=== PATIENT | female | born 1950 | race Caucasian/White ===

== ENCOUNTER 2016-12-30 13:34 | Outpatient (CLI) | payer MEDICARE, MEDICAID | END 2016-12-30 13:35 | disposition home or self-care (01) | DX: E78.5 Hyperlipidemia, unspecified (principal) ==

== ENCOUNTER 2017-03-21 18:36 | Emergency (ER) | payer MEDICARE, MEDICAID ==
[2017-03-21 19:17] LABS: BASOPHILS % (AUTO) 0.4 %; EOSINOPHILS # (AUTO) 0.2 10^3/uL (0.0-0.7); EOSINOPHILS % (AUTO) 1.6 %; LYMPHOCYTES # (AUTO) 1.2 10^3/uL (1.5-3.5); LYMPHOCYTES % (AUTO) 9.7 %; MEAN CORPUSCULAR HEMOGLOBIN 27.3 pg (27.0-31.0); MEAN CORPUSCULAR HGB CONC 32.6 g/dL (32.0-36.0); MEAN CORPUSCULAR VOLUME 83.5 fL (81.0-99.0); MEAN PLATELET VOLUME 9.2 fL (7.9-10.8); MONOCYTES # (AUTO) 0.8 10^3/uL (0.0-1.0); MONOCYTES % (AUTO) 6.5 %; NEUTROPHILS # (AUTO) 10.3 10^3/uL (1.5-6.6); NEUTROPHILS % (AUTO) 81.8 %; NUCLEATED RED BLOOD CELLS AUTO 0.1 /100WBC; RED BLOOD COUNT 5.51 10^6/uL (4.20-5.40); RED CELL DISTRIBUTION WIDTH 13.7 % (12.0-15.0); UNCORRECTED WHITE BLOOD COUNT 12.6 x10^3/uL; WHITE BLOOD COUNT 12.6 x10^3/uL (4.8-10.8)
[2017-03-21] MEDS ORDERED: HYDROmorphone 1 MG/ML SYRINGE IVP STA ×2 (19:26→20:31)
[2017-03-21] MEDS ORDERED: ONDANSETRON 4 MG/2 ML VIAL IVP STA (19:27)
[2017-03-21 19:33] LABS: ALBUMIN/GLOBULIN RATIO 1.1 (1.0-2.2); BILIRUBIN,TOTAL 0.9 mg/dL (0.2-1.0); CALCIUM 9.5 mg/dL (8.5-10.3); CREATININE 1.1 mg/dL (0.4-1.0); POTASSIUM 3.9 mmol/L (3.5-5.0); TOTAL PROTEIN 7.8 g/dL (6.7-8.2)
[2017-03-21] MEDS ORDERED: HYDROmorphone 1 MG/ML SYRINGE ONE ×2 (19:38→20:39)
[2017-03-21] MEDS ORDERED: ONDANSETRON 4 MG/2 ML VIAL ONE (19:38)
--- NOTE | 2017-03-21 19:54 | ED Physician Documentation ---
PD HPI ABD PAIN - Stated complaint Stated Complaint: ABD/BACK PX - Chief complaint Chief Complaint: Abd Pain - History obtained from History obtained from: Patient - History of Present Illness Timing - onset: Other (Gradual onset lower abdominal pain moving to the right over the day with now severe pain and nausea and one episode of vomiting.She had colon cancer with a partial colectomy in July of last year without adjuvant therapy.) Review of Systems Constitutional: denies: Fever, Chills Nose: reports: Reviewed and negative Cardiac: reports: Reviewed and negative Respiratory: reports: Reviewed and negative GI: reports: Abdominal Pain, Nausea, Vomiting. denies: Constipation, Diarrhea PD PAST MEDICAL HISTORY - Past Medical History Cardiovascular: High cholesterol Respiratory: COPD, Emphysema, Shortness of breath Neuro: Other Endocrine/Autoimmune: None GI: GERD, Chronic constipation, Diverticulitis : None HEENT: Other Psych: Depression, Anxiety, Panic attacks Musculoskeletal: None Derm: None Other Past Medical History: colon cancer, renal insufficiency - Past Surgical History Past Surgical History: Yes General: Bowel surgery, Colonoscopy, Other Neuro: Other - Present Medications Home Medications: Ambulatory Orders Medication Instructions Recorded Confirmed Albuterol Sulfate [Ventolin Hfa] 1 - 2 puffs INH Q6H PRN 01/07/16 03/21/17 Simvastatin [Zocor] 20 mg PO QPM 01/07/16 03/21/17 Docusate Sodium 250Mg Capsule 250 mg PO DAILY PRN #20 capsule 02/09/16 03/21/17 [Colace] Fluticasone/Vilanterol [Breo 1 puffs INH DAILY 06/24/16 03/21/17 Ellipta 200-25 Mcg INH] Tramadol HCl 50 mg PO DAILY PRN 06/24/16 03/21/17 Alprazolam 0.5 mg PO TID PRN 08/05/16 03/21/17 Tiotropium [place] [Spiriva 1 puffs INH DAILY 08/05/16 03/21/17 Respimat] HYDROcod/ACETAM 5/325 [[place] 5/325] 1 - 2 ea PO Q6H PRN #15 tablet 03/21/17 - Allergies Allergies/Adverse Reactions: Allergies Allergy/AdvReac Type Severity Reaction Status Date / Time codeine Allergy Itching Verified 02/09/16 12:11 - Social History Does the pt smoke?: Yes Smoking Status: Current every day smoker Does the pt drink ETOH?: No - Family History Family history: reports: Non contributory - Immunizations Immunizations are current?: Yes PD ED PE NORMAL - Vitals Vital signs reviewed: Yes - General General: Alert and oriented X 3, No acute distress - HEENT HEENT: PERRL, EOMI - Neck Neck: Supple, no meningeal sign, No bony TTP - Cardiac Cardiac: RRR, No murmur - Respiratory Respiratory: No respiratory distress, Clear bilaterally - Abdomen Abdomen: Other (Focal RLQ TTP, Rovsings) - Back Back: No CVA TTP, No spinal TTP - Derm Derm: Normal color, Warm and dry - Neuro Neuro: Alert and oriented X 3, Normal speech - Psych Psych: Normal mood, Normal affect Results - Vitals Vitals: Vital Signs - 24 hr 03/21/17 03/21/17 03/21/17 18:41 19:18 19:49 Temperature 36.6 C 37.3 C Heart Rate 69 87 85 Respiratory 26 H 16 95 H Rate Blood Pressure 133/88 H 141/93 H 137/82 H O2 Saturation 94 100 96 03/21/17 20:48 Temperature Heart Rate 72 Respiratory 16 Rate Blood Pressure 133/75 H O2 Saturation 92 Oxygen O2 Source Room air - Labs Labs: Laboratory Tests 03/21/17 03/21/17 03/21/17 19:00 19:00 20:48 WBC 12.6 H RBC 5.51 H Hgb 15.0 Hct 46.0 MCV 83.5 MCH 27.3 MCHC 32.6 RDW 13.7 Plt Count 310 MPV 9.2 Neut # 10.3 H Lymph # 1.2 L [place] # 0.8 Eos # 0.2 Baso # 0.0 Absolute Nucleated RBC 0.01 Nucleated RBCs 0.1 Sodium 135 Potassium 3.9 Chloride 101 Carbon Dioxide 24 Anion Gap 10.0 BUN 10 Creatinine 1.1 H Estimated GFR (MDRD) 50 L Glucose 104 H Calcium 9.5 Total Bilirubin 0.9 AST 20 ALT 10 Alkaline Phosphatase 89 Total Protein 7.8 Albumin 4.1 Globulin 3.7 Albumin/Globulin Ratio 1.1 Lipase 26 Urine Color YELLOW Urine Clarity CLEAR Urine pH 6.0 Ur Specific [place] 1.010 Urine Protein NEGATIVE Urine Glucose (UA) NEGATIVE Urine Ketones 15 H Urine Occult Blood TRACE-INTA Urine Nitrite NEGATIVE Urine Bilirubin NEGATIVE Urine Urobilinogen 0.2 (NORMAL) Ur Leukocyte Esterase NEGATIVE Ur Microscopic Review NOT INDICATED Urine Culture Comments NOT INDICATED - Rads (name of study) Ct A/P Radiology: EMP read contemporaneously (Hydronephrosis due to soft tissue mass at the right UVJ, diverticulosis, cholelithiasis.) PD MEDICAL DECISION MAKING - ED course ED course: 66-year-old woman presents with right lower quadrant pain, initial concern was for appendicitis, but review of the records showed that her appendix was removed with her hemicolectomy last year. CT findings show hydronephrosis due to a soft tissue mass at the right UVJ, further workup was recommended. I spoke with the urologist on-call for hers, Nicole Mcgee for [facility], who felt that she could be safely discharged given that her urinalysis was without evidence of infection and outpatient workup will be pursued. 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 I spoke with Dr. Nicole lou, who is partner of Dr. Alarcon's. Call her office tomorrow , the phone number is [phone], take the CD of the CAT scan with you to that appointment. Your blood pressure was elevated today on check into the emergency department. This does not mean that you have hypertension, it is a common phenomenon to come to the emergency department and have elevated blood pressure. I recommend that she see her primary care physician within the week to have it rechecked when you are feeling better.
[2017-03-21] MEDS ORDERED: IOPAMIDOL-300 100 ML VIAL IVP ONE (20:13)
[2017-03-21] MEDS ORDERED: SODIUM CHLORIDE 0.9% 1,000 ML IV ONE (20:31)
--- NOTE | 2017-03-21 21:03 | CT Preliminary Report ---
Exam: CT Abdomen/Pelvis W/ IMPRESSION: 1. Moderate right renal atrophy appears similar to the prior. There is severe right hydronephrosis an d dilated right extrarenal pelvis that appear increased. New [id number] right hydroureter with adjacent stranding and this ureter is dilated down to a new soft tissue mass at the right ureterovesi cular junction. This mass could represent a malignant mass and further workup is recommended. 2. Severe sigmoid diverticulosis without definite evidence for acute diverticulitis. 3. Cholelithiasis. 4. Otherwise, as above. [facility] SITE ID: [id number]
--- NOTE | 2017-03-21 21:06 | CT Report ---
EXAM: CT ABDOMEN AND PELVIS EXAM DATE: 03/21/2017 08:20 PM. CLINICAL HISTORY: Right lower quadrant pain. Blood in stool. COMPARISONS: CT abdomen and pelvis 06/07/2016. TECHNIQUE: Routine helical CT imaging was performed through the abdomen and pelvis. IV contrast: 80 m L Isovue 300. Enteric contrast: No. Reconstructions: Coronal and sagittal. In accordance with CT protocol optimization, one or more of the following dose reduction techniques w ere utilized for this exam: automated exposure control, adjustment of mA and/or KV based on patient s ize, or use of iterative reconstructive technique. FINDINGS: Lung Bases: Scattered calcified pulmonary nodules. Mild bibasilar scarring or atelectasis. Right lowe r lobe posterior subpleural cyst measuring 3.8 x 1.6 cm. Coronary artery calcification. Liver: Anterior liver dome liver cyst measures 1.8 cm, mildly increased from the prior. Gallbladder/Bile Ducts: Multiple calcified gallstones. No bile duct dilatation. Spleen: Normal. Pancreas: Normal. Adrenal Glands: Normal. Kidneys: Moderate atrophy of the right kidney. Severe right hydronephrosis and dilated extrarenal pel vis, increased compared to the prior. New right mild to moderate hydroureter with adjacent stranding. There is hydroureter down to the right ureterovesicular but no definite ureteral calculus is seen. T here is new soft tissue mass at the region of the right ureterovesicular junction located between the bladder and anterior vaginal wall, causes mass effect on the bladder, measures 2.5 x 3 cm and could be causing increased obstruction of the right kidney. Unremarkable left kidney. Peritoneal Cavity/Bowel: Colonic enteric anastomosis seen at the upper mid pelvis. No evidence for smooth wel obstruction. Severe sigmoid diverticulosis without definite evidence for acute diverticulitis. No perforation seen. No free fluid or free air. No evidence for abscess. No evidence for bowel obstruct ion . Pelvic Organs: See above. The uterus is anteverted. Vasculature: No abdominal aortic aneurysm. Marked atherosclerotic calcification. Bones: No acute bone findings IMPRESSION: 1. Moderate right renal atrophy appears similar to the prior. There is severe right hydronephrosis an d dilated right extrarenal pelvis that appear increased. New [id number] right hydroureter with adjacent stranding and this ureter is dilated down to a new soft tissue mass at the right ureterovesi cular junction. This mass could represent a malignant mass and further workup is recommended. 2. Severe sigmoid diverticulosis without definite evidence for acute diverticulitis. 3. Cholelithiasis. 4. Otherwise, as above. [facility] Referring Provider Line: [phone] SITE ID: [id number]
[2017-03-21 21:10] LABS: BILIRUBIN,URINE NEGATIVE (NEGATIVE)
[2017-03-21 21:21] LABS: UA CHARGE (STRIP ONLY) YES; UR CULTURE IF IND NOT INDICATED
[2017-03-21] MEDS ORDERED: HYDROcod/ACET 5/325 Prepack 6 PO STA (21:32)
[2017-03-21] MEDS ORDERED: HYDROcod/ACET 5/325 Prepack 6 PO ONE (21:35)
[2017-03-21 21:46] VITALS: BP 125/78
== END 2017-03-21 22:44 | disposition home or self-care (01) ==
LOC: ED 18:36
DX: R19.00 Intra-abdominal and pelvic swelling, mass and lump, unspecified site (principal); Q62.0 Congenital hydronephrosis; R03.0 Elevated blood-pressure reading, without diagnosis of hypertension; F17.200 Nicotine dependence, unspecified, uncomplicated; Z85.038 Personal history of other malignant neoplasm of large intestine; Z90.49 Acquired absence of other specified parts of digestive tract
CPT/HCPCS: 36415; 74177; 80053; 81003; 83690; 85025; 96374; 96375; 96376; 99284; J1170; Q9967; 81001; 87086

== ENCOUNTER 2017-08-14 08:00 | Outpatient (CLI) | payer MEDICARE, MEDICAID ==
[2017-08-14 19:05] LABS: BILIRUBIN,URINE NEGATIVE (NEGATIVE); PH,URINE 6.5 PH (5.0-7.5)
[2017-08-14 19:10] LABS: UA w/ MICROSCOPIC CHARGE YES
[2017-08-14 19:33] LABS: UR CULTURE IF IND INDICATED; WBC,URINE >25 /HPF (0-5)
== END 2017-08-14 08:01 | disposition home or self-care (01) ==
LOC: LAB.N 08:00
PROVIDERS: ATTEND Nurse Practitioner Gerontology
DX: R82.90 Unspecified abnormal findings in urine (principal); C79.11 Secondary malignant neoplasm of bladder
CPT/HCPCS: 81001; 81003; 87086

== ENCOUNTER 2017-08-14 17:20 | Outpatient (CLI) | payer MEDICARE, MEDICAID ==
--- NOTE | 2017-08-14 18:16 | CONSULTATION NOTE ---
Palliative Care Consultation - Referral Referring Provider: Laurel HYDE Time of Visit: 9809-9290 Referral setting: Home (Patient seen in her home setting secondary is considerable and taxing effort for the patient to leave the home, she is quite dizzy and has significant right lower quadrant pain. She also has poor activity tolerance) Referral Reason: Metastatic Cervical Cancer/Bladder Invasion - Information Sources Records reviewed: Previous records reviewed History/Review of Systems obtained from: Patient, Family (Dana, daughter present for most of visit) Exam limitations: Clinical condition (Patient tearful, and very very anxious) - History of Present Illness Brief History of Present Illness: Thank you Laurel Solis for asking palliative care consult seem to be involved in the care of your patient I will follow her ongoing for her symptom management needs. This is a 66-year-old woman who is very anxious, and presents with uncontrolled pain, constipation, anxiety disorder, and worsening fatigue. Her symptoms have been escalating over the last several weeks, but most severely in last few days. 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 This was in April 2017. The hope was this would relieve her right-sided abdominal and flank pain. However her pain persisted, she was admitted on 06/23/2017 with sepsis, and increasing abdominal pain, was found to have a large mass involving the lower uterine segment and cervix and posterior wall of the bladder. The dimensions are [id number]. As well as a malignant node. 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 Patient reports, I do not have confirmation of this, there are understanding of the PET scan is it is a local regional disease, she had no evidence of disease in her liver or further spread. The patient's plan is that she understands is to have a PICC placed on this week, she is to get chemoradiation starting 08/21 up at [facility]. Dr. Ted Valadez is a radiation oncologist as well as Dr. Jae Ruiz is the oncologist. Patient reports increasing abdominal pain and right groin area radiating up into the back. She has been on MS Contin 30 mg twice daily. She reports this usually has controlled her pain but over the last 24 hours she has needed to take some extra hydrocodone 5 mg/325 mg APAP with relief. Patient is also severely anxious, has not been taking her escitalopram Which she uses for her anxiety disorder as she has run out of her prescription. Unfortunately her daughter was not aware of this. Patient has also been utilizing Schofield' milk of magnesia every other day, she still has not been having good bowel movements , and with pressure has exacerbated this pain. She presents today with dehydration, nausea, and has had very little intake secondary to the above symptoms. She also reports some frequency and urgency with urinating with increased discomfort. She did provide me a urine specimen which was fairly milky in consistency. She is very reticent as far as returning back to the hospital, we did discuss can try and treat her current constellation of symptoms but if she is worse and she is to proceed to the emergency room. Medical/Surgical History - Past Medical History Cardiovascular: reports: High cholesterol Respiratory: reports: COPD, Emphysema, Shortness of breath Neuro: reports: Fainting, Other (clipped brain aneurysm) Endocrine/Autoimmune: reports: None GI: reports: GERD, Chronic constipation, Diverticulitis, Other (colon cancer;) VOLUMETRIC WEIGHER: reports: Other (cervical cancer with extension into the bladder) : reports: Incontinence, Other (nonfunctiong right kidney s/p nephrectomy) HEENT: reports: Other Psych: reports: Depression, Anxiety, Panic attacks Musculoskeletal: reports: None Derm: reports: None MRSA Hx?: No - Past Surgical History General: reports: Bowel surgery, Colonoscopy Neuro: reports: Other (clipped brain aneursym) - Substance History Tobacco Details: Cigarettes (50 pack history) Social History - Living Situation Living arrangement: At home Living Situation: With family (Relocated from [place] 2 years ago, now lives with daughter's family and daughter Dana. Dana has 3 children as well as caregiving duties to her father. Father does not live at home but is from [facility].) Family History - Family History Family History: Mother: , Father: , Sister: Cancer (bone) Medications/Allergies - Medications Home Medications: Ambulatory Orders Medication Instructions Recorded Confirmed Fluticasone/Vilanterol [Breo 1 puffs INH DAILY 06/24/16 08/14/17 Ellipta 200-25 Mcg INH] Tiotropium [place] [Spiriva 2 puffs INH BID 08/05/16 08/14/17 Respimat] Ciprofloxacin HCl [Cipro] 500 mg PO BID 08/14/17 08/14/17 Cranberry Fruit Extract [Cranberry] 1 tab PO DAILY 08/14/17 08/14/17 Escitalopram Oxalate 10 mg PO BID 08/14/17 08/14/17 HYDROcod/ACETAM 5/325 [[place] 5/325] 1 - 2 ea PO Q4HR PRN MDD 10 tabs 08/14/17 Morphine Sulfate [Morphine Sulfate 30 mg PO BID 08/14/17 08/14/17 ER] Ondansetron [Ondansetron Odt] 8 mg PO Q6HR PRN 08/14/17 08/14/17 Polyethylene Glycol 3350 [Miralax] 17 gm PO DAILY 08/14/17 08/14/17 Saccharomyces Boulardii [Florastor] 250 mg PO BID 08/14/17 08/14/17 Sennosides [Senna] 2 - 3 tab PO BID 08/14/17 08/14/17 - Allergies Allergies/Adverse Reactions: Allergies Allergy/AdvReac Type Severity Reaction Status Date / Time codeine Allergy Itching Verified 02/09/16 12:11 Review of Systems - Constitutional Constitutional: reports: Fatigue, Poor appetite, Weight loss (20-30 wt loss last few months; 6 pounds in last week). denies: Fever, Chills, Night sweats - Ears, Nose & Throat Ears, Nose & Throat: reports: Dry mouth - Cardiovascular Cardiovascular: reports: Lightheadedness, Exertional dyspnea, Decr. exercise tolerance - Respiratory Respiratory: reports: Cough, Sputum production, Wheezing, SOB at rest, SOB with exertion - Gastrointestinal Gastrointestinal: reports: Constipation, Nausea (has run out of ondansetron; did not use metoclopramide as did not perceive helped), Vomiting (at times 2--3 x day), Reflux/heartburn, Poor appetite, Early satiety - Genitourinary Genitourinary: reports: Dysuria, Frequency, Incontinence (new symptom; reports retention at times and needs to push on bladder to go), Other (reports cloudy urine for 2 days) - Musculoskeletal Musculoskeletal: reports: Stiffness, Muscle weakness, Other (spending most of time in bed) - Integumentary Integumentary: reports: Dryness - Neurological Neurological: reports: General weakness, Dizziness, Memory problems - Psychiatric Psychiatric: reports: Depression, Anxiety - Hematologic/Lymphatic Hematologic/Lymphatic: reports: Recurrent infections (hospitalized in june with sepsis) - All Other Systems All Other Systems: reports: Reviewed and negative Physical Exam - Vital Signs Temperature: 97.0 C Pulse Rate: 80 (96 with standing) Respiratory Rate: 18 O2 Saturation: 93 (ra @ rest; uses oxygen 2 liters at night and prn) Blood Pressure: 122/68 (laying; 92/64 standing) - Physical Exam General Appearance: positive: Moderate distress, Anxious Eyes Bilateral: positive: Normal inspection ENT: positive: Dry mucous membranes Neck: positive: No JVD, Trachea midline Cardiovascular: positive: Regular rate & rhythm Respiratory: positive: Diminished throughout. negative: Wheezes, Rales, Rhonchi Abdomen: positive: Abnml bowel sounds (sluggish), Tenderness (right side with minimal pressure; no mass appreciated), Guarding Skin: positive: Pallor, Dryness Extremities: positive: No pedal edema, Other (very weak) Neurologic/Psychiatric: positive: Oriented x3, Depressed mood/affect Palliative Care - POLST Patient has POLST: No Pain: Pain worsening, Location (right lower quadrant/groin worsens with pressure of bowel movements; voiding pain 05/14 time of visit), Comment (ms er 30 mg since 08/01; needing 1-2 doses 24 hours of btp using hydrocodone 5 mg/325 mg; reports oxycodone/apap makes her feel worse) Tiredness/Fatigue: Severe (7-10) Drowsiness/Sedation: Moderate (4-6) (reports sleeps most of day) Nausea: Moderate (4-6), With vomiting Depression: Moderate (4-6) Anxiety: Severe (7-10) (had run out of escitalopram last few doses using it intermittently; very tremulous) Dyspnea: Moderate (4-6) Anorexia: Severe (7-10) Sleep: Sleeps poorly (very distressed and overwhelmed with current situation; feels it worse at night) Constipation: Yes, Unmanaged (using renée mom every other day; stool hard and difficult) Feelings of wellbeing/Perceived Quality of Life: Poor, Worsening Performance Status: Patient with hospital bed set up in living room, does spend most the time in bed are recliner sleeping. She had had home health for short period of time after hospitalization, reports she had been doing fairly well with progressive ambulation and increased tolerance of activity. This shower is upstairs which does make it difficult, she does need some standby assistance with this. She is very little activity tolerance today her fatigue has been worsening and is quite dizzy with her dehydration. - Palliative Care Discussion: Patient with significant constellation of symptoms today, goal is to address these in an urgent matter. Patient very fearful of returning to hospital or going to the ED, current plan written out with hopes to be able to avoid but signs and symptoms reviewed with daughter and if any question or patient worsens particularly with any alteration in consciousness they are to proceed to the ED. I did not address advanced care directives, this visit was spent on prioritizing symptom management, establishing rapport and trust, and trying to put the pieces of the puzzle together. Patient feeling overwhelmed, daughter is quite supportive but has multiple responsibilities and has given patient quite a bit of leeway as far as managing her own care. All in agreement that Dana during this time. We will oversee her medications and assist patient. Patient currently choosing to proceed with treatment, did not explore this as patient is very anxious at today's visit. 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 She presents today with high symptom burden, including uncontrolled pain, nausea, and anorexia, dehydration, constipation and probable UTI. She also has fairly advanced COPD, with breathlessness at rest, and maximally managed. The goal is to address her current constellation of symptoms and try to avoid hospitalization and ED, the patient at high risk for sequela of such given her presentation today. Recommendations/Counseling Done: 1. Pain of neoplastic origin. Patient currently on MS extended release 30 mg twice daily. She has 3 choices for breakthrough pain, tramadol, Percocet, and Vicodin. Recommended to discontinue tramadol secondary to her underlying nausea and poor choice for breakthrough pain. Patient perceives hydrocodone with less side effects and tolerates better than Percocet, reviewed limitation with acetaminophen for titration, knows not to exceed more than 10 tabs in 24 hours. Inst. to use hydrocodone only at this time. Counseling regarding opioid safety, instructed to use breakthrough pain dosing before pain out of control, to track accordingly. Patient with severe uncontrolled pain at time of visit, instructed to take pain pill with some relief prior to end of visit. #2 anxiety disorder. This appears to be long-standing for patient, she does report she gets quite nervous and overwrought and overwhelmed with physician visits. Given her history this last year I can see how this might be exacerbated. She has been taking her escitalopram as as needed to manage her anxiety. We discussed the need to restart this and titrate up to a therapeutic dose. Prior to running out of her medication, she was on 10 mg twice daily. Reviewed with daughter and patient to start today with 5 mg twice daily for 1 week; 5 mg a.m. and 10 mg p.m. for 1 week; and then 10 mg twice daily.Will have Palliative Care Aviation Consultant see patient for support as well. 3. Nausea with intermittent vomiting. I suspect this is multifactorial in origin. She is ran out of her ondansetron, has found the metoclopramide not helpful. Rewrote prescription for ondansetron 8 mg 1 tab every 6 hours as needed. Did review this is quite constipating and if taking more than 2 doses in 24 hours to add an extra senna. 4. Dehydration. Patient probably had less than 24 ounces last 24 hours, she did have a insure and just a few bites of food. This sounds like this is been a pattern for several days. Recommended patient consider going in and getting hydration IVs either through clinic or ED, quite resistant. She would like to try oral rehydration first. Hopefully this will be more successful with the ondansetron, was instructed to increase her Ensure to 3 times a day particularly since her intake has been minimal over the last couple weeks and she has had a 6 pound weight loss. This is of concern pending her start for chemo radiation on 08/21. Did review patient would need to be eating and drinking at a better level than she is currently. 5. Anorexia. Will add dexamethasone 4 mg for 1 week and then decrease to 2 mg daily. Patient needs something to address her underlying anorexia this may also add to her management of her nausea as well as assist with pain management. Reviewed that this is will be short-term but in an attempt to get over "the hump" that she currently is experiencing. 6. Suspected UTI. Given patient's constellation of symptoms, increasing dysuria and cloudy urine for the last 2-3 days. Will go ahead and start her on Cipro 500 mg twice daily UA was taken to clinic, PCP Laurel Solis did enter a specimen order. Was informed had already started antibiotic, will watch for CHESS INSTRUCTOR as well as started on Florastor 250 mg twice daily for 2 weeks. 7. Fatigue this is multifactorial in origin, patient with dehydration, anorexia , probable UTI and uncontrolled pain. Hopefully will get some relief and support with use of the dexamethasone as well. 8. advanced care planning. Did not address at this visit as of her multiple other priorities. Did discuss with daughter if patient not improved in 2448 hrs. will need to most likely return to ED and possible hospitalization. Time Spent: 90 minutes with greater than 50% of this done in counseling regarding symptom management coordination of care with PCP and anticipatory guidance
== END 2017-08-14 17:21 | disposition home or self-care (01) ==
LOC: PC 17:20
PROVIDERS: ATTEND Nurse Practitioner Adult Health
DX: Z51.5 Encounter for palliative care (principal); G89.3 Neoplasm related pain (acute) (chronic); C53.9 Malignant neoplasm of cervix uteri, unspecified; C79.11 Secondary malignant neoplasm of bladder; F41.9 Anxiety disorder, unspecified; R11.2 Nausea with vomiting, unspecified; E86.0 Dehydration; R63.0 Anorexia; R53.83 Other fatigue; J44.9 Chronic obstructive pulmonary disease, unspecified; R10.31 Right lower quadrant pain; K59.00 Constipation, unspecified; J43.9 Emphysema, unspecified; R06.02 Shortness of breath; F32.9 Major depressive disorder, single episode, unspecified; F17.210 Nicotine dependence, cigarettes, uncomplicated; Z79.891 Long term (current) use of opiate analgesic; R63.4 Abnormal weight loss; R05 Cough; R30.0 Dysuria; M62.81 Muscle weakness (generalized)
CPT/HCPCS: 99345

== ENCOUNTER 2017-09-07 12:39 | Outpatient (CLI) | payer MEDICARE, MEDICAID | END 2017-09-07 12:40 | disposition short-term general hospital (02) | LOC: EMS 12:39 | PROVIDERS: ATTEND Surgery | DX: R06.02 Shortness of breath (principal); R42 Dizziness and giddiness; R53.1 Weakness | CPT/HCPCS: A0425; A0427 ==

== ENCOUNTER 2017-09-15 17:20 | Outpatient (CLI) | payer MEDICARE, MEDICAID ==
--- NOTE | 2017-09-15 21:01 | CONSULTATION NOTE ---
Palliative Care Follow Up - Referral Referring Provider: Laurel HYDE Time of Visit: Referral setting: Home (Patient seen her home setting secondary considerable and taxing effort for the patient to leave the home as well as to facilitate treatment plan and family conference.) Referral Reason: Met Cervical Cancer/Hydronephrosis resulting in nephrostomy tube L side - Information Sources Records reviewed: Previous records reviewed History/Review of Systems obtained from: Patient, Family (Daughter Dana primary caregiver present) Exam limitations: Clinical condition (patient with significant anxiety but improved by end of visit) - History of Present Illness Update Brief HPI Update: This is a rosa m 66-year-old woman who has had a difficult course over the last several weeks, she has metastatic cervical cancer to his feet at the lower uterine segment of the cervix as well as the posterior wall of the bladder. In the context of this it has also in case they readers and resulted in hydronephrosis of her left kidney. 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 She has started chemotherapy, after PICC line placement on 08/17, and initiated radiation therapy. Unfortunately she was admitted yet again with a severe enterococcal infection that was quite complex that resulted in sepsis and a prolonged hospitalization. Unfortunately because of the tumor, they were unable to place a stent, her understanding is they will retry this next week and she is quite hopeful. Right now she has nephrostomy tube out of her left flank. Her symptom burden includes pain, this mostly located in her right groin area radiating through her back of her pelvis. High during her hospitalization she did see the palliative care team there, was initiated on fentanyl 12 mcg and yesterday they increased it to 25 mcg patch. She does report significant euphoria with that change, but is feeling better today, does not demonstrate any sedation, or confusion regarding this. She still is using her hydrocodone for breakthrough pain medication, she is tolerated oxycodone poorly in the past. She reports her nausea is currently under control, she did have a little bit of what she thought was locked on difficulty chewing and eating, and review of her medications unable to identify any interactions are suspected underlying etiology. This is only occurred once, she denies any symptoms at time of visit. I am she has had some increased tremulousness and shaking this morning denies fever chills and this was calm down as we addressed her feelings of anxiety and distress. She does have underlying anxiety disorder, has been managed with her is salad citalopram, she does do well to process some of her fears and concerns and were able to spend some time addressing these today. Previous to my arrival, she did have a fall this is not related to balance or weakness but the dog pushing over. She does admit to intermittent dizziness, and review of her most recent labs her hemoglobin was 7.8 and hematocrit 24.5 as well as her WBC is at 13.2. Social History - Living Situation Living arrangement: At home Living Situation: With family (She relocated 2 years ago from [place] now living in with her daughter and her family. Her daughter Dana has 3 children as well as caregiving duties to her father, the patient's ex-) Medications/Allergies - Medications Home Medications: Ambulatory Orders Medication Instructions Recorded Confirmed Fluticasone/Vilanterol [Breo 1 puffs INH DAILY 06/24/16 09/16/17 Ellipta 200-25 Mcg INH] Cranberry Fruit Extract [Cranberry] 2 tab PO TID 08/14/17 09/16/17 Escitalopram Oxalate 20 mg PO DAILY 08/14/17 09/16/17 HYDROcod/ACETAM 5/325 [[place] 5/325] 1 - 2 ea PO Q4HR PRN MDD 10 tabs 08/14/17 Ondansetron [Ondansetron Odt] 8 mg PO Q8HR PRN 08/14/17 09/16/17 Polyethylene Glycol 3350 [Miralax] 17 gm PO BID 08/14/17 09/16/17 Sennosides [Senna] 3 tab PO BID 08/14/17 09/16/17 Albuterol Sulf [Ventolin Hfa 2 puffs INH Q4HR PRN 09/16/17 09/16/17 Inhaler] Budesonide/Formoterol Fumarate 2 puffs INH BID 09/16/17 09/16/17 [Symbicort 160-4.5 Mcg Inhaler] Cephalexin [Keflex] 500 mg PO TID 09/16/17 09/16/17 Dexamethasone 2 mg PO DAILY 09/16/17 09/16/17 fentaNYL [Fentanyl 25mcg patch] 25 mcg TOP DAILY 09/16/17 09/16/17 - Allergies Allergies/Adverse Reactions: Allergies Allergy/AdvReac Type Severity Reaction Status Date / Time codeine Allergy Itching Verified 02/09/16 12:11 Review of Systems - Constitutional Constitutional: reports: Fatigue, Weight loss - Eyes Eyes: reports: Vision loss, Corrective lenses - Ears, Nose & Throat Ears, Nose & Throat: reports: Hearing loss, Dry mouth - Cardiovascular Cardiovascular: reports: Exertional dyspnea, Decr. exercise tolerance, Other ( PICC right upper arm) - Respiratory Respiratory: reports: SOB with exertion. denies: Cough - Gastrointestinal Gastrointestinal: reports: Constipation (well controlled on current regimen), Good appetite. denies: Nausea, Reflux/heartburn - Genitourinary Genitourinary: reports: Other (has only right kidney; new nephrostomy tube hoping to change out to stent next week) - Musculoskeletal Musculoskeletal: reports: Stiffness, Muscle weakness, Other (fall just prioir to arrival; fell on right arm; no residual pain; dog knocked her over not attributed to balance) - Integumentary Integumentary: reports: Dryness, Other (neph. exit site with some leakage; redid lower securing device to remove kink) - Neurological Neurological: reports: General weakness - Psychiatric Psychiatric: reports: Anxiety (Long-time anxiety disorder, has spent many weeks this last couple months in the hospital, please see palliative care discussion) - Endocrine Endocrine: reports: Intolerance to cold - Hematologic/Lymphatic Hematologic/Lymphatic: reports: Anemia (24), Recurrent infections (sepsis/ urosepsis) - All Other Systems All Other Systems: reports: Reviewed and negative Physical Exam - Vital Signs Temperature: 98.8 C Pulse Rate: 108 Respiratory Rate: 20 O2 Saturation: 98 (ra @ rest) Blood Pressure: 98/62 - Physical Exam General Appearance: positive: No acute distress, Anxious Eyes Bilateral: positive: Normal inspection ENT: positive: Pharynx nml Neck: positive: Trachea midline Cardiovascular: positive: Regular rate & rhythm Respiratory: positive: Diminished throughout Abdomen: positive: Nml bowel sounds, Tenderness Skin: positive: Pallor, Dryness Palliative Care - POLST Patient has POLST: Yes POLST Status: DNR, Selective Treatment (This is filled out with Dr. Emmy Del Castillo, unfortunately the patient and daughter could not really expand further on the conversation. We did discuss at her next visit we would revisit advanced directives.) Pain: Pain improved, Location (Right groin area radiating through to the back. She is taking fentanyl 25 mcg this is a new dose as of yesterday, using hydrocodone 5 mg/325 mg for breakthrough dosing. The pain is intermittent in nature,.) Tiredness/Fatigue: Moderate (4-6) Drowsiness/Sedation: None Nausea: None Depression: Mild (1-3) Anxiety: Moderate (4-6) Dyspnea: Moderate (4-6), Comment (Ports overall her underlying COPD which is fairly severe has been doing okay, I suspect it is been tempered somewhat by the Decadron.) Anorexia: None (Reports her appetite has improved dramatically she is doing better overall. She remains on the Decadron 2 mg daily. Did discuss about titrating off if she remains with improved appetite at next visit) Sleep: Variable sleep pattern Constipation: Yes, Opoid induced, Managed (Have continued on aggressive bowel medications with MiraLAX 17 g twice daily and the senna 2 tabs 3 times daily having regular ongoing bowel movements. Have been concerned about her developing diarrhea secondary to the radiation and antibiotics as well as the chemotherapy, but continues to struggle with difficult bowels if misses medication) Feelings of wellbeing/Perceived Quality of Life: Fair, Improved Performance Status: She is feeling somewhat stronger, is able to ambulate short distances in the house. She does fatigue quite quickly though, we did discuss the influence of anemia on once ability to tolerate activity. She is getting some assistance with her daughter as far as bathing, transportation, patient is able to self feed but daughter is doing meal prep - Palliative Care Discussion: Daughter had left briefly during our visit I did have a one-on-one conversation with patient. She is feeling overwhelmed by all the events over the last few weeks, and is expressing fears particularly around not getting better, more complications and hospitalizations related to her fragile status, she does recognize the seriousness of her illness but is hoping to get both quality and quantity out of her treatment plan. She is worried about being any burden on her daughter, she is very hopeful that she will stay well and no further infections for the rest of the course of her treatment.When daughters returned I did discuss concerns, Dana would like to continue with palliative care support and working with just 1 person regarding her medications other than of course antibiotics from the specialists. We did discuss it is probably the best course of action and will try and coordinate with her other providers. Impression and Recommendations - Palliative Care Impression: This is a rosa m 66-year-old woman in an unfortunate situation with metastatic cervical cancer cancer with invasion into the bladder wall, nephrostomy tube on the left side as result of hydronephrosis. She has now had several hospitalizations for her sepsis, she is currently on oral antibiotics, concerned though about the complexity of her infection. She is currently continuing with her chemotherapy and radiation, she does present with high symptom burden, and psychosocial needs. Recommendations/Counseling Done: 1. Pain of neoplastic origin. Patient titrated up to fentanyl 25 mcg patch as of yesterday, she did have some euphoria with this. Today she is doing fairly well and adjusting. Counseling to patient and daughter regarding education on how fentanyl patch works. She does not have oversedation, has had some improved pain management with this, and less side effects. She will continue to use the hydrocodone 5 mg/325 mg for breakthrough pain, she tolerates this better has a side effect of nausea of oxycodone. 2. Constipation. Her current bowel program of MiraLAX twice daily and senna 2 tabs 3 times daily is keeping her bowels soft and moving. They are aware to watch for symptoms of diarrhea secondary to her radiation and chemotherapy. She has suffered though greatly in the past with constipation so at this point will leave the bowel program as is. 3. Complex enterococcal urinary tract infection. Patient currently on antibiotics, she does have invasion into her bladder wall this is added to the complexity of patient being able to tolerate treatment. She has been admitted now 3 times with sepsis. She is very concerned in the context of risk for future hospitalizations. She is aware though if she does present with signs and symptoms that she was less than cooperative and going in last time, she will presented to the ED as indicated. 4. Nephrostomy tube. She did have a left nephrostomy tube placement, she is quite hopeful that the stent will be replaced this week. I found tube kinked with some bleeding I suspect from pulling. Did read to progress the positioning. Dressing at nephrostomy exit site does appear permanent in nature. Call to [facility] office regarding noted bleeding, and concerns for stopcock that is making it more at high risk for pulling and dislodgment. Daughter instructed to follow-up with urologist if any further bleeding or concerns given would need to be addressed by interventional radiologist or urologist independently. 5. Anxiety. Patient does have generalized anxiety disorder. This is been exacerbated by her multiple hospitalizations, and her feelings of increased and certainly related to the outcome of her treatment. She does do well with counseling and support, she is on her salad citalopram 20 mg daily, she does have Lorazepam 0.5 mg available for escalating anxiety attacks. Counseling regarding using this but did encourage her to use this only as needed 6. Anorexia. She remains on the Decadron 2 mg daily, this has been quite helpful as far as an appetite stimulant for her. I suspect is also helped her underlying COPD as she is felt this is been fairly stable. If patient continues to do well with increased intake, no further weight loss, and eating adequate calories will look at titrating off over the next few weeks. 6. Advanced care planning. Patient did see palliative care practitioner in her last hospitalization with completion of the [facility]. It does appear it would be helpful to revisit this as far as the implications and conversations and future planning. Given the length already of our visit we agreed to defer this till next visit the patient is quite aware of the seriousness of her illness, the future implications regarding this but remains hopeful in getting both quality and quantity out of her treatment plan. Her short-term goal is just to not be rehospitalized and get her stent replaced Time Spent: 75 minutes spent with greater than 50% of this done in counseling regarding pain management, anorexia, anxiety and anticipatory guidance. Also provided coordination of care and follow-up with urology regarding nephrostomy tube.
== END 2017-09-15 17:21 | disposition home or self-care (01) ==
LOC: PC 17:20
PROVIDERS: ATTEND Nurse Practitioner Adult Health
DX: Z51.5 Encounter for palliative care (principal); G89.3 Neoplasm related pain (acute) (chronic); C79.82 Secondary malignant neoplasm of genital organs; C79.11 Secondary malignant neoplasm of bladder; K59.03 Drug induced constipation; T40.2X5D Adverse effect of other opioids, subsequent encounter; N39.0 Urinary tract infection, site not specified; B95.2 Enterococcus as the cause of diseases classified elsewhere; Z93.6 Other artificial openings of urinary tract status; F41.9 Anxiety disorder, unspecified; R63.0 Anorexia; J44.9 Chronic obstructive pulmonary disease, unspecified; N13.30 Unspecified hydronephrosis; Z90.5 Acquired absence of kidney; R10.31 Right lower quadrant pain; Z79.891 Long term (current) use of opiate analgesic; Z79.51 Long term (current) use of inhaled steroids; M62.81 Muscle weakness (generalized); R06.00 Dyspnea, unspecified; Z66 Do not resuscitate
CPT/HCPCS: 99350

== ENCOUNTER 2017-09-22 10:10 | Outpatient (CLI) | payer MEDICARE, MEDICAID ==
--- NOTE | 2017-09-22 17:19 | CONSULTATION NOTE ---
Palliative Care Follow Up - Referral Referring Provider: Laurel HYDE Time of Visit: 1010-11:15 Referral setting: Home (Patient is seen at her home setting as it is a taxing considerable effort for her to leave the home as well as to facilitate treatment plan and family conference) Referral Reason: Pain of neoplastic origin/Stage KYUNG Cervical cancer - Information Sources Records reviewed: Previous records reviewed History/Review of Systems obtained from: Patient, Family (daughter Dana present) Exam limitations: No limitations - History of Present Illness Update Brief HPI Update: This is a rosa m 66-year-old woman who continues to have a complex course regarding her 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 She is currently in concurrent chemotherapy and radiation, she is receiving weekly carboplatin. Her current mass that is being treated was found on imaging in late June, the original mass was 8.7 x 7.4 x 7.0 cm involving the lower uterine segment/ cervix continuous with the bladder wall. She also has left ureteral obstruction , most recently failed a stent placement, and has an external nephrostomy tube. Her course has been complicated by ongoing infections resulting in hospitalizations in the context of sepsis. She is currently on antibiotics, though of note her white blood count is still at 20.2, she does not present with fever or chills, but is very anxious at baseline, and recurrent hospitalizations have been difficult for her. She also has a treated cerebral aneurysm recently in the last year, removal of her right kidney for pain, long- standing COPD, and tobacco addiction. She is currently managing this with the pain. She presents with fairly high symptom burden, she is currently on fentanyl 25 mcg patch with hydrocodone 5/325 mg APAP for breakthrough pain. She had been doing well with her appetite and eating, she reports over the last week this is declined, and has lost another 4 pounds. She has early satiety, taste changes, and some underlying anxiety. Despite her chemotherapy and radiation to the pelvis, she continues to struggle with constipation, they are currently managing this with titrating her meds appropriately. She also has underlying anxiety and depression, and is easily overwhelmed. Social History - Living Situation Living arrangement: At home Living Situation: With family (She has lived with her daughter's family for the last 2 years, Dana is her primary caregiver who has 3 children's as well as caregiving duties to her father, the patient's ex-) Medications/Allergies - Medications Home Medications: Ambulatory Orders Medication Instructions Recorded Confirmed Fluticasone/Vilanterol [Breo 1 puffs INH DAILY 06/24/16 09/23/17 Ellipta 200-25 Mcg INH] Cranberry Fruit Extract [Cranberry] 2 tab PO TID 08/14/17 09/23/17 Escitalopram Oxalate 20 mg PO DAILY 08/14/17 09/23/17 HYDROcod/ACETAM 5/325 [[place] 5/325] 1 - 2 ea PO Q4HR PRN MDD 10 tabs 08/14/17 Ondansetron [Ondansetron Odt] 8 mg PO Q8HR PRN 08/14/17 09/23/17 Polyethylene Glycol 3350 [Miralax] 17 gm PO BID 08/14/17 09/23/17 Sennosides [Senna] 3 tab PO BID 08/14/17 09/23/17 Albuterol Sulf [Ventolin Hfa 2 puffs INH Q4HR PRN 09/16/17 09/23/17 Inhaler] Budesonide/Formoterol Fumarate 2 puffs INH BID 09/16/17 09/23/17 [Symbicort 160-4.5 Mcg Inhaler] Cephalexin [Keflex] 500 mg PO TID 09/16/17 09/23/17 Dexamethasone 2 mg PO DAILY 09/16/17 09/23/17 fentaNYL [Fentanyl 25mcg patch] 25 mcg TOP DAILY 09/16/17 09/23/17 LORazepam [Ativan] 0.25 - 0.5 mg PO Q6HR PRN 09/23/17 09/23/17 Lactobacillus Acidophilus 1 tab PO BID 09/23/17 09/23/17 [Probiotic Acidophilus] - Allergies Allergies/Adverse Reactions: Allergies Allergy/AdvReac Type Severity Reaction Status Date / Time codeine Allergy Itching Verified 02/09/16 12:11 Review of Systems - Constitutional Constitutional: reports: Fatigue, Weakness, Poor appetite, Weight loss (151 per MD note/scale 09/19). denies: Fever, Chills - Eyes Eyes: reports: Vision loss - Ears, Nose & Throat Ears, Nose & Throat: denies: Mouth lesions - Cardiovascular Cardiovascular: reports: Lightheadedness, Exertional dyspnea, Decr. exercise tolerance. denies: Chest pain - Respiratory Respiratory: reports: SOB with exertion. denies: Cough, Wheezing - Gastrointestinal Gastrointestinal: reports: Abdominal pain (Right lower quadrant, does radiate up into the back area.), Nausea (intermittent; using ondansetron scheduled bid- tid), Early satiety. denies: Reflux/heartburn - Genitourinary Genitourinary: reports: Other (Has nephrostomy tube, still has some spontaneous voiding at times. Urine in bag without blood today, to have procedure on 09/27 for stent placement. Is to have capped off the nephrostomy tube in case not successful) - Musculoskeletal Musculoskeletal: reports: Stiffness, Muscle weakness, Assistive devices (using walker intermittently; has had multiple falls mostly getting in and out of car;) , Other (attributes falls to balance issues) - Integumentary Integumentary: reports: Dryness - Neurological Neurological: reports: General weakness, Memory problems (Intermittently gets confused, this is been problematic since her repair of her aneurysm on top of her ongoing anxiety issues. She does have some short-term memory issues, this is quite frustrating to patient. These have worsened particularly when she is septic) - Psychiatric Psychiatric: reports: Depression, Anxiety - Endocrine Endocrine: reports: Intolerance to cold - Hematologic/Lymphatic Hematologic/Lymphatic: reports: Anemia (hct 28.2), Recurrent infections ( "urininary tract") - All Other Systems All Other Systems: reports: Reviewed and negative Physical Exam - Vital Signs Temperature: 98.4 C Pulse Rate: 99 Respiratory Rate: 20 O2 Saturation: 99 (ra @ rest) Blood Pressure: 102/64 - Physical Exam General Appearance: positive: Alert, Mild distress, Anxious Eyes Bilateral: positive: Normal inspection, No scleral icterus ENT: negative: Oral lesions Neck: positive: No JVD, Trachea midline Cardiovascular: positive: Regular rate & rhythm, Tachycardia Respiratory: positive: Diminished throughout. negative: Wheezes Abdomen: positive: Tenderness (right lower quadrent; exit site of nephrostomy tube on left) Skin: positive: Pallor, Dryness Extremities: positive: No pedal edema Neurologic/Psychiatric: positive: Oriented x3 (STM issues; easily confused if overwhelmed), Other (anxious) Palliative Care - POLST Patient has POLST: Yes POLST Status: DNR, Selective Treatment (redid and updated POLST) Pain: Pain improved, Location (right lower groin area; currently on Fentanyl 25 mcg every three days; unclear of total for break through dose/ has used both percocet and vicodin in purse; think up 6-7 tabs; daughter feels most likely less; this was weighed in discussion of increaseing patch) Tiredness/Fatigue: Severe (7-10) Drowsiness/Sedation: Mild (1-3) Nausea: Mild (1-3) Depression: Mild (1-3) Anxiety: Severe (7-10) Dyspnea: Moderate (4-6) Anorexia: Moderate (4-6) Sleep: Variable sleep pattern Constipation: Yes, Opoid induced, Managed Feelings of wellbeing/Perceived Quality of Life: Fair, Acceptable Performance Status: Is having more weakness, spends quite a bit of time in recliner and/or bed. She does attribute some of this to her balance problems. She is quite fatigued with her current daily trips to radiation. Her daughter does provide her some assistance with bathing, patient can self feed, does need some assistance with dressing overall. Daughter provides support for IADLs and medical care - Palliative Care Discussion: Patient remains very anxious about the outcome of her treatment, and just the length of time and concern about rehospitalization with infection. There are many unsettling things including the upcoming stent placement, and her concern about being a burden on her daughter. Patient does not have DPO a spelled out, she does choose Dana MECOM her daughter home phone number [phone]; cell [phone]. Have given them the paperwork to fill out, they did identify a her son as a secondary follow- up. In the context of the [facility], patient is quite distressed, does not really understand the intent or the reasoning of this. She reports she filled this out with the doctors, but had no real understanding of what this was. She did ask for them to wait for her daughter, Dana was not aware been filled out until she got home and found the form, she does not understand the implications of this. We did discuss in the context of patient and her decision-making, that she can refuse to make decisions or fill out forms without her daughter present, particularly in the context of her memory and anxiety, and wanting this to be a shared decision. Counseling done regarding the [facility], patient does want to be a DNA R, but in the context of though she understands the seriousness of her illness and most likely to have a limited life expectancy, she would continue to choose to be treated for infection as well as ongoing palliative chemotherapy. She would not want any "bills and whistles", or "heroic measures", so selective treatment was selected as well as understanding this is a DO NOT INTUBATE but not a do not treat. At this point in time she would choose for antibiotics support particularly given her current situation, but no tube feedings unless indicated for a temporary situation. We summarized her goals is to focus on quality of life, treat reversible conditions continue palliative chemotherapy and end-of- life she would like to have a at home with hospice. This was explored as far as end-of-life wishes with both her and her daughter, she does not want to be a burden to her family but her daughter would like her to be at home for that event. Questions were answered, also education provided in the role of the [facility], to keep copies with them, if needing to call 911 to make sure this is available, as well as the intent for guidelines for medical treatment overall Results - Lab Results Lab results reviewed: Yes Impression and Recommendations - Palliative Care Impression: This is a rosa m 66-year-old woman who has stage KYUNG Squamous cell cervical cancer involving the lower uterine segment/cervix and invasion into the bladder wall. She also has a left ureteral obstruction, currently with nephrostomy tube. She is receiving concurrent radiation and chemotherapy, she has had recurrent sepsis and infection and remains at high risk for both recurrent infection and possible fistula formation. Patient does present with high symptom burden, psychosocial needs, and will benefit from ongoing palliative care support Recommendations/Counseling Done: 1. Weight loss. This is multifactorial in origin, including early satiety, taste changes, and anorexia. Counseling regarding increasing ensure from 2-3 times a day, caloric suggestions as far as small frequent meals, "double milk", and other high-calorie foods. Patient currently receiving scheduled ondansetron for underlying nausea, will continue this through her chemo/ radiation. 2. Pain of neoplastic origin. She is currently on fentanyl 25 mcg patch, was confused and taking the Percocet which she is reported has caused her increased nausea in the past. Is using the hydrocodone 5 mg/325 mg for breakthrough pain. , Discussed strategy to be able to get better handle on number of tabs used, prior to increasing fentanyl patch would need to be using 5-6 consistently, they will keep track this next week. 3. Constipation they are titrating her senna and MiraLAX appropriately # 4. anxiety disorder. She is on her Lexapro 20 mg every morning, she does have Lorazepam for significant breakthrough anxiety, will have encouraged limited use of this given patient's propensity for falls and overuse. They had not decreased her dexamethasone, they will decrease to 2 mg versus 2 mg twice daily. At this point in time, long-term side effects outweigh benefit. Will titrate down to 1 mg next week. 5. Complex enterococcal urinary tract infection. Patient has just a few more days left of her antibiotics, she does present with elevated white blood cell count. We did discuss again signs and symptoms of infection for which to seek evaluation. Patient may need to go on long-term prophylactic antibiotics, particularly if she is rehospitalized. 6. Advanced care planning. Family conference regarding goals of care, [place] completed with goals defined. Daughter will complete the DPOAE form, and we will distribute her appropriate providers. Oncology note does note that long- term survival at 5 years is 16%, will benefit from ongoing palliative care involvement and support. Patient's ultimate goal at end of life is to be at home with her family, current short term goal is to avoid hospitalization, finish treatment, and improve quality of life. Time Spent: Time spent 65 minutes with greater than 50% of this done in counseling coordination of care, facilitating family conference and establishing goals, education counseling on pain and symptom management and anticipatory guidance
== END 2017-09-22 10:11 | disposition home or self-care (01) ==
LOC: PC 10:10
PROVIDERS: ATTEND Nurse Practitioner Adult Health
DX: Z51.5 Encounter for palliative care (principal); R63.4 Abnormal weight loss; G89.3 Neoplasm related pain (acute) (chronic); C53.9 Malignant neoplasm of cervix uteri, unspecified; K59.03 Drug induced constipation; T40.2X5D Adverse effect of other opioids, subsequent encounter; F41.9 Anxiety disorder, unspecified; N39.0 Urinary tract infection, site not specified; B95.2 Enterococcus as the cause of diseases classified elsewhere; Z79.899 Other long term (current) drug therapy; Z92.3 Personal history of irradiation; Z93.6 Other artificial openings of urinary tract status; J44.9 Chronic obstructive pulmonary disease, unspecified; F17.200 Nicotine dependence, unspecified, uncomplicated; Z79.891 Long term (current) use of opiate analgesic; Z79.51 Long term (current) use of inhaled steroids; M62.81 Muscle weakness (generalized); R29.6 Repeated falls; Z91.81 History of falling; F32.9 Major depressive disorder, single episode, unspecified; Z66 Do not resuscitate
CPT/HCPCS: 99350

== ENCOUNTER 2017-09-24 11:58 | Outpatient (CLI) | payer MEDICARE, MEDICAID | END 2017-09-24 11:59 | disposition short-term general hospital (02) | LOC: EMS 11:58 | PROVIDERS: ATTEND Surgery | DX: R07.9 Chest pain, unspecified (principal); R10.9 Unspecified abdominal pain; R06.00 Dyspnea, unspecified | CPT/HCPCS: A0425; A0427 ==

== ENCOUNTER 2017-09-29 10:00 | Outpatient (CLI) | payer MEDICARE, MEDICAID ==
--- NOTE | 2017-09-29 12:14 | CONSULTATION NOTE ---
Palliative Care Follow Up - Referral Referring Provider: Laurel HYDE Time of Visit: Referral setting: Home Referral Reason: Met Cervical Cancer/Pain of neoplastic origin - Information Sources Records reviewed: Previous records reviewed History/Review of Systems obtained from: Patient, Family (daughter Dana at visit) Exam limitations: No limitations - History of Present Illness Update Brief HPI Update: This is a rosa m anxious 66-year-old woman who continues have a complex course regarding her stage Zeke squamous cell cancer of the cervix. She does have a mass involving the lower uterine segment/cervix continuous with the bladder wall. She also has a left ureteral obstruction, an external nephrostomy tube. She has had multiple courses of hospitalizations in the context of sepsis, and fortunately most recently had a hospitalization from 09/24 - 09/27 actually related to a COPD exacerbation and influenza a/B. She reports only source she been exposed to have been her son-in-law, who has had a cold and has been ill. She continues to present today with anorexia, some shortness of breath, some tightness and wheezing, and cough. Her right groin pain is moderately controlled on her fentanyl 25 mcg patch, she does have hydrocodone that she is using for breakthrough pain, there is some confusion regarding how much she has been using for breakthrough pain, and agreement and her daughter monitoring this more carefully. Unfortunately as a result of her hospitalization and illness, she had to have her stent placement deferred until next week, as well as her weekly chemotherapy and radiation. This emotionally is somewhat overwhelming to her in the context that her goal is to just "get through this period of time". She does vap almost continously, so found withdrawal at the hospital adding to her anxiety. Social History - Living Situation Living arrangement: At home Living Situation: With family (lives with daughters family, set up in living room with equipment and hospital bed, Dana oversees her care) Medications/Allergies - Medications Home Medications: Ambulatory Orders Medication Instructions Recorded Confirmed Fluticasone/Vilanterol [Breo 1 puffs INH DAILY 06/24/16 09/29/17 Ellipta 200-25 Mcg INH] Cranberry Fruit Extract [Cranberry] 2 tab PO TID 08/14/17 09/29/17 Escitalopram Oxalate 20 mg PO DAILY 08/14/17 09/29/17 HYDROcod/ACETAM 5/325 [[place] 5/325] 1 - 2 ea PO Q4HR PRN MDD 10 tabs 08/14/17 Ondansetron [Ondansetron Odt] 8 mg PO Q8HR PRN 08/14/17 09/29/17 Polyethylene Glycol 3350 [Miralax] 17 gm PO BID 08/14/17 09/29/17 Sennosides [Senna] 3 tab PO BID 08/14/17 09/29/17 Albuterol Sulf [Ventolin Hfa 2 puffs INH Q4HR PRN 09/16/17 09/29/17 Inhaler] Budesonide/Formoterol Fumarate 2 puffs INH BID 09/16/17 09/29/17 [Symbicort 160-4.5 Mcg Inhaler] Dexamethasone 2 mg PO .ON HOLD 09/16/17 09/29/17 fentaNYL [Fentanyl 25mcg patch] 25 mcg TOP DAILY 09/16/17 09/29/17 LORazepam [Ativan] 0.25 - 0.5 mg PO Q6HR PRN 09/23/17 09/29/17 Lactobacillus Acidophilus 1 tab PO BID 09/23/17 09/29/17 [Probiotic Acidophilus] Oseltamivir [Tamiflu] 75 mg PO .DAILY FOR TWO DAYS 09/29/17 09/29/17 predniSONE [Deltasone] 40 mg PO .DAILY FOR 4 DAYS 09/29/17 09/29/17 - Allergies Allergies/Adverse Reactions: Allergies Allergy/AdvReac Type Severity Reaction Status Date / Time codeine Allergy Itching Verified 02/09/16 12:11 Review of Systems - Constitutional Constitutional: reports: Fatigue, Weakness, Poor appetite, Weight loss (151/ 9 pounds over last few weeks) - Eyes Eyes: reports: Vision loss, Corrective lenses - Ears, Nose & Throat Ears, Nose & Throat: reports: Hearing loss, Postnasal drainage, Other (has dentures) - Cardiovascular Cardiovascular: reports: Exertional dyspnea, Decr. exercise tolerance. denies: Chest pain - Respiratory Respiratory: reports: SOB with exertion. denies: Cough - Gastrointestinal Gastrointestinal: reports: Nausea (takes daily ondasetron), Poor appetite, Other (c/o rectal burning and swelling). denies: Constipation, Reflux/heartburn - Genitourinary Genitourinary: reports: Incontinence (when having bowel movement passing small amount of urine), Other (has nephrostomy tube; unable to get stent with hospitalization) - Musculoskeletal Musculoskeletal: reports: Stiffness, Muscle weakness, Assistive devices (using walker for longer distances; no further falls this week) - Integumentary Integumentary: reports: Dryness - Neurological Neurological: reports: General weakness, Memory problems, Other (tremors/shaking ) - Psychiatric Psychiatric: reports: Anxiety - Endocrine Endocrine: reports: Intolerance to cold - Hematologic/Lymphatic Hematologic/Lymphatic: reports: Anemia (did receive blood transfusion in hospital) - All Other Systems All Other Systems: reports: Reviewed and negative Physical Exam - Vital Signs Temperature: 97.4 C Pulse Rate: 71 Respiratory Rate: 18 O2 Saturation: 96 (ra @ rest) Blood Pressure: 132/62 - Physical Exam General Appearance: positive: Mild distress, Anxious Eyes Bilateral: positive: Conjunctivae nml ENT: positive: No signs of dehydration. negative: Pharyngeal erythema, Oral lesions Neck: positive: No JVD, Trachea midline Cardiovascular: positive: Regular rate & rhythm Respiratory: positive: Diminished throughout, Wheezes (few scattered; had just taken neb treatment; continuing to vap) Abdomen: positive: Soft, Nml bowel sounds, Tenderness (right lower quadrant), Other (nephrostomy tube exit site intact) Skin: positive: Pallor, Other (rectal area reddened; external hemmorhoids) Extremities: positive: No pedal edema Neurologic/Psychiatric: positive: Oriented x3, Mood/affect nml, Weakness, Other (anxious) Palliative Care - POLST Patient has POLST: Yes POLST Status: DNR, Selective Treatment Pain: Pain unchanged, Location (Quadrant pain, deep in right groin. Currently using Duragesic 25 mcg, only needing intermittent [place] for breakthrough pain. Rectal pain and irritation most problematic when bowels move, reports that escalates pain to 10 out of 10.) Tiredness/Fatigue: Moderate (4-6) Drowsiness/Sedation: Moderate (4-6) ( Quite exhausted from recent hospitalization just feels like "needs to rest") Nausea: Mild (1-3) Depression: Mild (1-3) Anxiety: Severe (7-10) Dyspnea: Moderate (4-6) Anorexia: Moderate (4-6), Weight loss Sleep: Variable sleep pattern Constipation: Yes, Opoid induced, Managed Feelings of wellbeing/Perceived Quality of Life: Fair, Acceptable, Worsening Performance Status: Patient with a recent hospitalization, has mostly been bedbound, she does transfer the chair. She is able to ambulate to the bathroom and toilet independently, though does need some oversight and assistance after bathing for dressing. Her daughter does provide meal prep and support for IADLs as well as transportation. I would put her at a PPS today of 50% - Palliative Care Discussion: Patient presents today as quite anxious, in describing her recent hospitalizations it is almost like a "PTSD "experience for her. She reports she just tends to sleep fair, finds it very difficult to continue to have all these complications, she is feeling somewhat overwhelmed. She is anxious to get on with her treatment and particularly get her nephrostomy tube dealt with. It is considerably stressful for the daughter, she has her own family she is trying to balance, to manage her mother's ongoing and complicated needs. Patient with severe short-term memory issues and often causes quite a bit of distress for both of them as far as her ability to remember as well as her impulsivity Impression and Recommendations - Palliative Care Impression: This is a rosa m anxious 66-year-old woman with stage Zeke squamous cell cervical cancer involving the lower uterine segment/cervix and invasion of the bladder wall. She continues to have left ureteral obstruction currently with nephrostomy tube. She is unfortunately had yet another hospitalization for influenza a/B as well as exacerbation of her COPD. She remains at high risk for recurrent sepsis and infection as she is both had recurrent hospitalizations and concern about possible fistula formation. She continues to present with high symptom burden, high psychosocial needs, will benefit from ongoing palliative care support Recommendations/Counseling Done: 1. COPD exacerbation. Patient does have L sputum well, she did feel better after recent treatment. Discussed scheduling nebulizers 3 times a day for the next 2-3 days to address moving her secretions. She is currently on prednisone , instructed on holding Decadron during this time. 2. Pain of neoplastic origin. She is currently on fentanyl 25 mcg patch, continues to be somewhat disjointed in reporting breakthrough pain medication use. Nuprin prescription are provided for hydrocodone 5 mg/325 mg. Did request daughter only give her 6 at a time, and to be able to document use. Counseling regarding need to understand how much breakthrough pain medication use as needed before titrating up patch. Currently it does appear that it is most likely adequate for managing her current regimen. 3. Weight loss. This again is multifactorial in origin, including early satiety, taste changes, and anorexia. On they are using smoothies, and sure, and intermittent ondansetron to manage her nausea. Have received counseling regarding this and reinforced. 4. Constipation. Patient is having some rectal irritation, and external hemorrhoids. Reviewed need to keep bowel movements soft and frequent. Did instruct to obtain R barrier cream to use regarding her discomfort and to aid in healing, suspect some of this is radiation-induced. 5. Anxiety disorder. She is continuing on her Lexapro 20 mg every morning, she does have Lorazepam as needed for breakthrough anxiety. I suspect the steroids and albuterol are adding to her distress, she continues to have a fairly consistently, counseling for using some cognitive behavioral techniques and deep breathing with patient to resent to herself. Will titrate down off Decadron after finishes this exacerbation of her COPD. 6. Recurrent UTIs. The patient currently not on any antibiotics, she does have nephrostomy tube, goal is to have this changed out next week. We will continue to monitor, she may need to be on prophylactic antibiotics. 6. Advanced care planning. [facility] in place, as somewhat hectic has returned recently from hospital. Will continue to work on goals of care and establishing long-term plan and support for patient and family pending medical palliative care socially responsible investment adviser in process Time Spent: 45 minutes with greater than 50% of this done in counseling coordination of care regarding med reconciliation from hospital, counseling regarding pain medication and safety management, management of constipation, and anticipatory guidance
== END 2017-09-29 10:01 | disposition home or self-care (01) ==
LOC: PC 10:00
PROVIDERS: ATTEND Nurse Practitioner Adult Health
DX: Z51.5 Encounter for palliative care (principal); J44.1 Chronic obstructive pulmonary disease with (acute) exacerbation; G89.3 Neoplasm related pain (acute) (chronic); C53.9 Malignant neoplasm of cervix uteri, unspecified; R63.4 Abnormal weight loss; K59.03 Drug induced constipation; T40.2X5D Adverse effect of other opioids, subsequent encounter; F41.9 Anxiety disorder, unspecified; Z87.440 Personal history of urinary (tract) infections; Z93.6 Other artificial openings of urinary tract status; Z79.899 Other long term (current) drug therapy; Z92.3 Personal history of irradiation; R63.0 Anorexia; Z79.891 Long term (current) use of opiate analgesic; Z79.51 Long term (current) use of inhaled steroids; Z79.52 Long term (current) use of systemic steroids; R11.0 Nausea; M62.81 Muscle weakness (generalized); Z66 Do not resuscitate
CPT/HCPCS: 99349

== ENCOUNTER 2017-10-09 13:29 | Outpatient (CLI) | payer MEDICARE, MEDICAID ==
--- NOTE | 2017-10-09 14:07 | CONSULTATION NOTE ---
Palliative Care Follow Up - Referral Referring Provider: Laurel HYDE Time of Visit: Referral setting: Home (Patient is seen her home setting secondary considerable and taxing effort to leave the home as well as to evaluate treatment care plan.) Referral Reason: Met Cervical Cancer/Pain of neoplastic origin/pneumonia - Information Sources Records reviewed: Previous records reviewed History/Review of Systems obtained from: Patient, Family (Dana - daughter present for visit) Exam limitations: No limitations - History of Present Illness Update Brief HPI Update: This is a rosa m anxious 66-year-old woman who continues to have a complex course regarding treatment for her 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 She also has a left ureteral obstruction and an external nephrostomy tube. She has had multiple courses of hospitalization, most recently was in the emergency room on 10/06 with progressive symptoms of her COPD, resulting in a diagnosis of pneumonia, as well as dehydration. She was worked up for PE, at this point in time though her diameter was increased it was negative. She reports she has been doing much better, she still has some tightness and wheezing and cough but improved overall. Her right groin pain is controlled on her fentanyl 25 mcg patch she has only needed to use 7 tabs of hydrocodone over almost 2 weeks. Her pain is located deep in her right groin, it is exacerbated with bowel movements, but for the most part overall is improving. She did have her stent deferred again until next Monday, the hope is been to have it replaced on Monday. I am she was put on Augmentin and azithromycin for her diagnosis, in the context of the workup that was actually mentioned it might be aspiration pneumonia. Social History - Living Situation Living arrangement: At home Living Situation: With family (Patient lives with her daughter Dana, she tries to be as independent as possible, but does need personal assist with her care needs as well as oversight for her medication and appointments.) Medications/Allergies - Medications Home Medications: Ambulatory Orders Medication Instructions Recorded Confirmed Fluticasone/Vilanterol [Breo 1 puffs INH DAILY 06/24/16 10/09/17 Ellipta 200-25 Mcg INH] Cranberry Fruit Extract [Cranberry] 2 tab PO TID 08/14/17 10/09/17 Escitalopram Oxalate 20 mg PO DAILY 08/14/17 10/09/17 HYDROcod/ACETAM 5/325 [[place] 5/325] 1 - 2 ea PO Q4HR PRN MDD 10 tabs 08/14/17 Ondansetron [Ondansetron Odt] 8 mg PO Q8HR PRN 08/14/17 10/09/17 Polyethylene Glycol 3350 [Miralax] 17 gm PO BID 08/14/17 10/09/17 Sennosides [Senna] 3 tab PO BID 08/14/17 10/09/17 Albuterol Sulf [Ventolin Hfa 2 puffs INH Q4HR PRN 09/16/17 10/09/17 Inhaler] Budesonide/Formoterol Fumarate 2 puffs INH BID 09/16/17 10/09/17 [Symbicort 160-4.5 Mcg Inhaler] Dexamethasone 1 mg PO .FOR 2 DAYS 09/16/17 10/09/17 fentaNYL [Fentanyl 25mcg patch] 25 mcg TOP DAILY 09/16/17 10/09/17 LORazepam [Ativan] 0.25 - 0.5 mg PO Q6HR PRN 09/23/17 10/09/17 Lactobacillus Acidophilus 1 tab PO BID 09/23/17 10/09/17 [Probiotic Acidophilus] Amox/Clav 875/125 [Augmentin 1 tab PO .BID 4 DAYS 10/09/17 10/09/17 875/125] Azithromycin 250 mg PO .DAILY 2 DAYS 10/09/17 10/09/17 - Allergies Allergies/Adverse Reactions: Allergies Allergy/AdvReac Type Severity Reaction Status Date / Time codeine Allergy Itching Verified 02/09/16 12:11 Review of Systems - Constitutional Constitutional: reports: Fatigue, Weakness, Poor appetite, Weight loss - Eyes Eyes: reports: Vision loss, Corrective lenses - Ears, Nose & Throat Ears, Nose & Throat: reports: Other (edentulous). denies: Mouth lesions - Cardiovascular Cardiovascular: reports: Lightheadedness, Decr. exercise tolerance - Respiratory Respiratory: reports: Cough, Sputum production (light yellow), SOB with exertion - Gastrointestinal Gastrointestinal: reports: Nausea (fairly severe every AM for several months; using ondansetron daily), Early satiety. denies: Constipation, Diarrhea, Reflux /heartburn - Genitourinary Genitourinary: reports: Other (has nephrostomy tube; occasional goes through urethra) - Musculoskeletal Musculoskeletal: reports: Stiffness, Muscle weakness, Assistive devices (uses walker for balance) - Integumentary Integumentary: reports: Dryness - Neurological Neurological: reports: General weakness, Memory problems (intermittent; worsened on Monday suspect dehydration;), Incoordination - Psychiatric Psychiatric: reports: Depression, Anxiety - Hematologic/Lymphatic Hematologic/Lymphatic: reports: Anemia, Recurrent infections (UTI/now pneumonia ; resent influenza B) - All Other Systems All Other Systems: reports: Reviewed and negative Physical Exam - Vital Signs Temperature: 97.5 C Pulse Rate: 78 Respiratory Rate: 18 O2 Saturation: 95 (ra @ rest) Blood Pressure: 112/72 - Physical Exam General Appearance: positive: No acute distress, Anxious Eyes Bilateral: positive: Normal inspection, No scleral icterus ENT: negative: Pharyngeal erythema Neck: positive: No JVD, Trachea midline Cardiovascular: positive: Regular rate & rhythm Respiratory: positive: Diminished in bases, Rales (crackles left lower lobe) Abdomen: positive: Soft, Nml bowel sounds Skin: positive: Pallor, Other (exit site of nephrostomy tube without leakage or s/s infection) Extremities: positive: No pedal edema Neurologic/Psychiatric: positive: Oriented x3, Mood/affect nml, Weakness Palliative Care - POLST Patient has POLST: Yes POLST Status: DNR, Selective Treatment Pain: Pain improved (worse in am; addressed with ondansetron), Location (right groin area; 0/10) Tiredness/Fatigue: Moderate (4-6) Drowsiness/Sedation: None Nausea: Moderate (4-6) Depression: Moderate (4-6) Anxiety: Severe (7-10) (reports improved though; less tremors noted in conversation;) Dyspnea: Moderate (4-6) (using neb still bID) Anorexia: Moderate (4-6) Sleep: Variable sleep pattern Constipation: Yes, Opoid induced, Managed Feelings of wellbeing/Perceived Quality of Life: Fair, Acceptable Performance Status: Daughter does assist with bathing, meal prep, and oversight for transfers. Patient is ambulating for longer distance with walker, "furniture walks" for shorter distances. She is quite unsteady and dizzy when she is up, suspect she is continuing to struggle with dehydration. She did get a couple units of blood prior hospitalization, with some improvement. - Palliative Care Discussion: Patient short-term goal is to finish with radiation/chemo. Her radiation is time-limited suspect it got extended because of her hospitalizations/illnesses. She was originally scheduled to finish 10/20. We discussed the normal course of illness, is then to have a reevaluation as far as follow-up where her current tumor burden is, as well as ongoing monitoring long-term. Patient does have underlying anxiety, we did discuss the goals would certainly be to focus on getting back to "a new normal". Patient does struggle with multiple financial and psychosocial stressors. I did encourage daughter Dana, to follow-up with [facility] at the [facility] as far as becoming patients shannan worker Impression and Recommendations - Palliative Care Impression: This is a rosa m anxious 66-year-old woman with stage Zeke squamous cell cervical cancer involving the lower uterine segment/cervix and invasion of bladder wall. She has not had her nephrostomy tube on the left replaced yet she does have a left ureteral obstruction. She is hoping this is to be addressed this week. She has recently had influenza A/B as well as exacerbation of her COPD, and this last Monday was diagnosed with dehydration and pneumonia. She is currently on antibiotics, is responding well and feeling much better. She continues to present with high symptom burden, high psychosocial needs related to anxiety and depression, will continue to benefit from palliative care support. Recommendations/Counseling Done: 1. Dehydration. Patient's urine and her nephrostomy bag is slightly darkened. We did discuss the goal would be to have had a light yellow. She has been trying to figure out "how much to drink". We did discuss as far as counseling strategies to improve her fluid intake as she does get behind and symptomatic. 2. Pain of neoplastic origin she is currently on fentanyl 25 mcg patch, not needing much for breakthrough pain. Does feel it is much improved over the morphine as well as decreased nausea with this. We will continue to monitor, with tumor shrinkage, may be able to titrate back. 3. Weight loss. Again this is multifactorial in origin. She has finished her prednisone, and has restarted her Decadron. Dr. Srinivasan did prescribe Megace, I am somewhat concerned because of her clot risk, did instruct them though to decrease the dexamethasone to 1 mg for 2 days, then discontinue and start the Megace at that point in time. Can weigh the benefits and burdens of which might be more effective for them, I did tell them it takes at least 7 days before rule out is not working. Patient's appetite though has improved I suspect this is to do with her infections have been treated, again encouraged use of Ensure. 4. Constipation. Patient reports having regular soft bowel movements. 5. Recurrent UTIs. Patient is currently on antibiotics, she does have nephrostomy tube, the goal is have this changed out next week. She is on antibiotics actually for her pneumonia, though these would adjust any concerns for UTI though her urine was negative on Monday. 6. Advanced care planning. [facility]FE[address] in place, will continue to work on goals of care, and exception long-term plan and support pending medical palliative care social science instructor referral in process. Time Spent: 45 minutes with greater than 50% of this done in counseling regarding symptom management, anticipatory guidance, and psychosocial support as well as coordination of care and follow-up regarding shannan
== END 2017-10-09 13:30 | disposition home or self-care (01) ==
LOC: PC 13:29
PROVIDERS: ATTEND Nurse Practitioner Adult Health
DX: Z51.5 Encounter for palliative care (principal); E86.0 Dehydration; G89.3 Neoplasm related pain (acute) (chronic); C53.9 Malignant neoplasm of cervix uteri, unspecified; R63.4 Abnormal weight loss; N39.0 Urinary tract infection, site not specified; Z93.6 Other artificial openings of urinary tract status; J44.9 Chronic obstructive pulmonary disease, unspecified; Z79.891 Long term (current) use of opiate analgesic; Z79.51 Long term (current) use of inhaled steroids; R11.0 Nausea; M62.81 Muscle weakness (generalized); F32.9 Major depressive disorder, single episode, unspecified; F41.9 Anxiety disorder, unspecified; R06.00 Dyspnea, unspecified; K59.03 Drug induced constipation; T40.2X5D Adverse effect of other opioids, subsequent encounter; Z66 Do not resuscitate
CPT/HCPCS: 99349

== ENCOUNTER 2017-10-20 14:17 | Outpatient (CLI) | payer MEDICARE, MEDICAID ==
--- NOTE | 2017-10-20 14:21 | CONSULTATION NOTE ---
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 She also had a left ureteral obstruction, with an external nephrostomy tube, she did have this replaced this last week. She has not been voiding as frequently, she reports the urine is slightly dark, it does not appear she has been drinking enough fluids. She has received her last chemotherapy, and she is due for her last radiation this next Monday. She will then have her follow-up scans after that no date is been set. Unfortunately this week, she was unable to fill her fentanyl 25 mcg patch and this ran out on Monday, she was instructed to use short acting hydrocodone, but this made her too dizzy and did not tolerate it well as far as her 2 tabs every 4-6 hours. She received another prescription for a buprenorphine patch, but those are not available either. In the meantime patient's pain has escalated in the right groin, with sharp shooting, as well as she is describing symptoms of withdrawal with diarrhea, watery eyes, increased nausea, and tremulousness. She still has some tightness and shortness of breath, this is responding to her DuoNeb, her cough though productive is clear. Social History - Living Situation Living arrangement: At home Living Situation: With family (She lives with her daughter Dana, there has been some increased stress in the home, patient does get quite anxious regarding this.) Medications/Allergies - Medications Home Medications: Ambulatory Orders Medication Instructions Recorded Confirmed Fluticasone/Vilanterol [Breo 1 puffs INH DAILY 06/24/16 10/20/17 Ellipta 200-25 Mcg INH] Cranberry Fruit Extract [Cranberry] 2 tab PO TID 08/14/17 10/20/17 Escitalopram Oxalate 20 mg PO DAILY 08/14/17 10/20/17 HYDROcod/ACETAM 5/325 [[place] 5/325] 1 - 2 ea PO Q4HR PRN MDD 10 tabs 08/14/17 Ondansetron [Ondansetron Odt] 8 mg PO Q8HR PRN 08/14/17 10/20/17 Polyethylene Glycol 3350 [Miralax] 17 gm PO BID 08/14/17 10/20/17 Sennosides [Senna] 3 tab PO BID 08/14/17 10/23/17 Albuterol Sulf [Ventolin Hfa 2 puffs INH Q4HR PRN 09/16/17 10/20/17 Inhaler] Budesonide/Formoterol Fumarate 2 puffs INH BID 09/16/17 10/20/17 [Symbicort 160-4.5 Mcg Inhaler] fentaNYL [Fentanyl 25mcg patch] 25 mcg TOP DAILY 09/16/17 10/20/17 LORazepam [Ativan] 0.25 - 0.5 mg PO Q6HR PRN 09/23/17 10/20/17 Lactobacillus Acidophilus 1 tab PO BID 09/23/17 10/20/17 [Probiotic Acidophilus] - Allergies Allergies/Adverse Reactions: Allergies Allergy/AdvReac Type Severity Reaction Status Date / Time codeine Allergy Itching Verified 02/09/16 12:11 Review of Systems - Constitutional Constitutional: reports: Fatigue, Poor appetite, Weight loss - Eyes Eyes: reports: Vision loss, Corrective lenses - Ears, Nose & Throat Ears, Nose & Throat: reports: Nasal congestion, Dry mouth - Cardiovascular Cardiovascular: reports: Lightheadedness, Exertional dyspnea, Decr. exercise tolerance - Respiratory Respiratory: reports: Cough (clear; decreased from last week), SOB with exertion - Gastrointestinal Gastrointestinal: reports: Diarrhea (over last several days; suspect more likely withdrawel than SE of treatment as has not had before), Nausea, Poor appetite, Early satiety - Genitourinary Genitourinary: reports: Urgency, Other (nephrostomy tube replace with stent;) - Musculoskeletal Musculoskeletal: reports: Stiffness, Muscle weakness, Assistive devices (uses walker when not in home) - Integumentary Integumentary: reports: Dryness - Neurological Neurological: reports: General weakness, Headache, Memory problems - Psychiatric Psychiatric: reports: Depression, Anxiety - Hematologic/Lymphatic Hematologic/Lymphatic: reports: Anemia, Recurrent infections (both pneumonia/ utis/urosepsis history) - All Other Systems All Other Systems: reports: Reviewed and negative Physical Exam - Vital Signs Temperature: 97.8 C Pulse Rate: 105 Respiratory Rate: 18 O2 Saturation: 98 (ra @ rest) Blood Pressure: 110/52 - Physical Exam General Appearance: positive: Mild distress, Anxious Eyes Bilateral: positive: Normal inspection ENT: negative: Oral lesions Neck: positive: No JVD, Trachea midline Cardiovascular: positive: Tachycardia Respiratory: positive: Diminished throughout. negative: Wheezes, Rales, Rhonchi Abdomen: positive: Soft, Tenderness, Guarding, Other (concern regarding decreased urinary output; not able to palpate any bladder distension) Skin: positive: Pallor, Dryness, Other (well healed neph. exit site) Extremities: positive: No pedal edema Neurologic/Psychiatric: positive: Oriented x3, Weakness, Depressed mood/affect Palliative Care - POLST Patient has POLST: Yes POLST Status: DNR, Selective Treatment Pain: Pain worsening, Location (right groin area; had been improving prior to stopping Fentanyl Patch; has only been using about 3 hydrocodone a day last few days;) Tiredness/Fatigue: Moderate (4-6) Drowsiness/Sedation: None Nausea: Moderate (4-6) Depression: Moderate (4-6) Anxiety: Severe (7-10) Dyspnea: Moderate (4-6) Anorexia: Moderate (4-6) Sleep: Variable sleep pattern Constipation: Comment (new diarrhea; previously on bowel program with good results) Feelings of wellbeing/Perceived Quality of Life: Poor, Worsening, Comment (this is related to poor pain control;) Performance Status: Patient quite frail, she is able to ambulate though her balance is poor in the house. She does use a walker outside. Her daughter does assist her with bathing.I would put her at a PPS of 60% - Palliative Care Discussion: Patient quite discouraged, and has she been doing so well, with her fentanyl 25 mcg patch and improvement in her pain as well as her energy. She does appear dehydrated today, as well as experiencing symptoms of withdrawal. We did discuss this in the context of moving forward. Patient does struggle with multiple financial and psychosocial stressors, the medical palliative care social services counselor will be following up with her next week. Results - Lab Results Lab results reviewed: Yes Impression and Recommendations - Palliative Care Impression: This is a 66-year-old woman with stage IV squamous cell cervical carcinoma involving the lower uterine/cervix and invasion of the bladder wall. She recently had influenza A/B as well as exacerbation of her COPD this does appear to be improving. Today though she presents with symptoms again of dehydration, and unfortunately opioid withdrawal. She is discouraged, and her anxiety has exacerbated, continue to provide palliative care support. Recommendations/Counseling Done: 1. Dehydration. Patient reports her urine is dark, she gets discouraged that she is not feeling well now she has diarrhea, she has been concentrating on water which does not taste good. We did discuss that it can be any fluids, she was able to identify fluids that she would more likely be able to comply with. He also discussed in the context of her weight loss that this would be preferable overall. 2. Pain of neoplastic origin. I did call around to different pharmacies, it is only 1 brand that is not available, and fortunately it is on the supplier issue to the current pharmacy. [facility] did have 2 boxes per their report, daughter will try and get them from there, discussed this is important that she have these replaced as she is experiencing withdrawal and it was also quite effective. In the meantime told the patient to take her hydrocodone more frequently, if the 2 tabs are too much to take it 1 tab every 3-4 hours to at least try and get 6-8 tabs as this would be near the equivalent that she was on. 3. Opioid withdrawal. Patient went from an equivalent of about 10 hydrocodone to taking 3 hydrocodone in 24 hours. Counseling regarding patient's symptoms, though not life-threatening can certainly make one feel poorly. Also encouraged to use the Imodium more aggressively. 4. Recurrent UTIs. Patient now with ureteral stent versus nephrostomy tube, Again reviewed need to push fluids, concern patient remains at high risk for recurrent infection. 5. Advanced care planning. [facility]FE[address] in place, will continue to work on goals of care as well as long-term plan. Time Spent: 45 minutes with greater than 50% of this done in counseling regarding opioid education, symptom management, and dehydration as well as coordination of care and obtaining opioid prescription. Plan to call midweek next week to set next appointment depending on outcome of last appointments.
== END 2017-10-20 14:18 | disposition home or self-care (01) ==
LOC: PC 14:17
PROVIDERS: ATTEND Nurse Practitioner Adult Health
DX: Z51.5 Encounter for palliative care (principal); E86.0 Dehydration; G89.3 Neoplasm related pain (acute) (chronic); C53.9 Malignant neoplasm of cervix uteri, unspecified; C79.89 Secondary malignant neoplasm of other specified sites; J44.9 Chronic obstructive pulmonary disease, unspecified; F11.23 Opioid dependence with withdrawal; N39.0 Urinary tract infection, site not specified; N13.5 Crossing vessel and stricture of ureter without hydronephrosis; Z93.6 Other artificial openings of urinary tract status; Z79.899 Other long term (current) drug therapy; R19.7 Diarrhea, unspecified; Z79.891 Long term (current) use of opiate analgesic; M62.81 Muscle weakness (generalized); R11.0 Nausea; F32.9 Major depressive disorder, single episode, unspecified; F41.9 Anxiety disorder, unspecified; R63.0 Anorexia; Z66 Do not resuscitate
CPT/HCPCS: 99349

== ENCOUNTER 2017-11-03 13:55 | Outpatient (CLI) | payer MEDICARE, MEDICAID ==
--- NOTE | 2017-11-03 13:57 | CONSULTATION NOTE ---
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 She also had a left ureteral obstruction with now a stent in place. She has completed her chemotherapy, and is due for her last radiation therapy treatment today. She does have some increased symptoms of cystitis, rectal discomfort, and diarrhea. These are as a sequela most likely of her radiation. She is able to manage her diarrhea with intermittent loperamide use. She has had some increase in pain, she is needing an additional hydrocodone 3 or 4 times a day above her baseline fentanyl 25 mcg patch. Is mostly pinpoint and located over where the concentration of her radiation is. She did get good news her MRI did show positive response to her treatment, and she is due for follow-up in January. She did report an episode of cloudy urine last week, has not had progressive symptoms, though she was put on terzonazole vaginal cream, though she is having no symptoms. She presents as quite elated to be finishing her treatment, she is still having a fairly high degree of pain and discomfort, residual fatigue, her anxiety continues to fluctuate. She has had an improvement in her anorexia she has gained weight up to 157. Her appetite is good. She is still needing ondansetron about once a day for nausea. She is looking forward to the next few weeks as far as getting back to "a new normal". Social History - Living Situation Living arrangement: At home Living Situation: With family (She lives with her daughter and her family, she is very much wanting not to put any further stress on her daughter. Is looking forward to having less doctor's appointments and being able to feel better so she can provide support in the home.) Medications/Allergies - Medications Home Medications: Ambulatory Orders Medication Instructions Recorded Confirmed Fluticasone/Vilanterol [Breo 1 puffs INH DAILY 06/24/16 11/03/17 Ellipta 200-25 Mcg INH] Escitalopram Oxalate 20 mg PO DAILY 08/14/17 11/03/17 HYDROcod/ACETAM 5/325 [[place] 5/325] 1 - 2 ea PO Q4HR PRN MDD 10 tabs 08/14/17 Ondansetron [Ondansetron Odt] 8 mg PO Q8HR PRN 08/14/17 11/03/17 Polyethylene Glycol 3350 [Miralax] 17 gm PO BID PRN 08/14/17 11/03/17 Sennosides [Senna] 3 tab PO BID PRN 08/14/17 11/03/17 Albuterol Sulf [Ventolin Hfa 2 puffs INH Q4HR PRN 09/16/17 11/03/17 Inhaler] Budesonide/Formoterol Fumarate 2 puffs INH BID 09/16/17 11/03/17 [Symbicort 160-4.5 Mcg Inhaler] fentaNYL [Fentanyl 25mcg patch] 25 mcg TOP DAILY 09/16/17 11/03/17 LORazepam [Ativan] 0.25 - 0.5 mg PO Q6HR PRN 09/23/17 11/03/17 Ipratropium/Albuterol [Duoneb] 1 inh INH Q6HR PRN 11/03/17 11/03/17 Loperamide [Imodium] 2 mg PO Q4HR PRN 11/03/17 11/03/17 - Allergies Allergies/Adverse Reactions: Allergies Allergy/AdvReac Type Severity Reaction Status Date / Time codeine Allergy Itching Verified 02/09/16 12:11 Review of Systems - Constitutional Constitutional: reports: Fatigue, Weakness, Weight gain. denies: Fever, Chills - Eyes Eyes: reports: Vision loss, Corrective lenses - Ears, Nose & Throat Ears, Nose & Throat: reports: Dry mouth - Cardiovascular Cardiovascular: reports: Lightheadedness, Exertional dyspnea, Decr. 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 denies: Suicidal - Endocrine Endocrine: denies: Diabetes type 2, Hypothyroidism - Hematologic/Lymphatic Hematologic/Lymphatic: reports: Anemia, Recurrent infections (utis) - All Other Systems All Other Systems: reports: Reviewed and negative Physical Exam - Vital Signs Temperature: 97.2 C Pulse Rate: 88 Respiratory Rate: 18 O2 Saturation: 96 Blood Pressure: 142/82 - Physical Exam General Appearance: positive: No acute distress, Anxious Eyes Bilateral: positive: Normal inspection ENT: positive: No signs of dehydration Neck: positive: No JVD, Trachea midline Cardiovascular: positive: Regular rate & rhythm Respiratory: positive: Diminished throughout, Wheezes (exp wheeze left lower lobe) Abdomen: positive: Soft, Nml bowel sounds, Tenderness (right lower quadrant) Skin: positive: Pallor, Dryness Extremities: positive: No pedal edema Neurologic/Psychiatric: positive: Oriented x3, Mood/affect nml Palliative Care - POLST Patient has POLST: Yes POLST Status: DNR Pain: Pain worsening, Location (Right lower quadrant, worsens with bowel movements. Sharp shooting, is relieved with hydrocodone intermittently. She is on baseline fentanyl 25 mcg patch. She does have chronic underlying back pain at baseline.) Tiredness/Fatigue: Severe (7-10) Drowsiness/Sedation: Mild (1-3) Nausea: Mild (1-3) Depression: Mild (1-3) Anxiety: Moderate (4-6) Dyspnea: Mild (1-3) Anorexia: None Sleep: Sleeps well Constipation: No Feelings of wellbeing/Perceived Quality of Life: Fair, Improved Performance Status: Patient is better able to shower without having PICC line and nephrostomy tube. She still has very poor activity tolerance. But is able to ambulate short distances. She is still using a walker when she goes out for balance. - Palliative Care Discussion: Counseling regarding patient's current state of mind, she is much encouraged she is done with treatment. She does at baseline have generalized anxiety disorder, we did discuss and approached it from a cognitive behavioral therapy intervention, as reframing, focusing on the moment, and setting short-term goals. She does understand the seriousness of her illness, but is hoping for some reprieve. We did discuss long-term support, she did benefit from her counseling with the delinquency prevention social worker, will continue to provide that support to our team. 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 She has had a positive response to her chemoradiation, and is to complete that test today. She still continues with fairly high symptom burden. This most likely currently is the sequela of her treatment side effects from radiation. Will continue to provide palliative care support for symptom management and adjustment to illness. Palliative care to provide ongoing support and adjust treatment plan as indicated regarding disease process. Recommendations/Counseling Done: 1. Pain of neoplastic origin. Did manage to find fentanyl patches last visit, patient's opioid withdrawal symptoms resolved. She still has significant right lower quadrant pain, suspect this is a side effect regarding her radiation. We will continue to follow she most likely will have some sequela and chronic pain regarding her cancer and cancer treatment. Did reassure patient we would titrate appropriately, she is already experienced some significant side effects from withdrawal symptom in the context the patches were not available. 2. Recurrent UTIs. Patient is not presenting with any symptoms currently, though she does remain quite concerned. We did review again her best approach would be to push fluids. I did leave her a specimen cup and lab slip if patient has recurrent symptoms. 3. Generalized anxiety disorder. She is currently on her escitalopram, she does feel this is working adequately for her. She does notice difference when she does not take it. She would like to continue with palliative care delinquency prevention social worker as well. 4. Fatigue, this is multifactorial in origin. We did discuss in the context of her current trajectory. Recommended progressive ambulation, she does have a home exercise program from her time with physical therapy at home. She is going to introduce and initiate this as her energy allows. Did offer outpatient prescription for therapy if she felt she needed more support. Time Spent: 45 minutes with greater than 50% of this done in counseling regarding symptom management and anticipatory guidance.
== END 2017-11-03 13:56 | disposition home or self-care (01) ==
LOC: PC 13:55
PROVIDERS: ATTEND Nurse Practitioner Adult Health
DX: Z51.5 Encounter for palliative care (principal); G89.3 Neoplasm related pain (acute) (chronic); C53.9 Malignant neoplasm of cervix uteri, unspecified; N32.9 Bladder disorder, unspecified; N39.0 Urinary tract infection, site not specified; F41.1 Generalized anxiety disorder; R53.83 Other fatigue; Z96.0 Presence of urogenital implants; R19.7 Diarrhea, unspecified; R11.0 Nausea; Z79.891 Long term (current) use of opiate analgesic; M62.81 Muscle weakness (generalized); F32.9 Major depressive disorder, single episode, unspecified; Z66 Do not resuscitate
CPT/HCPCS: 99349

== ENCOUNTER 2017-11-06 09:30 | Outpatient (CLI) | payer MEDICARE, MEDICAID ==
[2017-11-06 18:58] LABS: BILIRUBIN,URINE NEGATIVE (NEGATIVE); GLUCOSE, URINE (UA) NEGATIVE (NEGATIVE); KETONES,URINE (UA) NEGATIVE (NEGATIVE); LEUKOCYTE ESTERASE, URINE SMALL (NEGATIVE); NITRITE,URINE NEGATIVE (NEGATIVE); OCCULT BLOOD,URINE LARGE (NEGATIVE); PH,URINE 5.5 PH (5.0-7.5); PROTEIN,URINE 100 mg/dL (NEGATIVE); UROBILINOGEN,URINE 0.2 (NORMAL) E.U./dL (NORMAL)
[2017-11-06 19:10] LABS: CLARITY,URINE SL. CLOUDY (CLEAR)
[2017-11-06 19:11] LABS: BACTERIA,URINE Few /HPF (None Seen); RBC,URINE TNTC /HPF (0-5); SQUAMOUS EPITHELIAL CELL,UR RARE Squamous (<= Few); YEAST,URINE PRESENT
== END 2017-11-06 09:31 | disposition home or self-care (01) ==
LOC: LAB.N 09:30
PROVIDERS: ATTEND Nurse Practitioner Adult Health
DX: N32.9 Bladder disorder, unspecified (principal); N39.0 Urinary tract infection, site not specified
CPT/HCPCS: 81001; 81003; 87086

== ENCOUNTER 2017-11-10 12:20 | Emergency (ER) | payer MEDICARE, MEDICAID ==
--- NOTE | 2017-11-10 12:41 | ED Physician Documentation ---
History of Present Illness - Stated complaint Stated Complaint: FEMALE /DIZZY - Chief complaint Chief Complaint: Abd Pain - History obtained from History obtained from: Patient, Family - History of Present Illness Timing: Chronic Pain level max: 7 Pain level now: 7 Improved by: vicodin, fentanyl Worsened by: movement, palpation. - Additonal information Additional information: Patient is a 66-year-old female who presents to the emergency department with concern regarding her bladder. She has recently undergone chemotherapy and radiation for stage IV cervical cancer that has invaded the bladder wall. Has had multiple recurrent UTIs and yeast infections. Is currently being treated for a UTI and a yeast infection. She was seen by Sarah Manrique from palliative care today and sent in for a "bladder scan". She receives most of her care at [facility]. States feels dizzy and lighteaded when standing. Has chronic abd pain. Lower abdomen and back. Takes vicodin and fentanyl at home for this. She is on keflex and diflucan. Stopped her steroids and ondansetron when she started on diflucan on monday. States still not feeling well today. No fevers. States daily smoker and is still smoking. Last radiation/chemo was 1 week ago. Review of Systems Ten Systems: 10 systems reviewed and negative Constitutional: denies: Fever, Chills Ears: denies: Ear pain Nose: denies: Rhinorrhea / runny nose, Congestion Throat: denies: Sore throat Cardiac: denies: Chest pain / pressure Respiratory: reports: Dyspnea (chronic) GI: denies: Nausea, Vomiting, Diarrhea : reports: Dysuria, Frequency, Hesitancy Skin: denies: Rash Musculoskeletal: denies: Neck pain, Back pain Neurologic: denies: Headache PD PAST MEDICAL HISTORY - Past Medical History Past Medical History: Yes Cardiovascular: High cholesterol Respiratory: COPD, Emphysema, Shortness of breath Neuro: Fainting, Other Endocrine/Autoimmune: None GI: GERD, Chronic constipation, Diverticulitis, Other CHANGE ADVISOR: Other : Incontinence, Other HEENT: Other Psych: Depression, Anxiety, Panic attacks Musculoskeletal: None Derm: None - Past Surgical History Past Surgical History: Yes General: Bowel surgery, Colonoscopy Neuro: Other - Present Medications Home Medications: Ambulatory Orders Medication Instructions Recorded Confirmed Fluticasone/Vilanterol [Breo 1 puffs INH DAILY 06/24/16 11/10/17 Ellipta 200-25 Mcg INH] Escitalopram Oxalate 20 mg PO DAILY 08/14/17 11/10/17 HYDROcod/ACETAM 5/325 [[place] 5/325] 1 - 2 ea PO Q4HR PRN MDD 10 tabs 08/14/17 Ondansetron [Ondansetron Odt] 8 mg PO Q8HR PRN 08/14/17 11/10/17 Polyethylene Glycol 3350 [Miralax] 17 gm PO DAILY 08/14/17 11/10/17 Sennosides [Senna] 3 tab PO BID PRN 08/14/17 11/10/17 Albuterol Sulf [Ventolin Hfa 2 puffs INH Q4HR PRN 09/16/17 11/10/17 Inhaler] Budesonide/Formoterol Fumarate 2 puffs INH BID 09/16/17 11/10/17 [Symbicort 160-4.5 Mcg Inhaler] fentaNYL [Fentanyl 25mcg patch] 25 mcg TOP DAILY 09/16/17 11/10/17 LORazepam [Ativan] 0.25 - 0.5 mg PO Q6HR PRN 09/23/17 11/10/17 Ipratropium/Albuterol [Duoneb] 1 inh INH Q6HR PRN 11/03/17 11/10/17 Loperamide [Imodium] 2 mg PO Q4HR PRN 11/03/17 11/10/17 Cefuroxime Axetil [Cefuroxime] 500 mg PO BID #20 tablet 11/10/17 Cephalexin [Keflex] 500 mg PO TID MDD 14 DAYS 11/10/17 11/10/17 Fluconazole [Diflucan] 200 mg PO DAILY MDD 14 DAYS 11/10/17 11/10/17 - Allergies Allergies/Adverse Reactions: Allergies Allergy/AdvReac Type Severity Reaction Status Date / Time codeine Allergy Itching Verified 02/09/16 12:11 - Social History Does the pt smoke?: Yes Smoking Status: Current every day smoker Does the pt drink ETOH?: No - Immunizations Immunizations are current?: Yes - POLST Patient has POLST: Yes PD ED PE NORMAL - Vitals Vital signs reviewed: Yes - General General: Alert and oriented X 3 - HEENT HEENT: PERRL, Moist mucous membranes - Neck Neck: Supple, no meningeal sign - Cardiac Cardiac: RRR, Strong equal pulses - Respiratory Respiratory: No respiratory distress, Clear bilaterally - Abdomen Abdomen: Soft, Non distended, Other (Mild suprapubic tenderness without peritoneal signs) - Back Back: No spinal TTP - Derm Derm: Warm and dry - Extremities Extremities: No edema - Neuro Neuro: Alert and oriented X 3 - Psych Psych: Normal mood, Normal affect Results - Vitals Vitals: Vital Signs - 24 hr 11/10/17 11/10/17 12:27 14:48 Temperature 37.0 C 37.2 C Heart Rate 96 101 H Respiratory 18 15 Rate Blood Pressure 124/68 105/68 O2 Saturation 97 98 Oxygen O2 Source Room air - Labs Labs: Laboratory Tests 11/10/17 11/10/17 11/10/17 12:45 13:13 13:13 WBC 3.4 L RBC 3.51 L Hgb 10.5 L Hct 31.6 L MCV 90.1 MCH 30.0 MCHC 33.2 RDW 20.3 H Plt Count 298 MPV 6.6 L Neut # 2.7 Lymph # 0.2 L Mcmullen # 0.4 Eos # 0.1 Baso # 0.0 Absolute Nucleated RBC 0.00 Nucleated RBC % 0.0 Manual Slide Review Indicated Platelet Estimate NORMAL (130-450,000) Platelet Morphology NORMAL APPEARANCE RBC Morph Micro Appear 2+ ANISOCYTOSIS Sodium 138 Potassium 4.2 Chloride 101 Carbon Dioxide 26 Anion Gap 11.0 BUN 15 Creatinine 1.2 H Estimated GFR (MDRD) 45 L Glucose 98 Calcium 9.2 Phosphorus 4.1 Magnesium 1.9 Total Bilirubin 0.4 AST 16 ALT 13 Alkaline Phosphatase 87 Total Protein 6.8 Albumin 3.1 L Globulin 3.7 Albumin/Globulin Ratio 0.8 L Lipase 10 L Urine Color YELLOW Urine Clarity CLOUDY Urine pH 6.0 Ur Specific [place] 1.015 Urine Protein 100 H Urine Glucose (UA) NEGATIVE Urine Ketones NEGATIVE Urine Occult Blood MODERATE H Urine Nitrite NEGATIVE Urine Bilirubin NEGATIVE Urine Urobilinogen 0.2 (NORMAL) Ur Leukocyte Esterase LARGE H Urine RBC 11-25 H Urine WBC >25 H Urine WBC Clumps PRESENT Ur Squamous Epith Cells RARE Squamous Urine Bacteria Moderate H Ur Microscopic Review INDICATED Urine Culture Comments INDICATED PD MEDICAL DECISION MAKING - ED course Complexity details: reviewed old records, reviewed results, re-evaluated patient , considered differential, d/w patient, d/w family ED course: Patient is a 66-year-old female who presents to the emergency department with lower abdominal pain, she is concerned that she is not emptying her bladder completely after urination. Bedside ultrasound was utilized to ensure that she is emptying her bladder well. Her stent is visible in the bladder as well. She does appear to have a UTI and given a dose of Rocephin here. Will change her antibiotics based on prior cultures. She is well-appearing, nontoxic. No fevers. No sepsis. Patient and family counseled regarding signs and symptoms for which I believe and urgent re-evaluation would be necessary. Patient with good understanding of and agreement to plan and is comfortable going home at this time This document was made in part using voice recognition software. While efforts are made to proofread this document, sound alike and grammatical errors may occur. Departure - Departure Disposition: 01 Home, Self Care Clinical Impression: UTI (urinary tract infection) Qualifiers: Urinary tract infection type: acute cystitis Hematuria presence: without hematuria Qualified Code(s): N30.00 - Acute cystitis without hematuria Condition: Good Instructions: ED UTI Cystitis Female Follow-Up: Laurel Mcfarland ARNP [Primary Care Provider] - Within 1 week Prescriptions: Cefuroxime Axetil [Cefuroxime] 500 mg PO BID #20 tablet Comments: Stop the Keflex and start the cefuroxime instead. Return if you worsen. This should improve over the next few days. You do not have urinary retention today. Discharge Date/Time: 11/10/17 14:48
[2017-11-10] MEDS ORDERED: ELECTROLYTE-A SOLUTION 1,000 ML IV ONE (12:53)
[2017-11-10 13:07] LABS: BILIRUBIN,URINE NEGATIVE (NEGATIVE); GLUCOSE, URINE (UA) NEGATIVE (NEGATIVE); KETONES,URINE (UA) NEGATIVE (NEGATIVE); LEUKOCYTE ESTERASE, URINE LARGE (NEGATIVE); NITRITE,URINE NEGATIVE (NEGATIVE); OCCULT BLOOD,URINE MODERATE (NEGATIVE); PROTEIN,URINE 100 mg/dL (NEGATIVE); UROBILINOGEN,URINE 0.2 (NORMAL) E.U./dL (NORMAL)
[2017-11-10 13:08] LABS: CLARITY,URINE CLOUDY (CLEAR)
[2017-11-10 13:18] LABS: WBC CLUMPS,URINE PRESENT
[2017-11-10 13:19] LABS: BACTERIA,URINE Moderate /HPF (None Seen); SQUAMOUS EPITHELIAL CELL,UR RARE Squamous (<= Few)
[2017-11-10 13:24] LABS: BASOPHILS % (AUTO) 0.2 %; EOSINOPHILS # (AUTO) 0.1 10^3/uL (0.0-0.7); EOSINOPHILS % (AUTO) 2.2 %; HGB - HEMOGLOBIN 10.5 g/dL (12.0-16.0); LYMPHOCYTES # (AUTO) 0.2 10^3/uL (1.5-3.5); LYMPHOCYTES % (AUTO) 6.8 %; MEAN CORPUSCULAR HGB CONC 33.2 g/dL (32.0-36.0); MEAN CORPUSCULAR VOLUME 90.1 fL (81.0-99.0); MEAN PLATELET VOLUME 6.6 fL (7.9-10.8); MONOCYTES # (AUTO) 0.4 10^3/uL (0.0-1.0); MONOCYTES % (AUTO) 10.5 %; NEUTROPHILS # (AUTO) 2.7 10^3/uL (1.5-6.6); NEUTROPHILS % (AUTO) 80.3 %; PLT - PLATELET COUNT 298 10^3/uL (130-450); RED BLOOD COUNT 3.51 10^6/uL (4.20-5.40); RED CELL DISTRIBUTION WIDTH 20.3 % (12.0-15.0); WHITE BLOOD COUNT 3.4 x10^3/uL (4.8-10.8)
[2017-11-10 13:35] LABS: ALBUMIN 3.1 g/dL (3.2-5.5); ALBUMIN/GLOBULIN RATIO 0.8 (1.0-2.2); BILIRUBIN,TOTAL 0.4 mg/dL (0.2-1.0); CALCIUM 9.2 mg/dL (8.5-10.3); CREATININE 1.2 mg/dL (0.4-1.0); MAGNESIUM 1.9 mg/dL (1.7-2.8); PHOSPHORUS 4.1 mg/dL (2.5-4.6); TOTAL PROTEIN 6.8 g/dL (6.7-8.2)
[2017-11-10] MEDS ORDERED: cefTRIAXone 1 GM VIAL IVP STA (13:35)
[2017-11-10 13:43] LABS: PLATELET ESTIMATE, MANUAL NORMAL (130-450,000) (NORMAL); PLATELET MORPHOLOGY NORMAL APPEARANCE (NORMAL); RBC MORPHOLOGY (MULTIPLE) 2+ ANISOCYTOSIS (NORMAL)
[2017-11-10 14:49] VITALS: BP 105/68
== END 2017-11-10 14:48 | disposition home or self-care (01) ==
LOC: ED 12:20
DX: N30.00 Acute cystitis without hematuria (principal); C53.9 Malignant neoplasm of cervix uteri, unspecified; F17.200 Nicotine dependence, unspecified, uncomplicated; Z92.21 Personal history of antineoplastic chemotherapy; Z92.3 Personal history of irradiation
CPT/HCPCS: 36415; 80053; 81001; 81003; 83690; 83735; 84100; 85025; 87086; 96374; 99283; 99284

== ENCOUNTER 2017-11-10 13:11 | Outpatient (CLI) | payer MEDICARE, MEDICAID ==
--- NOTE | 2017-11-10 13:16 | CONSULTATION NOTE ---
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 She has had a left ureteral obstruction secondary to her cancer with an external nephrostomy tube which she has had replaced in last couple weeks. She received her last radiation treatment this last Monday, she reports he did have some difficulty and had to use a rectal tube for gas bubble. She has completed chemotherapy a couple of weeks prior to this. She is not needing to be re- evaluated until January. She had been having some possible retentive symptoms when I saw her last Monday , had been feeling actually fairly good, and very excited to be finished with her treatment. I did leave a specimen cup, though I was concerned about her having recurrent UTIs. She did turn in a urine on Monday, but prior to results available patient did end up in [facility] emergency department. Unfortunately to her daughter's distress they did not do a bladder scan, they did discharge her on fairly high doses Diflucan, as well as an antibiotic. Her urine here as far as culture did report yeast but it was 10-50,000 colonies per ml. Patient would be expected to have a high white and red blood count secondary cystitis from radiation. Unfortunately over the week she has not improved with her symptoms of dysuria, she does feel like she is topping off, going small frequent amounts with significant discomfort. She does have a tender abdomen with palpation him unable to deeply palpate secondary to her tenderness. And over the last few days has had increased development of lower back pain radiating from the back around to the front. Patient has had several hospitalizations and has almost 8 PTSD response as far as how severely sick she has been. She was hoping to "catch a break". I did follow up with Dr. Givens [phone] regarding my concerns about possible retention, and she does have only one kidney, if she is retaining and putting that kidney at risk this would be a significant detriment. They were unable to fit her in on an urgent visit, did recommend follow-up the ED, did call in report to [facility] ED and patient will be evaluated in the emergency room. The plan would be to place a Mcintosh if needed, and the 2 providers can talk. The other underlying problem presented, she does have increased dizziness, she has had increased pain so taking more breakthrough pain medication, for somewhat of an unknown reason both to myself and the daughter she restarted on her oxycodone which has in past caused dizziness versus her hydrocodone which she tolerated except at higher doses. She is on fentanyl 25 mcg patch, she has been using anywhere from 4-6 oxycodone at this point for breakthrough pain medicationAnd she also is on fairly high doses of Diflucan so unclear exactly the underlying etiology but suspect it is medication induced. She has been drinking and pushing fluids, her appetite is diminished again,. Patient also needs [id number] for oxygen therapy, with ambulation she does drop down quite quickly to 88% and recovers after 3-4 minutes. This may be adding to her dizziness as well she is on 2 L continuously. She does have underlying COPD. She does use her DuoNeb about twice a day. She has been diagnosed with the flu in the last month as well as pneumonia. Social History - Living Situation Living arrangement: At home Living Situation: With family (Lives at home with her daughter's family, this is an quite a stressor for her the fact that she has needed so much time and attention. Activity does oversee her care, though she does try to encourage her mother to be as independent as possible) Medications/Allergies - Medications Home Medications: Ambulatory Orders Medication Instructions Recorded Confirmed Fluticasone/Vilanterol [Breo 1 puffs INH DAILY 06/24/16 11/10/17 Ellipta 200-25 Mcg INH] Escitalopram Oxalate 20 mg PO DAILY 08/14/17 11/10/17 HYDROcod/ACETAM 5/325 [[place] 5/325] 1 - 2 ea PO Q4HR PRN MDD 10 tabs 08/14/17 Ondansetron [Ondansetron Odt] 8 mg PO Q8HR PRN 08/14/17 11/10/17 Polyethylene Glycol 3350 [Miralax] 17 gm PO DAILY 08/14/17 11/10/17 Sennosides [Senna] 3 tab PO BID PRN 08/14/17 11/10/17 Albuterol Sulf [Ventolin Hfa 2 puffs INH Q4HR PRN 09/16/17 11/10/17 Inhaler] Budesonide/Formoterol Fumarate 2 puffs INH BID 09/16/17 11/10/17 [Symbicort 160-4.5 Mcg Inhaler] fentaNYL [Fentanyl 25mcg patch] 25 mcg TOP DAILY 09/16/17 11/10/17 LORazepam [Ativan] 0.25 - 0.5 mg PO Q6HR PRN 09/23/17 11/10/17 Ipratropium/Albuterol [Duoneb] 1 inh INH Q6HR PRN 11/03/17 11/10/17 Loperamide [Imodium] 2 mg PO Q4HR PRN 11/03/17 11/10/17 Cephalexin [Keflex] 500 mg PO TID MDD 14 DAYS 11/10/17 11/10/17 Fluconazole [Diflucan] 200 mg PO DAILY MDD 14 DAYS 11/10/17 11/10/17 - Allergies Allergies/Adverse Reactions: Allergies Allergy/AdvReac Type Severity Reaction Status Date / Time codeine Allergy Itching Verified 02/09/16 12:11 Review of Systems - Constitutional Constitutional: reports: Fatigue, Weakness, Weight loss - Eyes Eyes: reports: Vision loss, Corrective lenses - Ears, Nose & Throat Ears, Nose & Throat: reports: Dry mouth - Cardiovascular Cardiovascular: reports: Lightheadedness, Exertional dyspnea, Decr. exercise tolerance - Respiratory Respiratory: reports: SOB at rest, SOB with exertion. denies: Cough - Gastrointestinal Gastrointestinal: reports: Abdominal pain, Abdominal distention, Change in bowel habits (fluctuating diarrhea/constipation), Nausea, Poor appetite, Early satiety (had been doing better last week; change with pain/ab; drinking fluids) - Genitourinary Genitourinary: reports: Dysuria, Frequency, Urgency, Incontinence, Other - Musculoskeletal Musculoskeletal: reports: Back pain, Muscle weakness, Assistive devices (uses walker when outside of home; having more dizzyness) - Integumentary Integumentary: reports: Dryness - Neurological Neurological: reports: General weakness, Dizziness, Memory problems (at baseline has forgetfulness; more difficulty with tracking this week) - Psychiatric Psychiatric: reports: Depression (had just finished treatment radiation/ chemotherapy was hoping to "have a break"), Anxiety (Patient with baseline anxiety disorder, she is very anxious about being rehospitalized she has been hospitalized several times over the last several months with urosepsis and complications from her cancer and treatment) - Hematologic/Lymphatic Hematologic/Lymphatic: reports: Recurrent infections (Now on antibiotics noted yeast in urine) - All Other Systems All Other Systems: reports: Reviewed and negative Physical Exam - Vital Signs Temperature: 97 C Pulse Rate: 108 Respiratory Rate: 20 O2 Saturation: 92 (ra @ rest; ambulation dropped to 88%; 4 minutes recovery) Blood Pressure: 112/72 - Physical Exam General Appearance: positive: Moderate distress, Anxious Eyes Bilateral: positive: Normal inspection ENT: positive: Dry mucous membranes Neck: positive: No JVD, Trachea midline Cardiovascular: positive: Regular rate & rhythm, Tachycardia (with anxiety fluctuating) Respiratory: positive: Diminished throughout. negative: Wheezes, Rales, Rhonchi Abdomen: positive: Tenderness, Guarding, Distended, Other (see HPI) Skin: positive: Pallor, Dryness Extremities: positive: No pedal edema Neurologic/Psychiatric: positive: Oriented x3 (gets easily overwhelmed and stressed; difficulty tracking is baseline), Weakness Palliative Care - POLST Patient has POLST: Yes POLST Status: DNR, Selective Treatment Pain: Pain worsening, Location (abdominal pain over radiated area; new progressive lower back pain radiating around in "band fashion") Tiredness/Fatigue: Severe (7-10) Drowsiness/Sedation: Mild (1-3) Depression: Moderate (4-6) (discouraged with feeling poorly this week) Anxiety: Severe (7-10) Dyspnea: Moderate (4-6) Anorexia: Moderate (4-6) Sleep: Variable sleep pattern Constipation: Yes, Opoid induced, Unmanaged, Intermittent constipation - Palliative Care Discussion: Patient expressed dismay over another Setback. Patient has had multiple complications the variety of Unfortunate events. Did try to reassure her, this is an acute symptom that of concern that we do need to rule out anything that may be problematic given her history with her "plumbing". Patient is hopeful for some recovery time, she does get easily overwhelmed and anxious. We did discuss waiting for the physician to call back, setting some goals in the future. Did provide her [facility] cancer retreat has something to look forward to. Results - Lab Results Lab results reviewed: Yes Impression and Recommendations - Palliative Care Impression: This is a rosa m 66-year-old woman who has a complex history regarding her underlying stage IV squamous cell carcinoma involving the lower uterine/cervix and invasion of the bladder wall. She now presents with increased symptoms and concern regarding urinary retention versus acute cystitis induced by radiation. She does have fairly high symptom burden, uncontrolled pain, depression, and anxiety. Palliative care providing support for pain and symptom management and anticipatory guidance Recommendations/Counseling Done: 1. Acute lower abdominal pain. Concern regarding symptoms of urinary retention versus acute radiation cystitis. Given patient's recent replacement from nephrostomy tube to stent, as well as recurrent UTIs, and no improvement on antibiotic. Discussed with Dr. Givens's office regarding plan of action, report called to [facility] ED regarding concerns, possible placement of Mcintosh, as well as full evaluation of increased pain. 2. Dizziness most likely multifactorial in origin. May need to revisit 2 weeks of Diflucan at 200 mg, Will have her take an evening versus a.m. as she does attribute the dizziness to a.m. medications. Will have patient use hydrocodone versus oxycodone, oxycodone was put away.. Patient also to take hydrocodone versus oxycodone, as well as continued to push fluids. 3. Pain of neoplastic origin. Will continue on her fentanyl 25 mcg patch, do not want to increase it in the face of an acute exacerbation of her pain unclear etiology. She will continue use the hydrocodone for breakthrough pain, Rx provided for patch. Time Spent: Time spent 60 minutes with greater than 50% of this done in counseling and follow-up regarding patient's acute on chronic abdominal pain, counseling for depression, and anticipatory guidance
== END 2017-11-10 13:12 | disposition home or self-care (01) ==
LOC: PC 13:11
PROVIDERS: ATTEND Nurse Practitioner Adult Health
DX: Z51.5 Encounter for palliative care (principal); R10.9 Unspecified abdominal pain; R42 Dizziness and giddiness; C53.9 Malignant neoplasm of cervix uteri, unspecified; Z93.6 Other artificial openings of urinary tract status; R30.0 Dysuria; Z79.891 Long term (current) use of opiate analgesic; J44.9 Chronic obstructive pulmonary disease, unspecified; Z99.81 Dependence on supplemental oxygen; M62.81 Muscle weakness (generalized); F32.9 Major depressive disorder, single episode, unspecified; F41.9 Anxiety disorder, unspecified; K59.03 Drug induced constipation; T40.2X5D Adverse effect of other opioids, subsequent encounter; Z66 Do not resuscitate
CPT/HCPCS: 99350

== ENCOUNTER 2017-11-22 08:00 | Outpatient (CLI) | payer MEDICARE, MEDICAID ==
[2017-11-22 12:30] LABS: BILIRUBIN,URINE NEGATIVE (NEGATIVE); GLUCOSE, URINE (UA) NEGATIVE (NEGATIVE); KETONES,URINE (UA) NEGATIVE (NEGATIVE); LEUKOCYTE ESTERASE, URINE MODERATE (NEGATIVE); NITRITE,URINE NEGATIVE (NEGATIVE); OCCULT BLOOD,URINE LARGE (NEGATIVE); PH,URINE 5.5 PH (5.0-7.5); PROTEIN,URINE 100 mg/dL (NEGATIVE); UROBILINOGEN,URINE 0.2 (NORMAL) E.U./dL (NORMAL)
[2017-11-22 12:33] LABS: CLARITY,URINE CLOUDY (CLEAR)
[2017-11-22 12:53] LABS: BACTERIA,URINE Few /HPF (None Seen); SQUAMOUS EPITHELIAL CELL,UR FEW Squamous (<= Few)
== END 2017-11-22 08:01 | disposition home or self-care (01) ==
LOC: LAB.R 08:00
PROVIDERS: ATTEND Nurse Practitioner Adult Health
DX: R30.0 Dysuria (principal)
CPT/HCPCS: 81001; 81003; 87086

== ENCOUNTER 2017-11-24 20:04 | Outpatient (CLI) | payer MEDICARE, MEDICAID ==
--- NOTE | 2017-11-24 20:10 | CONSULTATION NOTE ---
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 She is also had a left ureteral obstruction secondary to cancer which originally was treated with an external nephrostomy tube, this is been really placed with a stent. She has completed both her chemotherapy and radiation. She had a brief reprieve have may be a week, and then ended up with recurrent increase in severe pain. She has been to the emergency room 2, treated with antibiotics and Diflucan for noted yeast. She is continued to have a high white and red blood count, originally thought to be secondary cystitis from radiation. Most recent UA on 321, continues to show large amount of occult blood, as well as greater than 25 WBC, 6-10 RBC, and was indicated for culture. Final culture showed greater than 10,000 colonies of urogenital gary. She has not had any fever or sepsis, but has had ongoing pain and dysuria. In light of this contact was made with the urologist he does attribute her pelvic and bladder pain directly related to her disease and treatments. Including the goal is palliation with her choices regarding his stent and drainage of the obstructive kidney her to keep this stent or have the nephrostomy placed. If the stent is making her bladder irritability worse she has a choice to go back, this was shared with the patient. She is not due to follow back with her oncologist until January, the concern is her escalating pain. She is going frequently, her pain is lower pelvic area, and now severe lower back pain, this is new, and it is painful with urination. She does not on external vaginal exam show any redness, signs or symptoms of yeast, or infection. She does have continuous leakage of urine. Was able to obtain a bladder scanner, bladder scan was negative for retention. She has just completed her second round of antibiotics and is not indicated at this point in time. They did do a I and O, with 800 mils of dark brown appears almost like bilirubin in the urine, with a large amount of sediment. No mucus shreds are noted bleeding. Her pain is currently on fentanyl 25 mcg patch, unfortunately she is needed about 10 hydrocodone for breakthrough pain. Did order Pyridium to try and address the dysuria, unfortunately insurance did not cover it, did speak with pharmacist and recommended [id number] with therapeutic dosing. They have not started this yet. Will titrate her pain regimen, plan to follow-up with Dr. Ruiz regarding further evaluation. Patient is quite resistant to returning to the emergency room, as does feel there is little improvement her outcome at this point offered Social History - Living Situation Living arrangement: At home Living Situation: With family (She lives with her daughter Dana, and her family. Dana has applied to be her shannan worker, they finished their evaluation this last week. This would decrease some of the financial to stressorsIf this were to be complete) Medications/Allergies - Medications Home Medications: Ambulatory Orders Medication Instructions Recorded Confirmed Fluticasone/Vilanterol [Breo 1 puffs INH DAILY 06/24/16 11/24/17 Ellipta 200-25 Mcg INH] Escitalopram Oxalate 20 mg PO DAILY 08/14/17 11/24/17 HYDROcod/ACETAM 5/325 [[place] 5/325] 1 - 2 ea PO Q4HR PRN MDD 10 tabs 08/14/17 Ondansetron [Ondansetron Odt] 8 mg PO Q8HR PRN 08/14/17 11/24/17 Polyethylene Glycol 3350 [Miralax] 17 gm PO DAILY 08/14/17 11/24/17 Sennosides [Senna] 3 tab PO BID PRN 08/14/17 11/24/17 Albuterol Sulf [Ventolin Hfa 2 puffs INH Q4HR PRN 09/16/17 11/24/17 Inhaler] Budesonide/Formoterol Fumarate 2 puffs INH BID 09/16/17 11/24/17 [Symbicort 160-4.5 Mcg Inhaler] fentaNYL [Fentanyl 25mcg patch] 37 mcg TOP DAILY 09/16/17 11/24/17 LORazepam [Ativan] 0.25 - 0.5 mg PO Q6HR PRN 09/23/17 11/24/17 Ipratropium/Albuterol [Duoneb] 1 inh INH Q6HR PRN 11/03/17 11/24/17 Loperamide [Imodium] 2 mg PO Q4HR PRN 11/03/17 11/24/17 Dexamethasone 2 mg PO DAILY 11/24/17 11/24/17 Phenazopyridine [Pyridium] 200 mg PO TID PRN 11/25/17 11/25/17 - Allergies Allergies/Adverse Reactions: Allergies Allergy/AdvReac Type Severity Reaction Status Date / Time codeine Allergy Itching Verified 02/09/16 12:11 Review of Systems - Constitutional Constitutional: reports: Fatigue, Poor appetite, Weight loss (no current scale) . denies: Fever, Chills - Eyes Eyes: reports: Vision loss, Corrective lenses - Ears, Nose & Throat Ears, Nose & Throat: reports: Nasal congestion - Cardiovascular Cardiovascular: reports: Lightheadedness, Exertional dyspnea, Decr. exercise tolerance - Respiratory Respiratory: reports: SOB at rest, SOB with exertion - Gastrointestinal Gastrointestinal: reports: Nausea, Vomiting, Poor appetite, Early satiety. denies: Constipation, Diarrhea, Rectal bleeding, Reflux/heartburn - Genitourinary Genitourinary: reports: Dysuria, Frequency, Urgency, Incontinence - Musculoskeletal Musculoskeletal: reports: Muscle pain, Back pain, Muscle aches, Muscle weakness - Integumentary Integumentary: reports: Dryness - Neurological Neurological: reports: General weakness, Dizziness, Memory problems - Psychiatric Psychiatric: reports: Depression, Anxiety - Hematologic/Lymphatic Hematologic/Lymphatic: reports: Anemia, Recurrent infections - All Other Systems All Other Systems: reports: Reviewed and negative Physical Exam - Vital Signs Temperature: 97.7 C Pulse Rate: 83 Respiratory Rate: 20 O2 Saturation: 93 (see f2f for comments) Blood Pressure: 142/84 - Physical Exam General Appearance: positive: Moderate distress, Anxious Eyes Bilateral: positive: Other (periorbital edema) ENT: positive: ENT inspection nml Neck: positive: No JVD, Trachea midline Cardiovascular: positive: Regular rate & rhythm Respiratory: positive: Diminished throughout. negative: Wheezes, Rales, Rhonchi Abdomen: positive: Soft, Nml bowel sounds, Tenderness, Guarding Skin: positive: Dryness Extremities: positive: No pedal edema, Other (Weak and shaky when up, does appear to have some balance and dizziness. Assisted from standing to sitting, he only able to tolerate ambulating 20 feet without needing to rest.) Neurologic/Psychiatric: positive: Disoriented to time, Weakness, Depressed mood/ affect Palliative Care - POLST Patient has POLST: Yes POLST Status: DNR, Selective Treatment Pain: Pain worsening, Location Tiredness/Fatigue: Severe (7-10) Drowsiness/Sedation: Moderate (4-6) Nausea: Moderate (4-6) Depression: Moderate (4-6) Anxiety: Severe (7-10) Dyspnea: Moderate (4-6) Anorexia: Severe (7-10) Sleep: Sleeps poorly (relates this to frequent urination and pain) Constipation: Yes, Opoid induced, Managed Feelings of wellbeing/Perceived Quality of Life: Poor, Worsening Performance Status: Patient had improved to the point she was managing independently most of her ADLs. Over the last few weeks this is deteriorated related to the pain, increased dizziness, nausea, and poor activity tolerance. - Palliative Care Discussion: Patient expresses anxiety and depression regarding ongoing symptoms, deterioration in her health status, and concerned that it is related to her cancer. Currently her pain is poorly managed, goals are to focus on quality of life issues, symptom management being 1. Agreement for titration of medications , and follow-up with oncologist. Patient expressing feelings of grief and loss , concern for stress on her daughter, and worried about the future. Results - Lab Results Lab results reviewed: Yes Impression and Recommendations - Palliative Care Impression: This is a rosa m 66-year-old woman who has a complex history regarding her stage IV squamous carcinoma involving the lower uterine/cervix and invasion of the bladder wall. She has continued symptoms of acute cystitis, increasing pain , sequela of nausea, anorexia, depression, and anxiety. Palliative care providing support for pain and symptom management and coordination of care. Recommendations/Counseling Done: 1. Acute on chronic pain meds neoplastic in origin. Patient does not present with retention, bladder scan rule this out. Most likely multifactorial in origin , it is now several weeks out from radiation. Noted increased pain in her lower back radiating across the lumbar area, as well as severe dysuria. Will have patient use Pyridium 200 mg 3 times daily, increasing fentanyl patch from 25 to37 mcg, will continue to titrate to comfort. Will continue use hydrocodone for breakthrough pain, though suspect this is adding to her nausea and dizziness. 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 Will follow up with oncologist, patient certainly at risk for fistula formation, progressive disease , and concern if stent adding to his discomfort. Call placed to office, will follow up on Monday if no response. 3. Anorexia. Patient with nausea, is using scheduled ondansetron, will add back dexamethasone 2 mg daily for short period of time. This was effective for her previously. Encouraged to continue pushing fluids, using supplements, and small frequent meals. 4. Depression. Patient presents with appropriate response to ongoing symptom distress, and concern about progressive disease. Counseled for normalizing feelings of grief and loss particularly in the face of the unknown. 5. Dysuria. Patient high risk for recurrent UTIs, currently does not present with any systemic symptoms, or high bacterial count. Patient without response to antibiotics, does show yeast is resolved. Patient and daughter counseled on signs and symptoms regarding sepsis, progressive pain, confusion, or uncontrolled symptoms to seek emergent assistance. 6. Advanced care planning. Patient does have a ELFEGO ST in place. Her goal was to have some plateau and relief from her pain and distress, and "normalize her life" for at least period of time. Patient does have serious disease, concern for progression, patient is given multiple comorbidities most likely to have limited treatment options. 7. COPD. Patient does present with advanced COPD. She needs [id number] for her oxygen. She does use it continuously at 2 L. O2 sat off of room air 90%, with activity of ambulation of 88% of 20-30 feet, with O2 on at 2 L is 93%. Patient is using duo nebs twice a day, maximally managed on inhalers including albuterol 2 puffs every 4 hours in addition to her nebulizer twice a day, Brio elliptical, 1 puff daily, as well as Symbicort 2 puffs twice daily. Concentrator does appear to have some problems with working as well as to being needs to be replaced, this is communicated to [facility] [place] for resolution. Time Spent: Time spent 60 minutes with greater than 50% of this addressing symptom burden, pain management, evaluation of her current distress as well as anticipatory guidance and coordination of care
== END 2017-11-24 20:05 | disposition home or self-care (01) ==
LOC: PC 20:04
PROVIDERS: ATTEND Nurse Practitioner Adult Health
DX: Z51.5 Encounter for palliative care (principal); G89.3 Neoplasm related pain (acute) (chronic); C53.9 Malignant neoplasm of cervix uteri, unspecified; R63.0 Anorexia; F32.9 Major depressive disorder, single episode, unspecified; J44.9 Chronic obstructive pulmonary disease, unspecified; Z99.81 Dependence on supplemental oxygen; R30.0 Dysuria; Z96.0 Presence of urogenital implants; Z79.891 Long term (current) use of opiate analgesic; F41.9 Anxiety disorder, unspecified; M62.81 Muscle weakness (generalized); K59.03 Drug induced constipation; T40.2X5A Adverse effect of other opioids, initial encounter; Z66 Do not resuscitate
CPT/HCPCS: 99350

== ENCOUNTER 2017-12-01 16:52 | Outpatient (CLI) | payer MEDICARE, MEDICAID ==
--- NOTE | 2017-12-02 14:26 | CONSULTATION NOTE ---
Palliative Care Follow Up - Referral Referring Provider: Laurel HYDE Time of Visit: [id number] Referral setting: Home (It is a taxing and considerable effort for the patient to leave the home, related to pain and fatigue; to facilitate treatment plan and family conference) Referral Reason: Stage IV Cervical Cancer / Pain of neoplastic origin - Information Sources Records reviewed: Previous records reviewed History/Review of Systems obtained from: Patient, Family (Daughter Dana at visit) Exam limitations: No limitations - History of Present Illness Update Brief HPI Update: This is a rosa m 67-year-old woman who has 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 She also had a left ureteral obstruction secondary to her cancer, for which she had nephrostomy tube now replaced with a stent. She has completed both her chemotherapy and radiation, but has had a very difficult time in the last few weeks attributed both to cystitis from radiation, concern regarding stents causing more irritation, and recurrent UTIs. Did speak with her oncologist, regarding concern for increasing and progressive pain, reports imaging at this point would not give information she has a sequela of her recent treatment, but if the stents were too painful to consider at least temporarily returning to the nephrostomy tube. This was shared with the patient , we had made some medication adjustments and agreed to discuss it again today. Pain with dysuria, has improved dramatically with the addition of some Pyridium. She is able to void without discomfort, frequency has diminished, and the increase in her fentanyl to 37 mcg has improved her overall pain as well. She has decreased her hydrocodone use to 4 tabs in 24 hours, which is resulted in decreased nausea and dizziness. She does though report increased intensity in her lower back pelvic pain, lower than her usual baseline lumbar stenotic pain. This is not influenced with walking, twisting, or weightbearing. She reports it is deep and intense, but is managed with hydrocodone. She is eating and drinking again, her appetite is improved with the improvement in her pain, we did reintroduce the dexamethasone 2 mg for short period given her weight loss. Patient's depression anxiety, and tremors have improved, she is feeling much better overall and quite encouraged. Social History - Living Situation Living arrangement: At home Living Situation: With family (lives with daughter and her family; working on [employer] support for daughter) Medications/Allergies - Medications Home Medications: Ambulatory Orders Medication Instructions Recorded Confirmed Fluticasone/Vilanterol [Breo 1 puffs INH DAILY 06/24/16 12/02/17 Ellipta 200-25 Mcg INH] Escitalopram Oxalate 20 mg PO DAILY 08/14/17 12/02/17 HYDROcod/ACETAM 5/325 [[place] 5/325] 1 - 2 ea PO Q4HR PRN MDD 10 tabs 08/14/17 Ondansetron [Ondansetron Odt] 8 mg PO Q8HR PRN 08/14/17 12/02/17 Polyethylene Glycol 3350 [Miralax] 17 gm PO DAILY 08/14/17 12/02/17 Sennosides [Senna] 3 tab PO BID PRN 08/14/17 12/02/17 Albuterol Sulf [Ventolin Hfa 2 puffs INH Q4HR PRN 09/16/17 12/02/17 Inhaler] Budesonide/Formoterol Fumarate 2 puffs INH BID 09/16/17 12/02/17 [Symbicort 160-4.5 Mcg Inhaler] fentaNYL [Fentanyl 25mcg patch] 50 mcg TOP DAILY 09/16/17 12/02/17 LORazepam [Ativan] 0.25 - 0.5 mg PO Q6HR PRN 09/23/17 12/02/17 Ipratropium/Albuterol [Duoneb] 1 inh INH Q6HR PRN 11/03/17 12/02/17 Loperamide [Imodium] 2 mg PO Q4HR PRN 11/03/17 12/02/17 Dexamethasone 2 mg PO DAILY 11/24/17 12/02/17 Phenazopyridine [Pyridium] 100 - 200 mg PO TID PRN 11/25/17 12/02/17 - Allergies Allergies/Adverse Reactions: Allergies Allergy/AdvReac Type Severity Reaction Status Date / Time codeine Allergy Itching Verified 02/09/16 12:11 Review of Systems - Constitutional Constitutional: reports: Fatigue (improving), Weakness, Poor appetite, Weight loss - Eyes Eyes: reports: Vision loss, Corrective lenses - Cardiovascular Cardiovascular: reports: Lightheadedness (almost resolved) - Respiratory Respiratory: reports: SOB with exertion. denies: Cough, SOB at rest - Gastrointestinal Gastrointestinal: reports: Nausea (worst first thing in AM; scheduled ondansetron BID), Poor appetite, Early satiety. denies: Constipation, Diarrhea , Reflux/heartburn - Genitourinary Genitourinary: denies: Dysuria (reports pyridium as helped "dramatically"), Incontinence - Musculoskeletal Musculoskeletal: reports: Back pain (worsened; see pain), Stiffness, Muscle weakness - Neurological Neurological: reports: Dizziness (improved), Memory problems (improved), Other ( tremors have decreased) - Psychiatric Psychiatric: reports: Depression (mild today), Anxiety (improved) - Endocrine Endocrine: denies: Diabetes type 2, Hypothyroidism - Hematologic/Lymphatic Hematologic/Lymphatic: reports: Anemia, Recurrent infections (UTIs; currently not on AB) - All Other Systems All Other Systems: reports: Reviewed and negative Physical Exam - Vital Signs Temperature: 96.7 C Pulse Rate: 70 Respiratory Rate: 18 O2 Saturation: 92 Blood Pressure: 132/68 - Physical Exam General Appearance: positive: No acute distress, Alert Eyes Bilateral: positive: Normal inspection ENT: positive: No signs of dehydration Neck: positive: No JVD, Trachea midline Cardiovascular: positive: Regular rate & rhythm Respiratory: positive: Diminished in bases. negative: Wheezes, Rales, Rhonchi Abdomen: positive: Soft, Tenderness (lower quadrant with palpation) Skin: positive: Pallor, Dryness Extremities: positive: No pedal edema, Other (able to ambulate without dizzyness ; gait much more stable; still demonstrates poor activity tolerance but reports improving) Neurologic/Psychiatric: positive: Oriented x3, Mood/affect nml, Weakness Palliative Care - POLST Patient has POLST: Yes POLST Status: DNR, Selective Treatment Pain: Pain improved (please see HPI) Tiredness/Fatigue: Moderate (4-6) Drowsiness/Sedation: Mild (1-3) Nausea: Mild (1-3) Depression: Mild (1-3) Anxiety: Moderate (4-6) Dyspnea: Mild (1-3) Anorexia: Moderate (4-6) Sleep: Sleep improved Constipation: Yes, Opoid induced, Managed Feelings of wellbeing/Perceived Quality of Life: Fair, Acceptable, Improved Performance Status: Patient presents with continued decrease activity tolerance, but she is able to ambulate without dizziness and short distances to the bathroom without concern. She was able to bathe independently, though her daughter is nearby for safety. She is spending less time in the bed, more in the recliner. She is just starting to initiate some increase in her walking around the house. - Palliative Care Discussion: Patient feeling much more encouraged with current control of pain and symptoms, she is eating better, though she still presents with fairly high symptom burden. Given the improvement in her physical symptoms, her emotional response has improved as well as her coping. Patient does understand the seriousness of her illness, but is hoping for a fairly prolonged reprieve and to feel better. She does want to contribute to the household, she has been able to fold laundry for her daughter, this does help her feel less stressed and she does worry about increased burden that she is providing with her care to her daughter. Impression and Recommendations - Palliative Care Impression: This is a rosa m 67-year-old woman has a complex history regarding her stage IV squamous carcinoma, urinary stents, recurrent urinary tract infections, and escalating pain. She does have high symptom burden, though she is much improved today. Palliative care to continue provide support for pain and symptom management and coordination of care. Recommendations/Counseling Done: 1. 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 Patient's pain is much better controlled on her current regimen, in particular with the addition of the Pyridium. She does present with increased lower back pain, most likely not attributed to her lumbar stenosis. Counseling provided, will go ahead and titrate up to 50 mcg, she had no sedation with her last increased, will add 12 mcg, if she experiences side effects or sedation she can remove the patch. If this is acceptable, will switch to 50 mcg patches. 2. Stage IV squamous cell carcinoma of the cervix. Patient has completed chemotherapy/radiation, with the goal to improve quality and quantity of life. She has a follow-up appointment in January, he does have high anxiety regarding this , she is trying to stay focused on the here and now, and positive about the future. 3. Anorexia. Patient is responding to dexamethasone again, will continue for another week, then titrate back down. She still has some nausea with eating, early satiety, but is feeling more hungry and tolerating increased intake. 5. Dysuria. Patient remains at high risk for recurrent UTIs, she is using the Pyridium. She is drinking adequate fluids and flushing through without any further symptoms of retention. Will continue to monitor for signs and symptoms of infection but hopefully this is going to continue to stay her "new normal". She denies any further incontinence, will titrate back the Pyridium as patient tolerates, she is somewhat hesitant as this is been was given her the most relief. 6. Depression. Patient is seen the medical palliative care adoption social worker for ongoing support and counseling, she is feeling much better overall with her symptoms better controlled, continue to encourage her to express her feelings and concerns she is distressed at putting any burden on anyone else. Time Spent: 30 minutes with greater than 50% of this done in counseling regarding pain management, symptom management, and coordination of care. Plan for follow-up in 1-2 weeks depending on response to increased fentanyl.
== END 2017-12-01 16:53 | disposition home or self-care (01) ==
LOC: PC 16:52
PROVIDERS: ATTEND Nurse Practitioner Adult Health
DX: Z51.5 Encounter for palliative care (principal); G89.3 Neoplasm related pain (acute) (chronic); C53.9 Malignant neoplasm of cervix uteri, unspecified; R63.0 Anorexia; R11.0 Nausea; R30.0 Dysuria; F32.9 Major depressive disorder, single episode, unspecified; Z96.0 Presence of urogenital implants; Z87.440 Personal history of urinary (tract) infections; F41.9 Anxiety disorder, unspecified; Z79.891 Long term (current) use of opiate analgesic; K59.03 Drug induced constipation; T40.2X5D Adverse effect of other opioids, subsequent encounter; Z66 Do not resuscitate
CPT/HCPCS: 99348

== ENCOUNTER 2017-12-15 10:45 | Outpatient (CLI) | payer MEDICARE, MEDICAID ==
[2017-12-15 11:44] LABS: BASOPHILS % (AUTO) 0.3 %; EOSINOPHILS # (AUTO) 0.3 10^3/uL (0.0-0.7); EOSINOPHILS % (AUTO) 4.8 %; HGB - HEMOGLOBIN 11.7 g/dL (12.0-16.0); LYMPHOCYTES # (AUTO) 0.4 10^3/uL (1.5-3.5); LYMPHOCYTES % (AUTO) 6.5 %; MEAN CORPUSCULAR HGB CONC 32.5 g/dL (32.0-36.0); MEAN CORPUSCULAR VOLUME 89.3 fL (81.0-99.0); MEAN PLATELET VOLUME 8.5 fL (7.9-10.8); MONOCYTES # (AUTO) 0.5 10^3/uL (0.0-1.0); MONOCYTES % (AUTO) 7.8 %; NEUTROPHILS # (AUTO) 5.5 10^3/uL (1.5-6.6); NEUTROPHILS % (AUTO) 80.6 %; PLT - PLATELET COUNT 288 10^3/uL (130-450); RED BLOOD COUNT 4.03 10^6/uL (4.20-5.40); RED CELL DISTRIBUTION WIDTH 16.3 % (12.0-15.0); WHITE BLOOD COUNT 6.9 x10^3/uL (4.8-10.8)
[2017-12-15 11:46] LABS: BILIRUBIN,URINE NEGATIVE (NEGATIVE); GLUCOSE, URINE (UA) NEGATIVE (NEGATIVE); KETONES,URINE (UA) NEGATIVE (NEGATIVE); LEUKOCYTE ESTERASE, URINE LARGE (NEGATIVE); NITRITE,URINE NEGATIVE (NEGATIVE); OCCULT BLOOD,URINE MODERATE (NEGATIVE); PROTEIN,URINE 30 mg/dL (NEGATIVE); UROBILINOGEN,URINE 0.2 (NORMAL) E.U./dL (NORMAL)
[2017-12-15 11:48] LABS: CLARITY,URINE CLOUDY (CLEAR)
[2017-12-15 11:56] LABS: ALBUMIN 3.1 g/dL (3.2-5.5); ALBUMIN/GLOBULIN RATIO 0.9 (1.0-2.2); BILIRUBIN,TOTAL 0.5 mg/dL (0.2-1.0); CALCIUM 9.2 mg/dL (8.5-10.3); TOTAL PROTEIN 6.5 g/dL (6.7-8.2)
[2017-12-15 11:57] LABS: BACTERIA,URINE Moderate /HPF (None Seen); SQUAMOUS EPITHELIAL CELL,UR FEW Squamous (<= Few); WBC CLUMPS,URINE PRESENT
== END 2017-12-15 10:46 | disposition home or self-care (01) ==
LOC: LAB.R 10:45
PROVIDERS: ATTEND Nurse Practitioner Adult Health
DX: D64.9 Anemia, unspecified (principal); R30.0 Dysuria; Z79.899 Other long term (current) drug therapy
CPT/HCPCS: 80053; 81001; 81003; 85025; 87086

== ENCOUNTER 2017-12-15 12:38 | Outpatient (CLI) | payer MEDICARE, MEDICAID ==
--- NOTE | 2017-12-15 13:11 | CONSULTATION NOTE ---
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 She is also had a left ureteral obstruction secondary to her cancer, for which she is has a nephrostomy tube now replaced with a stent. She has received both chemo and radiation, has had some increasing pain , her dysuria was treated with Pyridium and she is doing fairly well up until a few days ago. She reports she has overwhelming fatigue, some sedation, she is now on fentanyl 50 mcg patch for her pain, but still needing some intermittent hydrocodone for sharp stabbing 10 out of 10 pain that comes intermittently. Her baseline pain is 4 out of 10, is worsened with constipation, and continues to be a source of high anxiety for her. She denies any fever chills, her appetite remains poor, she has been trying to stay hydrated. She continues to be discouraged by her lack of feeling well. Social History - Living Situation Living arrangement: At home Living Situation: With family (She lives with her daughter's family, her daughter is her primary caregiver. Also has multiple other obligations. It can also be some tension at times in the home. This adds to anxiety. Her daughter is pursuing being a [employer] paid caregiver, this should help with financial stressors when completed) Medications/Allergies - Medications Home Medications: Ambulatory Orders Medication Instructions Recorded Confirmed Fluticasone/Vilanterol [Breo 1 puffs INH DAILY 06/24/16 12/15/17 Ellipta 200-25 Mcg INH] Escitalopram Oxalate 20 mg PO DAILY 08/14/17 12/15/17 HYDROcod/ACETAM 5/325 [[place] 5/325] 1 - 2 ea PO Q4HR PRN MDD 10 tabs 08/14/17 Ondansetron [Ondansetron Odt] 8 mg PO Q8HR PRN 08/14/17 12/15/17 Polyethylene Glycol 3350 [Miralax] 17 gm PO DAILY 08/14/17 12/15/17 Sennosides [Senna] 3 tab PO BID PRN 08/14/17 12/15/17 Albuterol Sulf [Ventolin Hfa 2 puffs INH Q4HR PRN 09/16/17 12/15/17 Inhaler] Budesonide/Formoterol Fumarate 2 puffs INH BID 09/16/17 12/15/17 [Symbicort 160-4.5 Mcg Inhaler] fentaNYL [Fentanyl 25mcg patch] 50 mcg TOP DAILY 09/16/17 12/15/17 Ipratropium/Albuterol [Duoneb] 1 inh INH Q6HR PRN 11/03/17 12/15/17 Loperamide [Imodium] 2 mg PO Q4HR PRN 11/03/17 12/15/17 Phenazopyridine [Pyridium] 100 - 200 mg PO TID PRN 11/25/17 12/15/17 Alprazolam [Xanax] 0.25 mg PO Q6HR PRN 12/15/17 12/15/17 Sulfamethox/Trimeth 800/160 1 tab PO BID MDD 7 days 12/15/17 12/15/17 [Bactrim Ds] - Allergies Allergies/Adverse Reactions: Allergies Allergy/AdvReac Type Severity Reaction Status Date / Time codeine Allergy Itching Verified 02/09/16 12:11 Review of Systems - Constitutional Constitutional: reports: Fatigue (reports severe over the last several days; falling asleep easily; does not feel rested when wakes up), Poor appetite. denies: Fever, Chills - Eyes Eyes: reports: Vision loss, Corrective lenses - Ears, Nose & Throat Ears, Nose & Throat: reports: Hearing loss (mild) - Cardiovascular Cardiovascular: reports: Lightheadedness, Decr. exercise tolerance. denies: Chest pain - Respiratory Respiratory: reports: Cough (occasional), SOB with exertion, Other (has not been wearing oxygen). denies: Wheezing - Gastrointestinal Gastrointestinal: reports: Abdominal pain (pain intermittent; sharp shooting as if spasms; lasts only short period; very fearful of it; worsens with bowel movements), Constipation (hard stool today; usually soft several times a day), Nausea (worsening; constant; using ondansetron in AM; no vomiting), Poor appetite, Early satiety. denies: Vomiting - Genitourinary Genitourinary: denies: Dysuria (still on [place]; will try PRN to see if still present) - Musculoskeletal Musculoskeletal: reports: Back pain, Muscle weakness, Other (feels like strength is improving) - Integumentary Integumentary: reports: Dryness - Neurological Neurological: reports: General weakness, Dizziness, Memory problems (STM; especially with anxiety) - Psychiatric Psychiatric: reports: Depression, Anxiety - Endocrine Endocrine: reports: Intolerance to cold - Hematologic/Lymphatic Hematologic/Lymphatic: reports: Recurrent infections (UTIs) - All Other Systems All Other Systems: reports: Reviewed and negative Physical Exam - Vital Signs Temperature: 97.6 C Pulse Rate: 61 Respiratory Rate: 18 O2 Saturation: 88 (ra @ rest 95 with o2 at 2 liters) Blood Pressure: 102/62 - Physical Exam General Appearance: positive: Mild distress Eyes Bilateral: positive: Normal inspection, No scleral icterus ENT: positive: Pharynx nml Neck: positive: No JVD, Trachea midline Cardiovascular: positive: Regular rate & rhythm Respiratory: positive: Diminished throughout. negative: Wheezes, Rales, Rhonchi Abdomen: positive: Soft, Nml bowel sounds, Tenderness, Distended Skin: positive: Pallor, Dryness Extremities: positive: No pedal edema, Other (upper extremitiy tremors with anxiety) Neurologic/Psychiatric: positive: Oriented x3, Depressed mood/affect Palliative Care - POLST Patient has POLST: Yes POLST Status: DNR, Selective Treatment Pain: Pain worsening, Location (lower frontal abdominal pain; radiating around to the back; at rest 4/10-with spasms 10/10. Using 2 tabs hydrocodone 5 mg/325 mg APAP am, and about 3 in evening sometimes goes without. Fearful of waking up in pain; unclear pattern sometimes with bowel movement;) Tiredness/Fatigue: Severe (7-10) (finds herself lethargic; no energy; not confused; awake and alert through visit; but likes to go right back to bed) Drowsiness/Sedation: Moderate (4-6) Nausea: Moderate (4-6) Depression: Moderate (4-6) Anxiety: Moderate (4-6) Dyspnea: Moderate (4-6) Anorexia: Severe (7-10) Sleep: Variable sleep pattern Constipation: Yes, Opoid induced, Managed (usually without problems) Performance Status: Patient does feel like she is getting somewhat stronger, though she has felt poorly over the last few days been much more chair bound/bedbound. She does have dizziness episodes, she has tried to remain hydrated, she does need assistance with bathing. Would put her PPS at 60% - Palliative Care Discussion: Patient is feeling quite discouraged over continued poor health, she is relieved her pain is better controlled, but still has episodes of sharp shooting which increase her anxiety. Her follow-up with oncology is not until January, she tries to not dwell on concerns regarding her cancer. She continues to struggle with feeling like she is a burden on her daughter, and wondering what the future for her holds. Impression and Recommendations - Palliative Care Impression: This is a rosa m 67-year-old woman with a complex history regarding her stage IV squamous carcinoma, urinary stent, recurrent urinary tract infections, and ongoing feeling of ill health. Her pain currently is better controlled on the fentanyl 50 mcg patch, though she still has episodes of sharp shooting severe pain at 10/10, her baseline is improved at 4 out of 10. She has presented today with increased feelings of fatigue, dizziness, anorexia, and increased nausea. Palliative care to continue provide support for pain and symptom management and coordination of care. Recommendations/Counseling Done: 1. 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 Patient's use of breakthrough pain medication has decreased with increased the fentanyl 50 mcg patch. She does have some increased sedation and nausea with this, though this may also be attributed to concerns regarding infection. 2. Recurrent UTIs. Urinary specimen was taken, urine is dark chalo and cloudy. Given coming into the weekend, will go ahead and order based on preliminary results of UA, Bactrim DS 1 tab twice daily for 7 days. Did request if could discontinue a says her use as needed, concern it may be adding to her nausea 3. Anorexia. Patient is doing fairly well with fluids, caloric intake has decreased. Concern for ongoing weight loss, she is using Ensure, encouraged to increase to 3 times a day. Will hold off on reinitiating dexamethasone, though this has been effective for her in the past. 4. Stage IV squamous cell carcinoma of the cervix. Patient has completed chemotherapy/radiation, with the goal to improve quality and quantity of life. She has a follow-up appointment in January, and previous communication with Dr. Ruiz, no benefit to scan her sooner. 5. Depression. Patient is presenting with depressive symptoms today, concerned about ongoing feelings of ill health. Is meeting regularly with the medical palliative care clinical social work therapist, counseling to normalize her feelings of concern, grief, and loss. 6. Fatigue. This is most likely multifactorial in origin, will get CBC to rule out anemia, and CMP to rule out any metabolic abnormalities that can be corrected. We will go ahead and screen for infection as well, given patient's past history. Time Spent: 35 minutes with greater than 50% of this done in counseling regarding symptom management, coordination of care, labs drawn and delivered to [facility].
== END 2017-12-15 12:39 | disposition home or self-care (01) ==
LOC: PC 12:38
PROVIDERS: ATTEND Nurse Practitioner Adult Health
DX: Z51.5 Encounter for palliative care (principal); G89.3 Neoplasm related pain (acute) (chronic); C53.9 Malignant neoplasm of cervix uteri, unspecified; N32.9 Bladder disorder, unspecified; N39.0 Urinary tract infection, site not specified; R63.0 Anorexia; F32.9 Major depressive disorder, single episode, unspecified; R53.83 Other fatigue; Z93.6 Other artificial openings of urinary tract status; Z79.891 Long term (current) use of opiate analgesic; R11.0 Nausea; F41.9 Anxiety disorder, unspecified; M62.81 Muscle weakness (generalized); K59.03 Drug induced constipation; T40.2X5D Adverse effect of other opioids, subsequent encounter; Z66 Do not resuscitate
CPT/HCPCS: 99349

== ENCOUNTER 2017-12-29 12:43 | Outpatient (CLI) | payer MEDICARE, MEDICAID ==
--- NOTE | 2017-12-29 17:21 | CONSULTATION NOTE ---
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 She has a stent placement for a left ureteral obstruction secondary cancer, she is also had her right kidney removed. She is status post both chemo radiation, the readings with fairly high symptom burden. Her pain currently is fairly well controlled on fentanyl 50 mcg patch for her pain, she is using hydrocodone 2 tabs a.m. and 2 tabs p.m. Most of her most acute pain is on awakening, sharp shooting deep in pelvis, does get some relief after urinates. She has been feeling better over the last several days, had reinitiated dexamethasone 2 mg, this does appear to help both her nausea and appetite. She is aware we may not continue that long-term, but currently now is eating and drinking again. She denies any fever or chills, she is eating better, she is staying well-hydrated. Discussed patient's ongoing issues around urination, she is voiding every 30-45 minutes, this is related to the feeling of the pressure and the need to go. She did have intermittent dysuria of the this is now can controlled with the use of Azos of couple times a day. She does report when she goes to go she is just dribbling, she often has to push or express on her bladder to go, she often has soft bowel movements at the same time, both of these increase her pain and discomfort, but pain is improved after pressure is relieved. Patient has not progressed with any symptoms of infection, no fever or chills, but is questioning again about the stent, with her quality of life would be improved with the nephrostomy again. She does not have a follow up appointment with Dr. Givens, she is not due for her CT scan until the end of January, did discuss in the context of making this decision, I would follow-up with Dr. Givens's office for recommendations. Social History - Living Situation Living arrangement: At home Living Situation: With family (She lives with her daughter Dana and her family, recently her granddaughter has moved in. She has a 6 month baby, she very much enjoys this distraction. Dana is completing all the paperwork for the [employer] application, there have been many benefits that are going to be of support to both of them.) Medications/Allergies - Medications Home Medications: Ambulatory Orders Medication Instructions Recorded Confirmed Fluticasone/Vilanterol [Breo 1 puffs INH DAILY 06/24/16 12/29/17 Ellipta 200-25 Mcg INH] Escitalopram Oxalate 20 mg PO DAILY 08/14/17 12/29/17 HYDROcod/ACETAM 5/325 [[place] 5/325] 1 - 2 ea PO Q4HR PRN MDD 10 tabs 08/14/17 Ondansetron [Ondansetron Odt] 8 mg PO BID MDD 3 tabs 08/14/17 12/29/17 Polyethylene Glycol 3350 [Miralax] 17 gm PO DAILY PRN 08/14/17 12/29/17 Sennosides [Senna] 3 tab PO BID PRN MDD taking 3/2 08/14/17 12/29/17 tabs Albuterol Sulf [Ventolin Hfa 2 puffs INH Q4HR PRN 09/16/17 12/29/17 Inhaler] Budesonide/Formoterol Fumarate 2 puffs INH BID 09/16/17 12/29/17 [Symbicort 160-4.5 Mcg Inhaler] fentaNYL [Fentanyl 25mcg patch] 50 mcg TOP DAILY 09/16/17 12/29/17 Ipratropium/Albuterol [Duoneb] 1 inh INH Q6HR PRN 11/03/17 12/29/17 Loperamide [Imodium] 2 mg PO Q4HR PRN 11/03/17 12/29/17 Phenazopyridine [Pyridium] 100 - 200 mg PO TID PRN 11/25/17 12/29/17 Alprazolam [Xanax] 0.25 mg PO Q6HR PRN 12/15/17 12/29/17 Dexamethasone 1 mg PO DAILY 12/29/17 12/29/17 - Allergies Allergies/Adverse Reactions: Allergies Allergy/AdvReac Type Severity Reaction Status Date / Time codeine Allergy Itching Verified 02/09/16 12:11 Review of Systems - Constitutional Constitutional: reports: Fatigue. denies: Fever, Chills - Eyes Eyes: reports: Vision loss, Corrective lenses - Ears, Nose & Throat Ears, Nose & Throat: reports: Dry mouth - Cardiovascular Cardiovascular: reports: Decr. exercise tolerance - Respiratory Respiratory: reports: SOB at rest (has improved), SOB with exertion - Gastrointestinal Gastrointestinal: reports: Abdominal pain, Nausea (managed with BID ondansetron ; improved last few days), Early satiety. denies: Constipation (going 3-5 times a day soft/formed), Reflux/heartburn - Genitourinary Genitourinary: reports: Frequency, Urgency - Musculoskeletal Musculoskeletal: reports: Muscle weakness (is walking and doing better; dizzyness improved; starting to sit and do dishes feeling like contributing), Assistive devices (has walker for longer distances) - Integumentary Integumentary: reports: Dryness - Neurological Neurological: reports: General weakness, Memory problems (does get overwhelmed at times; some STM) - Psychiatric Psychiatric: reports: Depression (feeling more positive), Anxiety (has found intermittent alprazalom helpful) - All Other Systems All Other Systems: reports: Reviewed and negative Physical Exam - Vital Signs Temperature: 97.1 C Pulse Rate: 85 Respiratory Rate: 18 O2 Saturation: 92 (ra @ rest) Blood Pressure: 128/72 - Physical Exam General Appearance: positive: No acute distress, Alert Eyes Bilateral: positive: Normal inspection ENT: positive: No signs of dehydration Neck: positive: No JVD, Trachea midline Cardiovascular: positive: Regular rate & rhythm Respiratory: positive: Diminished throughout. negative: Wheezes, Rales, Rhonchi Abdomen: positive: Soft, Nml bowel sounds, Tenderness, Guarding Skin: positive: Pallor, Dryness Extremities: positive: No pedal edema Neurologic/Psychiatric: positive: Oriented x3, Mood/affect nml Palliative Care - POLST Patient has POLST: Yes POLST Status: DNR, Selective Treatment Pain: Pain improved, Location (abdominal; deep in pelvis; radiates across lower back; worsens just prioir to voiding/bowel movement; on fentanyl 50 mcg; decreased use of hydrocodone 4/tabs 24hours) Tiredness/Fatigue: Moderate (4-6) Drowsiness/Sedation: Mild (1-3) Nausea: Moderate (4-6) (still needs antiemetics; suspect it is opioid induced) Depression: Mild (1-3) Anxiety: Moderate (4-6) Dyspnea: Moderate (4-6) (with activity; needs neb first thing in AM) Anorexia: Mild (1-3) Sleep: Variable sleep pattern Constipation: Yes, Opoid induced, Managed (using 3 senna am/2 pm with good control) Feelings of wellbeing/Perceived Quality of Life: Fair, Acceptable, Improved Impression and Recommendations - Palliative Care Impression: This is a rosa m 67-year-old woman with complex history regarding her stage IV squamous carcinoma, urinary stent for obstruction, and ongoing fluctuating health. Her pain is currently controlled on fentanyl 50 mcg patch, but still is experiencing symptoms most likely attributable to her stent. Palliative care to continue to provide support for pain and symptom management and coordination of care. Recommendations/Counseling Done: 1. Pain of neoplastic origin. Patient's use of breakthrough pain has steadily decreased, and she is being fairly well controlled on her fentanyl 50 mcg patch. She does have underlying nausea most likely attributed to her sensitivities to opioids, ondansetron twice daily is providing control. 2. Anorexia. Patient responded well again to the dexamethasone, she is eating and drinking again, will try and titrate back to 1 mg every morning 2 weeks. She will reinstate to 2 mg if ineffective. 3. Anxiety disorder. She is doing much better now that she is feeling better. She still has ongoing intermittent anxiety, she did poorly on lorazepam but has responded well on intermittent alprazolam. She only uses it for rescue dosing. 4. Depression. Patient is receiving support from medical palliative care social insurance adviser, she is able to do more which has improved her feelings of self- worth, counseling to continue regarding normalize her feelings of grief and loss. 5. Stage IV squamous cell carcinoma of the cervix. Patient has completed her chemotherapy/radiation again with goal to improve quality and quantity of life recognizing it is a palliative intervention. She does have follow-up in January with Dr. Ruiz. 6. Urinary stent placement. Patient continues to struggle with frequency, intermittent discomfort, and pain symptoms related most likely to stent. She is weighing benefits and burdens plan regarding stent, will make contact with Dr. Givens's office as has no planned follow up. Relayed often urology do check in regularly on placement and/or replace on schedule, they have no information on appointments. 7.Fatigue. Patient reports improved energy with use of dexamethasone, is able to ambulate with minimal symptoms of dizziness. Se cannot tolerate prolonged periods of standing, but is able to help with dishes from sitting position. She is progressing her activity, which has improved her quality of life. [employer] button, are sending it for service, so patient can be alone safely and have more independence. Time Spent: 30 minutes with greater than 50% of this done in counseling coordination of care follow-up and pain management and anticipatory guidance
== END 2017-12-29 12:44 | disposition home or self-care (01) ==
LOC: PC 12:43
PROVIDERS: ATTEND Nurse Practitioner Adult Health
DX: Z51.5 Encounter for palliative care (principal); G89.3 Neoplasm related pain (acute) (chronic); C53.9 Malignant neoplasm of cervix uteri, unspecified; R63.0 Anorexia; F41.9 Anxiety disorder, unspecified; F32.9 Major depressive disorder, single episode, unspecified; Z96.0 Presence of urogenital implants; R11.0 Nausea; M62.81 Muscle weakness (generalized); K59.03 Drug induced constipation; T40.2X5D Adverse effect of other opioids, subsequent encounter; Z79.891 Long term (current) use of opiate analgesic; Z66 Do not resuscitate
CPT/HCPCS: 99348

== ENCOUNTER 2018-01-04 08:00 | Outpatient (CLI) | payer MEDICARE, MEDICAID ==
[2018-01-04 13:15] LABS: BASOPHILS % (AUTO) 0.2 %; EOSINOPHILS # (AUTO) 0.2 10^3/uL (0.0-0.7); EOSINOPHILS % (AUTO) 1.4 %; LYMPHOCYTES # (AUTO) 0.3 10^3/uL (1.5-3.5); MEAN CORPUSCULAR HEMOGLOBIN 28.3 pg (27.0-31.0); MEAN CORPUSCULAR HGB CONC 32.2 g/dL (32.0-36.0); MEAN CORPUSCULAR VOLUME 87.9 fL (81.0-99.0); MEAN PLATELET VOLUME 8.2 fL (7.9-10.8); MONOCYTES # (AUTO) 1.1 10^3/uL (0.0-1.0); MONOCYTES % (AUTO) 7.9 %; NEUTROPHILS # (AUTO) 12.7 10^3/uL (1.5-6.6); NEUTROPHILS % (AUTO) 88.5 %; PLT - PLATELET COUNT 359 10^3/uL (130-450); RED BLOOD COUNT 4.25 10^6/uL (4.20-5.40); RED CELL DISTRIBUTION WIDTH 15.7 % (12.0-15.0); WHITE BLOOD COUNT 14.3 x10^3/uL (4.8-10.8)
[2018-01-04 13:20] LABS: BILIRUBIN,URINE NEGATIVE (NEGATIVE); GLUCOSE, URINE (UA) NEGATIVE (NEGATIVE); KETONES,URINE (UA) NEGATIVE (NEGATIVE); LEUKOCYTE ESTERASE, URINE LARGE (NEGATIVE); NITRITE,URINE NEGATIVE (NEGATIVE); OCCULT BLOOD,URINE MODERATE (NEGATIVE); PH,URINE 5.5 PH (5.0-7.5); PROTEIN,URINE 30 mg/dL (NEGATIVE); UROBILINOGEN,URINE 0.2 (NORMAL) E.U./dL (NORMAL)
[2018-01-04 13:25] LABS: CLARITY,URINE SL. CLOUDY (CLEAR)
[2018-01-04 14:46] LABS: BACTERIA,URINE Few /HPF (None Seen); SQUAMOUS EPITHELIAL CELL,UR RARE Squamous (<= Few); YEAST,URINE PRESENT
[2018-01-04 15:29] LABS: CALCIUM 9.7 mg/dL (8.5-10.3)
== END 2018-01-04 08:01 | disposition home or self-care (01) ==
LOC: LAB.N 08:00
PROVIDERS: ATTEND Nurse Practitioner Adult Health
DX: Z79.899 Other long term (current) drug therapy (principal); R30.0 Dysuria
CPT/HCPCS: 36415; 80048; 81001; 81003; 85025; 87086

== ENCOUNTER 2018-01-12 10:00 | Outpatient (CLI) | payer MEDICARE, MEDICAID ==
--- NOTE | 2018-01-12 18:46 | CONSULTATION NOTE ---
Palliative Care Follow Up - Referral Referring Provider: Laurel HYDE Time of Visit: 10:00-10:45 Referral setting: Home (Patient is seen in her home setting secondary is considerable and taxing effort for the patient to leave the home, she has had ongoing frequent urination, is afraid to leave the home secondary to incontinence and recurrent pain) Referral Reason: Stage IV Cervical Cancer with bladder wall invasion - Information Sources Records reviewed: Previous records reviewed History/Review of Systems obtained from: Patient Exam limitations: No limitations - History of Present Illness Update Brief HPI Update: This is a rosa m 67-year-old woman who has 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 She has a left ureteral stent placed secondary to her cancer, she is also had a right kidney removed. She is status post both chemo/radiation. She has had increase in her abdominal pain, reports its deep and somewhat searing. It is also influenced by her increased frequency still containing need to go every 30-45 minutes, it is a feeling of pressure and when she does urinate is quite painful. She did show positive for greater than 100,000 for yeast, she did receive 1 week's worth of Diflucan and 100 mg, she was better able to tolerate it at this point in time, but reports very little improvement. She has been on fentanyl 50 mcg, but has increased her oxycodone use to 10 tabs in 24 hours. She reports she is had not exacerbation of her pain. She does not present with fever chills or systemic signs of infection, is most likely attributed to the stent as far as her dysuria , and concerned certainly about progressive disease for her underlying description of pain and distress. She is somewhat suspect as well, did discuss perhaps getting earlier evaluation, she wants to wait until her appointment on . She does present in good spirits today though despite her acute pain. She does present with pain behaviors frequently shifting. She does engage, she reports her depression and anxiety are currently well controlled, she is eating better, though she has not been keeping regular weights. Social History - Living Situation Living arrangement: At home Living Situation: With family (Patient lives with daughter and her family, Dana is her main caregiver, and applying to be her shannan worker. Recently her nieces moved in with her daughter, she very much enjoys the company.) Medications/Allergies - Medications Home Medications: Ambulatory Orders Medication Instructions Recorded Confirmed Fluticasone/Vilanterol [Breo 1 puffs INH DAILY 06/24/16 01/12/18 Ellipta 200-25 Mcg INH] Escitalopram Oxalate 20 mg PO DAILY 08/14/17 01/12/18 HYDROcod/ACETAM 5/325 [[place] 5/325] 1 - 2 ea PO Q4HR PRN MDD 10 tabs 08/14/17 Ondansetron [Ondansetron Odt] 8 mg PO BID MDD 3 tabs 08/14/17 01/12/18 Polyethylene Glycol 3350 [Miralax] 17 gm PO DAILY PRN 08/14/17 01/12/18 Sennosides [Senna] 3 tab PO BID PRN MDD taking 3/2 08/14/17 01/12/18 tabs Albuterol Sulf [Ventolin Hfa 2 puffs INH Q4HR PRN 09/16/17 01/12/18 Inhaler] Budesonide/Formoterol Fumarate 2 puffs INH BID 09/16/17 01/12/18 [Symbicort 160-4.5 Mcg Inhaler] fentaNYL [Fentanyl 25mcg patch] 62.5 mcg TOP DAILY 09/16/17 01/12/18 Ipratropium/Albuterol [Duoneb] 1 inh INH Q6HR PRN 11/03/17 01/12/18 Loperamide [Imodium] 2 mg PO Q4HR PRN 11/03/17 01/12/18 Phenazopyridine [Pyridium] 100 - 200 mg PO TID PRN 11/25/17 01/12/18 Alprazolam [Xanax] 0.25 mg PO Q6HR PRN 12/15/17 01/12/18 Fluconazole [Diflucan] 100 mg PO DAILY MDD 7 days 01/12/18 01/12/18 - Allergies Allergies/Adverse Reactions: Allergies Allergy/AdvReac Type Severity Reaction Status Date / Time codeine Allergy Itching Verified 02/09/16 12:11 Review of Systems - Constitutional Constitutional: reports: Fatigue. denies: Fever, Chills - Eyes Eyes: reports: Vision loss, Corrective lenses - Ears, Nose & Throat Ears, Nose & Throat: reports: Nasal congestion - Cardiovascular Cardiovascular: reports: Decr. exercise tolerance (reports able to more) - Respiratory Respiratory: reports: SOB with exertion (using nebulizzer in AM; oxygen at night ). denies: Cough - Gastrointestinal Gastrointestinal: reports: Abdominal pain, Good appetite (with use of vapor/ cannaboid). denies: Constipation (moving several loose stools/not diarrhea a day), Nausea, Reflux/heartburn - Genitourinary Genitourinary: reports: Dysuria (improved some with diflucan; but continues with urination; going freq. small amounts with some "pushing" to empy), Incontinence (mild/more fearful going to be). denies: Hematuria - Musculoskeletal Musculoskeletal: reports: Muscle weakness (improved; not needing assistive device) - Integumentary Integumentary: reports: Dryness - Neurological Neurological: reports: General weakness, Memory problems (not worsening). denies: Dizziness - Psychiatric Psychiatric: reports: Depression (reports manageable), Anxiety (not needed any breakthrough alprazalom) - Hematologic/Lymphatic Hematologic/Lymphatic: reports: Recurrent infections (last UA with >100,000 yeast) - All Other Systems All Other Systems: reports: Reviewed and negative Physical Exam - Vital Signs Temperature: 97.3 C Pulse Rate: 76 Respiratory Rate: 18 O2 Saturation: 96 (ra @ rest) Blood Pressure: 132/68 - Physical Exam General Appearance: positive: No acute distress, Alert. negative: Anxious Eyes Bilateral: positive: Normal inspection ENT: positive: No signs of dehydration. negative: Oral lesions Neck: positive: No JVD, Trachea midline Cardiovascular: positive: Regular rate & rhythm Respiratory: positive: Diminished throughout Abdomen: positive: Soft, Nml bowel sounds, Tenderness, Guarding Skin: positive: Pallor, Dryness Extremities: positive: Full ROM, No pedal edema Neurologic/Psychiatric: positive: Oriented x3, Mood/affect nml Palliative Care - POLST Patient has POLST: Yes POLST Status: DNR, Selective Treatment Pain: Pain worsening, Location (see HPI) Tiredness/Fatigue: Mild (1-3) Drowsiness/Sedation: None Nausea: None Depression: Mild (1-3) Anxiety: Moderate (4-6) Dyspnea: Moderate (4-6) Anorexia: Mild (1-3) Sleep: Variable sleep pattern (depends if up frequently) Constipation: Yes, Opoid induced, Managed Performance Status: Patient's functional status has improved somewhat, she is able to ambulate without assistive device. She is feeling much more steady, no dizziness. She still gets easily tremorous, but her overall baseline strength is improved. She does need some standby assistance with bathing, but is regaining some independent - Palliative Care Discussion: Patient and I had met by ourselves today, usually were accompanied by the daughter. Patient is concerned her symptoms are related to progressive disease , she is trying to stay focused and in the moment. She actually despite her anxiety has a good attitude towards this, she reports will take things as they come. She is quite grateful to be at her daughter's home, though is also very worried about being a burden. Her goal is to avoid hospitalization, does not want to pursue any further workup, until she meets with Dr. Ruiz on . She is though leaning towards returning to having the nephrostomy tube, she reports her pain was much better controlled, and her quality of life better as not needing to go frequently to the bathroom. Results - Lab Results Lab results reviewed: Yes Impression and Recommendations - Palliative Care Impression: This is a rosa m 67-year-old woman with complex history relating to her stage IV squamous carcinoma, urinary stent for obstruction, and ongoing fluctuating health status. She has not had an exacerbation of her pain, and concerned about progression of disease, patient continues to present with high symptom burden. Palliative care to continue to provide support for pain and symptom management and anticipatory guidance Recommendations/Counseling Done: 1. Pain of neoplastic origin. Patient's use of breakthrough pain has increased dramatically, she is taking 10 hydrocodone 5/acetaminophen 10 325 mg with very poorly controlled pain. Will go ahead and increase her patch to 62.5 mcg, did instruct her daughter to place a 12 mcg patch when she returned home. Patient is instructed to continue to use breakthrough pain medications accordingly, will increase it to 75 if indicated after 2 patch changes 2.Stage IV squamous cell carcinoma of the cervix. Concern about patient's escalating pain, did offer to advocate for early scanning and appointment with Dr. Ruiz, she would very much like To keep her appointment 01/24. With she did agree though if acutely more distressed, or no improvement in her pain management she would be willing to follow-up. 3. Urinary stent placement. Patient continues to struggle with frequency, mild improvement with Diflucan, will extend for 1 more week for full treatment. She is tolerating it much better than last time. She is leaning towards returning back to the nephrostomy, but wants to get information from her oncologist first. 4. Anxiety. She is actually doing fairly well with this despite her increase in pain and suspicion of recurrent disease. Counseling regarding normalizing her feelings, and psychosocial support. 5. Advanced care planning. Patient awaiting her next oncology appointment, will continue to follow for support for palliative care pain and symptom management. Did schedule home visit 2 days after her appointment. Time Spent: 45 minutes with greater than 50% of this done in counseling regarding pain and symptom management, will titrate her pain medications up, instructed to on signs and symptoms to follow-up acutely, anticipatory guidance provided
== END 2018-01-12 10:01 | disposition home or self-care (01) ==
LOC: PC 10:00
PROVIDERS: ATTEND Nurse Practitioner Adult Health
DX: Z51.5 Encounter for palliative care (principal); G89.3 Neoplasm related pain (acute) (chronic); C53.9 Malignant neoplasm of cervix uteri, unspecified; F41.9 Anxiety disorder, unspecified; Z96.0 Presence of urogenital implants; Z90.5 Acquired absence of kidney; R35.0 Frequency of micturition; K59.03 Drug induced constipation; T40.2X5D Adverse effect of other opioids, subsequent encounter; Z79.891 Long term (current) use of opiate analgesic; Z66 Do not resuscitate
CPT/HCPCS: 99349

== ENCOUNTER 2018-01-21 21:04 | Emergency (ER) | payer MEDICARE, MEDICAID ==
[2018-01-21] MEDS ORDERED: SODIUM CHLORIDE 0.9% 1,000 ML IV ONE (21:22)
[2018-01-21] MEDS ORDERED: ONDANSETRON 4 MG/2 ML VIAL IVP STA (21:22)
[2018-01-21] MEDS ORDERED: MORPHINE 10 MG/ML VIAL IVP STA ×2 (21:22→22:39)
[2018-01-21 21:32] LABS: BASOPHILS % (AUTO) 0.2 %; EOSINOPHILS # (AUTO) 0.3 10^3/uL (0.0-0.7); EOSINOPHILS % (AUTO) 2.3 %; HGB - HEMOGLOBIN 11.4 g/dL (12.0-16.0); LYMPHOCYTES # (AUTO) 0.4 10^3/uL (1.5-3.5); LYMPHOCYTES % (AUTO) 3.4 %; MEAN CORPUSCULAR HEMOGLOBIN 26.8 pg (27.0-31.0); MEAN CORPUSCULAR HGB CONC 31.4 g/dL (32.0-36.0); MEAN CORPUSCULAR VOLUME 85.5 fL (81.0-99.0); MEAN PLATELET VOLUME 7.3 fL (7.9-10.8); MONOCYTES # (AUTO) 0.7 10^3/uL (0.0-1.0); MONOCYTES % (AUTO) 6.1 %; NEUTROPHILS # (AUTO) 10.4 10^3/uL (1.5-6.6); PLT - PLATELET COUNT 400 10^3/uL (130-450); RED BLOOD COUNT 4.26 10^6/uL (4.20-5.40); RED CELL DISTRIBUTION WIDTH 15.8 % (12.0-15.0); WHITE BLOOD COUNT 11.8 x10^3/uL (4.8-10.8)
--- NOTE | 2018-01-21 21:35 | ED Physician Documentation ---
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 According to patient and family patient last had her chemo done at that beginning of the month. patient is also complaining of dysuria, and increased urinary frequency. patient has been on fentanyl patches, and oral opiates but she reports they are not covering all of her pain. Patient has follow up in three days. Review of Systems Constitutional: denies: Fever, Chills Eyes: reports: Reviewed and negative Ears: reports: Reviewed and negative Nose: reports: Reviewed and negative Cardiac: denies: Chest pain / pressure, Palpitations Respiratory: denies: Dyspnea GI: reports: Abdominal Pain, Nausea. 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: Other : Incontinence, Other HEENT: Other Psych: Depression, Anxiety, Panic attacks Musculoskeletal: None Derm: None - Past Surgical History Past Surgical History: Yes General: Bowel surgery, Colonoscopy Neuro: Other - Present Medications Home Medications: Ambulatory Orders Medication Instructions Recorded Confirmed Fluticasone/Vilanterol [Breo 1 puffs INH DAILY 06/24/16 01/12/18 Ellipta 200-25 Mcg INH] Escitalopram Oxalate 20 mg PO DAILY 08/14/17 01/12/18 HYDROcod/ACETAM 5/325 [[place] 5/325] 1 - 2 ea PO Q4HR PRN MDD 10 tabs 08/14/17 Ondansetron [Ondansetron Odt] 8 mg PO BID MDD 3 tabs 08/14/17 01/12/18 Polyethylene Glycol 3350 [Miralax] 17 gm PO DAILY PRN 08/14/17 01/12/18 Sennosides [Senna] 3 tab PO BID PRN MDD taking 3/2 08/14/17 01/12/18 tabs Albuterol Sulf [Ventolin Hfa 2 puffs INH Q4HR PRN 09/16/17 01/12/18 Inhaler] Budesonide/Formoterol Fumarate 2 puffs INH BID 09/16/17 01/12/18 [Symbicort 160-4.5 Mcg Inhaler] fentaNYL [Fentanyl 25mcg patch] 62.5 mcg TOP DAILY 09/16/17 01/12/18 Ipratropium/Albuterol [Duoneb] 1 inh INH Q6HR PRN 11/03/17 01/12/18 Loperamide [Imodium] 2 mg PO Q4HR PRN 11/03/17 01/12/18 Phenazopyridine [Pyridium] 100 - 200 mg PO TID PRN 11/25/17 01/12/18 Alprazolam [Xanax] 0.25 mg PO Q6HR PRN 12/15/17 01/12/18 Fluconazole [Diflucan] 100 mg PO DAILY MDD 7 days 01/12/18 01/12/18 Phenazopyridine HCl [Pyridium] 200 mg PO TID PRN #6 tablet 01/21/18 Sulfamethox/Trimeth 800/160 1 each PO BID #14 tablet 01/21/18 [Bactrim Ds 800/160] oxyCODONE ER [OxyCONTIN] 10 mg PO Q12H #14 tablet 01/21/18 - Allergies Allergies/Adverse Reactions: Allergies Allergy/AdvReac Type Severity Reaction Status Date / Time codeine Allergy Itching Verified 01/21/18 21:10 - Social History Does the pt smoke?: Yes Smoking Status: Current every day smoker Does the pt drink ETOH?: No - Immunizations Immunizations are current?: Yes - POLST Patient has POLST: Yes PD ED PE NORMAL - Vitals Vital signs reviewed: Yes - General General: Alert and oriented X 3 - HEENT HEENT: Atraumatic - Neck Neck: Supple, no meningeal sign - Cardiac Cardiac: RRR, No murmur - Respiratory Respiratory: No respiratory distress - Derm Derm: Normal color, Warm and dry - Extremities Extremities: No deformity - Neuro Neuro: Alert and oriented X 3, No motor deficit Eye Opening: Spontaneous Motor: Obeys Commands Verbal: Oriented GCS Score: 15 PD ED PE EXPANDED - General General: Alert, In Pain - HEENT HEENT: Dry mucous membranes - Abdomen Abdomen: Tender to palpation, Periumbilical, Suprapubic. No: Rebound, Guarding - Female Female : Normal external. No: Skin lesions, Vaginal Discharge - Psych Psych: Anxious Results - Vitals Vitals: Vital Signs - 24 hr 01/21/18 01/21/18 01/21/18 21:08 22:55 23:36 Temperature 36.0 C L 36.8 C 36.6 C Heart Rate 102 H 83 72 Respiratory 20 20 16 Rate Blood Pressure 125/73 129/65 136/67 H O2 Saturation 98 97 98 Oxygen O2 Source Room air - Labs Labs: Laboratory Tests 01/21/18 01/21/18 01/21/18 21:22 21:22 21:50 WBC 11.8 H RBC 4.26 Hgb 11.4 L Hct 36.5 L MCV 85.5 MCH 26.8 L MCHC 31.4 L RDW 15.8 H Plt Count 400 MPV 7.3 L Neut # 10.4 H Lymph # 0.4 L Wilson # 0.7 Eos # 0.3 Baso # 0.0 Absolute Nucleated RBC 0.00 Nucleated RBC % 0.0 Sodium 137 Potassium 3.9 Chloride 99 L Carbon Dioxide 29 Anion Gap 9.0 BUN 15 Creatinine 0.9 Estimated GFR (MDRD) 63 L Glucose 148 H Calcium 9.1 Total Bilirubin 0.4 AST 16 ALT 11 Alkaline Phosphatase 76 Total Protein 7.0 Albumin 3.0 L Globulin 4.0 Albumin/Globulin Ratio 0.8 L Lipase 21 L Urine Color LT. YELLOW Urine Clarity CLOUDY Urine pH 6.0 Ur Specific [place] 1.015 Urine Protein 100 H Urine Glucose (UA) NEGATIVE Urine Ketones NEGATIVE Urine Occult Blood LARGE H Urine Nitrite NEGATIVE Urine Bilirubin NEGATIVE Urine Urobilinogen 0.2 (NORMAL) Ur Leukocyte Esterase LARGE H Urine RBC 6-10 H Urine WBC >25 H Urine WBC Clumps PRESENT Ur Squamous Epith Cells RARE Squamous Urine Bacteria Moderate H Urine Yeast PRESENT Ur Microscopic Review Not Reportable Urine Culture Comments INDICATED PD MEDICAL DECISION MAKING - ED course Complexity details: reviewed old records, reviewed results, re-evaluated patient , considered differential, d/w patient, d/w family ED course: Patient was seen and examined at bedside. IV access was gained and labs were drawn. patient was treated with a fluid bolus, morphine and zofran. When patient's labs came back patient was found to have a urinary tract infection. patient was treated with additional pain medications, bactrim, pyridium. patient was able to tolerate PO without difficulty. patient had pallative care set up with daily visit. Prescriptions were written. Patient required no further work up and was stable for discharge with outpatient follow up. Departure - Departure Disposition: Home, Self Care Clinical Impression: UTI (urinary tract infection), Abdominal pain Condition: Stable Instructions: ED UTI Cystitis Female Follow-Up: Laurel Mcfarland ARNP [Primary Care Provider] - Within 3 Days Prescriptions: oxyCODONE ER [OxyCONTIN] 10 mg PO Q12H #14 tablet Phenazopyridine HCl [Pyridium] 200 mg PO TID PRN #6 tablet PRN Reason: dysuria Sulfamethox/Trimeth 800/160 [Bactrim Ds 800/160] 1 each PO BID #14 tablet Comments: Your symptoms are at least in part being caused by a urinary tract infection. You are being started on bactrim and pyridium. It is important that you stay well hydrated. You should follow up with your doctor this week. You should return to the emergency department for fevers, chills, new, worsening or uncontrollable symptoms. Discharge Date/Time: 01/21/18 23:45
[2018-01-21 21:43] LABS: ALBUMIN/GLOBULIN RATIO 0.8 (1.0-2.2); BILIRUBIN,TOTAL 0.4 mg/dL (0.2-1.0); CALCIUM 9.1 mg/dL (8.5-10.3); CREATININE 0.9 mg/dL (0.4-1.0)
[2018-01-21 21:59] LABS: BILIRUBIN,URINE NEGATIVE (NEGATIVE); GLUCOSE, URINE (UA) NEGATIVE (NEGATIVE); KETONES,URINE (UA) NEGATIVE (NEGATIVE); LEUKOCYTE ESTERASE, URINE LARGE (NEGATIVE); NITRITE,URINE NEGATIVE (NEGATIVE); OCCULT BLOOD,URINE LARGE (NEGATIVE); PROTEIN,URINE 100 mg/dL (NEGATIVE); UROBILINOGEN,URINE 0.2 (NORMAL) E.U./dL (NORMAL)
[2018-01-21 22:01] LABS: CLARITY,URINE CLOUDY (CLEAR)
[2018-01-21 22:19] LABS: BACTERIA,URINE Moderate /HPF (None Seen); SQUAMOUS EPITHELIAL CELL,UR RARE Squamous (<= Few); WBC CLUMPS,URINE PRESENT
[2018-01-21 22:20] LABS: YEAST,URINE PRESENT
[2018-01-21] MEDS ORDERED: SMX/TMP 800MG/160MG 10ML 20 ML in DEXTROSE 5% 500 ML IV ONE (22:20)
[2018-01-21] MEDS ORDERED: FLUCONAZOLE 100 MG TABLET PO STA (22:21)
[2018-01-21] MEDS ORDERED: PHENAZOPYRIDINE 100 MG TABLET PO STA (22:21)
[2018-01-21] MEDS ORDERED: SULFAMETH/TRIMETH DS 800/160 MG TABLET PO STA (22:50)
[2018-01-21 23:37] VITALS: BP 136/67
== END 2018-01-21 23:45 | disposition home or self-care (01) ==
LOC: ED 21:04
DX: N39.0 Urinary tract infection, site not specified (principal); R10.9 Unspecified abdominal pain; C53.9 Malignant neoplasm of cervix uteri, unspecified; E78.00 Pure hypercholesterolemia, unspecified; F17.200 Nicotine dependence, unspecified, uncomplicated; Z92.21 Personal history of antineoplastic chemotherapy
CPT/HCPCS: 80053; 81001; 83690; 85025; 87086; 96361; 96374; 96376; 99283; A9270; J3490; 81003

== ENCOUNTER 2018-02-01 19:05 | Outpatient (CLI) | payer MEDICARE, MEDICAID ==
--- NOTE | 2018-02-01 19:10 | CONSULTATION NOTE ---
Palliative Care Follow Up - Referral Referring Provider: Laurel HYDE Time of Visit: 9967-5266 Referral setting: Home (It is a taxing considerable effort for the patient to leave the home secondary to pain and fatigue. Home visit also made to facilitate treatment plan and evaluation) Referral Reason: Stage IV Cervical Cancer/UTI/Pain of neoplastic origin - Information Sources Records reviewed: Previous records reviewed (hospital records) History/Review of Systems obtained from: Patient, Family (daughter Dana not able to be at visit but reviewed at visit on phone concerns) Exam limitations: Clinical condition (patient with increased confusion/euphoria ; poor short term memory) - History of Present Illness Update Brief HPI Update: This is a 67-year-old woman with known stage IV cervical cancer with a mass involving the lower uterine segment/cervix and continuous of bladder wall. She has a left ureteral stent placement secondary to cancer, she also has a right kidney removed. She is status post both chemo radiation. She has been over the last several weeks had increasing pain, dysuria, and positive yeast in her urine. She has been treated with Diflucan, but ended up with an acute pain crisis, she had been recommended to go in for follow-up previous to this but is quite fearful of prolonged hospitalizations. She was so finally admitted on with uncontrolled pain, and another positive urine. In her workup a KUB /CT did show "loss of fat planes the lower uterus from posterior urinary bladder wall suggestive of direct invasion". It is thought she most likely has progressive cancer. Department despite her acute pyelonephritis, she was found again to have fungal infection, she continues on her Diflucan. She has tolerated this poorly in the past, but has done better. 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 With morphine 30 mg immediate release for breakthrough pain. I find the patient actually overmedicated today, she is somewhat giddy and euphoric, pressured speech. She does admit to feeling disassociated, she is not lethargic or sedated, but her pupils are pinpoint, has not needed any medications for breakthrough pain, they did use 1 MS 30 mg yesterday for which she slept fairly solid for several hours. I suspect with her acute infection better controlled, her pain level has come down, though she does report dysuria has started just previous to her discharge from the hospital. She had been on Pyridium there. I did encourage her to restart her is those. She is somewhat diaphoretic. She also presents with hypoxia at 87-80%, did put her on some oxygen with a result that 94%. She has been pushing fluids, her appetite is improved, her functional status is improved as well she is able to ambulate short distances in the home. She has returned to frequent urinating again. Social History - Living Situation Living arrangement: At home Living Situation: With family (Patient lives at home with daughter, her and 5-year-old son. There is also another niece and her child in the home. Dana her daughter oversees patient's care, but has many responsibilities. She is also in the process of becoming her [employer] P[employer] worker) Medications/Allergies - Medications Home Medications: Ambulatory Orders Medication Instructions Recorded Confirmed Fluticasone/Vilanterol [Breo 1 puffs INH DAILY 06/24/16 02/01/18 Ellipta 200-25 Mcg INH] Escitalopram Oxalate 20 mg PO DAILY 08/14/17 02/01/18 Ondansetron [Ondansetron Odt] 8 mg PO BID MDD 3 tabs 08/14/17 02/01/18 Polyethylene Glycol 3350 [Miralax] 17 gm PO DAILY PRN 08/14/17 02/01/18 Sennosides [Senna] 2 tab PO BID PRN 08/14/17 02/01/18 Albuterol Sulf [Ventolin Hfa 2 puffs INH Q4HR PRN 09/16/17 02/01/18 Inhaler] Budesonide/Formoterol Fumarate 2 puffs INH BID 09/16/17 02/01/18 [Symbicort 160-4.5 Mcg Inhaler] Ipratropium/Albuterol [Duoneb] 1 inh INH Q6HR PRN 11/03/17 02/01/18 Phenazopyridine [Pyridium] 100 - 200 mg PO TID PRN 11/25/17 02/01/18 Alprazolam [Xanax] 0.25 mg PO Q6HR PRN 12/15/17 02/01/18 Fluconazole [Diflucan] 200 mg PO DAILY MDD 7 days 01/12/18 01/12/18 Dexamethasone 2 mg PO DAILY 02/01/18 02/01/18 Methadone HCl 15 mg PO BID 02/01/18 02/01/18 Morphine Ir [Ms Ir] 15 - 30 mg PO Q4HR PRN 02/01/18 02/01/18 Naloxone HCl [Narcan] 1 inh SHANNA .1X PRN 02/01/18 02/01/18 amLODIPine [Norvasc] 5 mg PO DAILY 02/01/18 02/01/18 - Allergies Allergies/Adverse Reactions: Allergies Allergy/AdvReac Type Severity Reaction Status Date / Time codeine Allergy Itching Verified 01/21/18 21:10 Review of Systems - Constitutional Constitutional: reports: Fatigue, Weight loss, Other (diaphoretic). denies: Fever, Chills - Eyes Eyes: reports: Vision loss, Corrective lenses - Ears, Nose & Throat Ears, Nose & Throat: reports: Dry mouth - Cardiovascular Cardiovascular: reports: Exertional dyspnea, Decr. exercise tolerance. denies: Chest pain - Respiratory Respiratory: reports: SOB with exertion, Other (felt needed oxygen last night; was confused and unable to apply correctly). denies: Cough, SOB at rest - Gastrointestinal Gastrointestinal: reports: Abdominal pain (describes pain in "urethra"; deep in pelvic area; 0/10 currently), Poor appetite, Early satiety. denies: Constipation, Rectal bleeding, Nausea - Genitourinary Genitourinary: reports: Dysuria (started again just prior to discharge from hospital; now up frequently every hour not as intense but still concerned), Frequency - Musculoskeletal Musculoskeletal: reports: Back pain, Muscle weakness (ambulating in house without assistive device) - Integumentary Integumentary: reports: Dryness - Neurological Neurological: reports: General weakness, Memory problems, Other (pressured speech). denies: Dizziness - Psychiatric Psychiatric: reports: Depression (worries about stress put on family; doesn't like to share as "always bad news" and everyone changes everything up), Anxiety (worried about pending information regarding cancer; scheduled for scan tomorrow ), Hallucinations (daughter called yesterday patient with significant hallucinations/talking to people not there; running around the house at that time had hold afternoon dose of methadone) - Hematologic/Lymphatic Hematologic/Lymphatic: reports: Recurrent infections (UA always positive but last few cultures only grew out candidiasis) - All Other Systems All Other Systems: reports: Reviewed and negative Physical Exam - Vital Signs Temperature: 95.8 C Pulse Rate: 62 Respiratory Rate: 18 O2 Saturation: 87 (ra @ rest; 0xygen applied 94 on 2 liters) Blood Pressure: 128/67 - Physical Exam General Appearance: positive: Other (very giddy and euphoric) Eyes Bilateral: positive: Other (pupils pinpoint) ENT: positive: Other (has dentures in) Neck: positive: Trachea midline. negative: Lymphadenopathy (R), Lymphadenopathy (L) Cardiovascular: positive: Regular rate & rhythm Respiratory: positive: Diminished throughout (baseline), Other (patient found to be hypoxic; not lethargic but does report fatigue). negative: Wheezes, Rales , Rhonchi Abdomen: positive: Soft, Nml bowel sounds, Tenderness, Guarding Skin: positive: Pallor, Diaphoresis Extremities: positive: No pedal edema, Other (ambulating in room; slightly unsteady) Neurologic/Psychiatric: positive: Mood/affect nml, Disoriented to time, Weakness , Other (Patient presents with very short-term memory issues today, worse than baseline. Patient does report feeling somewhat disassociated, but very "happy" , difficulty concentrating on conversation and staying on task. Patient does not present as lethargic, respiratory rate 18, but hypoxic when off oxygen.) Palliative Care - POLST Patient has POLST: Yes POLST Status: DNR, Selective Treatment (daughter at hospital with another family member; unable to locate copy of POLST or DPOA/will obtain as [facility] records report no copy either) Pain: Pain improved (Patient was on IV morphine at [facility], transitioned to methadone 20 mg 3 times daily, and conversation with daughter yesterday does appear overmedicated, had her hold afternoon dose. Patient had one episode of breakthrough pain, took 1 morphine, and slept for 6 hours. Unable to tell from records how long has been on the methadone, will titrate back, decrease morphine dose and increase as patient without signs or symptoms of over medication) Tiredness/Fatigue: Moderate (4-6) (reports feeling better overall) Drowsiness/Sedation: Mild (1-3) Nausea: Mild (1-3) Depression: Mild (1-3) Anxiety: Moderate (4-6) Dyspnea: Moderate (4-6) Anorexia: Mild (1-3) Sleep: Sleeps well (though up to void) Constipation: Yes, Opoid induced, Managed Performance Status: Patient is quite sedentary, does spend most of her time in bed in recliner. She is able to self-feed, do some small meal prep. She is able to ambulate independently to the bathroom. I would put her at a PPS of 50% Results - Lab Results Lab results reviewed: Yes Impression and Recommendations - Palliative Care Impression: This is a 67-year-old woman with stage IV cervical cancer with extension into the bladder wall posteriorly. She recently hospitalized for acute pain crisis, and infection attributed to yeast. She most likely has progression of her cancer, has follow-up PET scan tomorrow, will determine next steps. Patient currently presents with symptoms of overmedication, pain currently controlled, unfortunately is developing symptoms of dysuria again. Palliative care to provide support and oversight and anticipatory guidance. Recommendations/Counseling Done: 1. Pain of neoplastic origin. Patient's pain currently controlled, but shows symptoms of overmedication, this is concern with methadone. Will decrease dosing to methadone 15 mg twice daily, will provide prescription for morphine 15 mg immediate release tabs, can use 1-2 every 4 hours as needed breakthrough pain. Will titrate up after patient's symptoms of over medication resolved. Also instructed daughter and son-in-law regarding holding dose if patient is lethargic, also ordered Narcan to have available. 2. UTI. Is thought to be fungal infection, she is currently completing her Diflucan 200 mg this is to be completed 64. She is complaining of dysuria, will have her restart Pyridium, as this is discontinued on discharge from hospital. She is also waiting stent replacement. Of note it was thought the stent was in place and not contributing to her pain syndrome. 3. Hypoxia. I suspect this is as symptom of overmedication, her respiratory status is been stable as far as her COPD. I did put her back on her oxygen at 2 L, requested she wear this on an ongoing basis. Breath sounds are clear, no wheezing, she is using her inhalers, and her nebulizer in the a.m. 4. Tremors. These continue to fluctuate, I did report some myoclonic contortions unclear if these are hallucinations are a side effect of medications. Report this has not repeated today. 5. Altered mental status. Suspect this is related to her current medication dosing, patient is afebrile, though somewhat diaphoretic. Reviewed signs and symptoms with daughter over phone to follow-up urgently if needed. 6. Stage IV cervical cancer. In reviewing her hospital records, the CT KUB did show bladder wall thickness on the left and the pelvic mass stable over time with reference to prior CT scans but there was concern for invasion, She is scheduled for PET scan tomorrow which will further inform treatment and treatment options. She remains quite anxious she does understand the seriousness of her illness and it is not curative and context of her prognosis. Time Spent: 60 minutes with greater than 50% of this done in counseling regarding pain and symptom management titration of pain medications instruction for family for safety and anticipatory guidance provided. Patient is due to see primary care on 02 05, will send request to do EKG at that point in time.
== END 2018-02-01 19:06 | disposition home or self-care (01) ==
LOC: PC 19:05
PROVIDERS: ATTEND Nurse Practitioner Adult Health
DX: Z51.5 Encounter for palliative care (principal); G89.3 Neoplasm related pain (acute) (chronic); C53.9 Malignant neoplasm of cervix uteri, unspecified; C79.11 Secondary malignant neoplasm of bladder; N39.0 Urinary tract infection, site not specified; R09.02 Hypoxemia; J44.9 Chronic obstructive pulmonary disease, unspecified; Z99.81 Dependence on supplemental oxygen; R25.1 Tremor, unspecified; R41.82 Altered mental status, unspecified; K59.03 Drug induced constipation; T40.2X5D Adverse effect of other opioids, subsequent encounter; Z79.891 Long term (current) use of opiate analgesic; F41.9 Anxiety disorder, unspecified; M62.81 Muscle weakness (generalized); Z66 Do not resuscitate
CPT/HCPCS: 99350

== ENCOUNTER → 2018-02-05 | Outpatient (CLI) | payer MEDICARE, MEDICAID | LOC: RT.N 10:45 | PROVIDERS: ATTEND Nurse Practitioner | DX: R06.02 Shortness of breath (principal) | CPT/HCPCS: 93005 ==

== ENCOUNTER 2018-02-09 09:45 | Outpatient (CLI) | payer MEDICARE, MEDICAID ==
--- NOTE | 2018-02-09 13:19 | CONSULTATION NOTE ---
Palliative Care Follow Up - Referral Referring Provider: Laurel HYDE Time of Visit: [id number] Referral setting: Home (It is a taxing considerable effort for the patient to leave the home secondary to fatigue and pain. This is also needed to facilitate treatment plan and family conferencing) Referral Reason: Stage IV Cervical Cancer/Pain of neoplastic origin/Dysuria - Information Sources Records reviewed: Previous records reviewed History/Review of Systems obtained from: Patient, Family (daughter Dana at visit) Exam limitations: Clinical condition (patient with STM issues; anxiety) Social History - Living Situation Living arrangement: At home Living Situation: With family (lives with daughter Dana; distressed with niece/baby moving out; Daughter GLENN caregiver and oversees her mother's care as well as her fathers () who has cancer as well; patient has son in [place]/one in [facility]) Medications/Allergies - Medications Home Medications: Ambulatory Orders Medication Instructions Recorded Confirmed Fluticasone/Vilanterol [Breo 1 puffs INH DAILY 06/24/16 02/09/18 Ellipta 200-25 Mcg INH] Escitalopram Oxalate 20 mg PO DAILY 08/14/17 02/09/18 Ondansetron [Ondansetron Odt] 8 mg PO BID MDD 3 tabs 08/14/17 02/09/18 Polyethylene Glycol 3350 [Miralax] 17 gm PO DAILY PRN 08/14/17 02/09/18 Sennosides [Senna] 2 tab PO BID PRN 08/14/17 02/09/18 Albuterol Sulf [Ventolin Hfa 2 puffs INH Q4HR PRN 09/16/17 02/09/18 Inhaler] Budesonide/Formoterol Fumarate 2 puffs INH BID 09/16/17 02/09/18 [Symbicort 160-4.5 Mcg Inhaler] Ipratropium/Albuterol [Duoneb] 1 inh INH Q6HR PRN 11/03/17 02/09/18 Phenazopyridine [Pyridium] 100 - 200 mg PO TID PRN 11/25/17 02/09/18 Alprazolam [Xanax] 0.25 mg PO Q6HR PRN 12/15/17 02/09/18 Fluconazole [Diflucan] 100 mg PO DAILY MDD 7 days 01/12/18 02/09/18 Dexamethasone 2 mg PO DAILY 02/01/18 02/09/18 Methadone HCl 15 mg PO .AM & PM 02/01/18 02/09/18 Morphine Ir [Ms Ir] 15 - 30 mg PO Q4HR PRN 02/01/18 02/09/18 amLODIPine [Norvasc] 5 mg PO DAILY 02/01/18 02/09/18 Methadone HCl 5 mg PO 1400 MDD titrating 02/09/18 02/09/18 - Allergies Allergies/Adverse Reactions: Allergies Allergy/AdvReac Type Severity Reaction Status Date / Time codeine Allergy Itching Verified 01/21/18 21:10 Review of Systems - Constitutional Constitutional: reports: Fatigue, Diaphoresis, Weight loss - Eyes Eyes: reports: Vision loss, Corrective lenses - Ears, Nose & Throat Ears, Nose & Throat: reports: Dry mouth - Cardiovascular Cardiovascular: reports: Exertional dyspnea, Decr. exercise tolerance, Other ( EKG okay in follow up at PCP). denies: Chest pain - Respiratory Respiratory: reports: SOB with exertion, Other (wearing oxygen). denies: Cough , Wheezing - Gastrointestinal Gastrointestinal: reports: Constipation (BM this am but had been several days), Nausea (controlled currently with ondansetron BID), Early satiety - Genitourinary Genitourinary: reports: Dysuria (finishe lucmonday; now worsening pain and frequency last 24 hours), Incontinence (reports inc. has increased) - Musculoskeletal Musculoskeletal: reports: Stiffness, Limited range of motion, Muscle weakness - Integumentary Integumentary: reports: Dryness - Neurological Neurological: reports: General weakness, Memory problems, Other (awakens somewhat discombobulated but able to reorient; much clearer than last visit) - Psychiatric Psychiatric: reports: Depression (recurrent dx; feeling anxious), Hallucinations (have resolved with decrease in methadone dosing) - Hematologic/Lymphatic Hematologic/Lymphatic: reports: Anemia, Recurrent infections (UTIs) - All Other Systems All Other Systems: reports: Reviewed and negative Physical Exam - Vital Signs Temperature: 97.1 C Pulse Rate: 96 Respiratory Rate: 18 O2 Saturation: 96 (ra @ rest; have oximeter now to monitor) Blood Pressure: 132/64 - Physical Exam General Appearance: positive: Mild distress, Anxious Eyes Bilateral: positive: Normal inspection ENT: positive: No signs of dehydration. negative: Pharyngeal erythema, Oral lesions Neck: positive: No JVD, Trachea midline Cardiovascular: positive: Tachycardia Respiratory: positive: Diminished in bases Abdomen: positive: Soft, Nml bowel sounds, Tenderness, Guarding Skin: positive: Pallor, Dryness Extremities: positive: No pedal edema, Other (more shakey and balance/strength decrease noted in ambulation; tremorous today daughter reports more stressed with recent household changes) Neurologic/Psychiatric: positive: Disoriented to time, Weakness Palliative Care - POLST Patient has POLST: Yes POLST Status: DNR, Selective Treatment Pain: Pain worsening, Location (reports 4-01/11 in groin; had been improved on methadone 15 mg BID with MS for breakthrough using up to 3 tabs; dysuria and frequency has increased last 24 hours; patient without pinpoint pupils; coherent today; no further hallucinations) Tiredness/Fatigue: Moderate (4-6) Drowsiness/Sedation: Mild (1-3) Nausea: None (with scheduled ondansetron) Depression: Moderate (4-6) (with news of recurrence) Anxiety: Severe (7-10) Dyspnea: Moderate (4-6) (mostly with exertion) Anorexia: Mild (1-3) Sleep: Sleeps well Constipation: Yes, Opoid induced, Intermittent constipation Performance Status: Patient still significantly sedentary, does spend most the time in bed or in the recliner. She is able to ambulate short distance to the bathroom, but her gait is more noted to be unsteady today. Her daughter does oversee and assist with bathing. I would put her at a PPS of 50% - Palliative Care Discussion: Unfortunately he was unable to make contact with Dr. Diomedes Ruiz prior to my visit. Patient's understanding is her cancer is back, she is quite adamant she would not accept any kind of surgery, or radiation, she would consider chemotherapy. She would like to see if this would help her with her pain. Her daughter is asking appropriate questions regarding patient's ability to tolerate further treatment or chemotherapy, patient did have multiple hospitalizations in the context of her last treatment cycle. She has had recurrent and life-threatening infections, worried about further depression of her immune system. Her biggest wish for her mom is for focus on comfort, and increased quality of life, and concerned about the impact and if this is going to be of benefit. They are understanding from the oncologist, is that he was going to consult with radiation oncology to see if there is further treatment, and treatment plan. They have not been given any specific chemotherapeutic agents. Counseling provided as far as treatment on second and third line, often this done at a gentler dosing schedule and would need to be weighed in the context of benefit and burden, encouraged to write down questions. Does not currently have a plan/or appointment. Agreed would reach out again to assist with matching goals to medical treatment, patient currently in favor of moving forward with chemo vs comfort/hospice measures. Results - Lab Results Lab results reviewed: Yes Lab and Imaging Results: 02/02 WBC 17.8 Impression and Recommendations - Palliative Care Impression: This is a 67-year-old woman with stage for cervical cancer with known extension of the bladder wall posteriorly. Her recent PET scan does show a right middle lobe pulmonary nodule demonstrating most likely metastatic disease, with a PET scan showing again soft tissue mass involving the cervix and posterior bladder wall with active tumor, as well as her left-sided moderate residual hydronephrosis with a urethral stent. Patient awaiting final treatment plan, is aware of the seriousness of her condition, and now presents with recurrent dysuria increasing her baseline pain. Palliative care to provide support for pain and symptom management as well as support and navigation of her current treatment plan. Recommendations/Counseling Done: 1. Pain of neoplastic origin. Patient currently on methadone 15 mg twice daily , with intermittent morphine 15-30 mg for breakthrough pain, pain has escalated last 24 hours with reintroduction of dysuria. Will go ahead and titrate methadone up, patient does appear to be tolerating at current dosing, they are going to add 5 mg to midday dosing, and we will increase this every 4-5 days to tolerance. Patient encouraged to use adequate morphine for breakthrough pain, daughter does have this available for patient to use easily. 2. Dysuria. Patient did just finished her 200 mg of Diflucan on 02/05. On 02 02 her white count was still elevated at 17.8. Patient reports more frequency increased incontinence presents afebrile. Her vital signs are stable though she is at her baseline tachycardia at 96. She is very anxious regarding the reoccurrence and escalation of the pain, did consult with Dr. Hoffmann of infectious disease, patient's urines always come back with high levels of red and white counts, the last few times has only grown out candidiasis. Reports unclear in the literature as far as how to manage this long-term, recommended to restart Diflucan at 100 mg 7 days, if she does have improvement of symptoms , then put on maintenance dose of 100 mg every other day. This is communicated to the daughter, and prescription was sent off to [facility]. Will evaluate response whether to continue prophylactically. 3. Constipation. Patient has been using senna 2 tabs twice daily, has restarted her MiraLAX, instructed to continue with aggressive bowel program related to her abdominal pain and discomfort, both daughter and patient report understanding. 4. Altered mental status. This does appear to have improved with the titration of her medication, she is doing much better, was not aware of hallucinations until revealed by her daughter. She does report some intermittent confusion, but feels much better overall. We will continue to titrate medication up wane with side effects. 5. Advanced care planning. Long discussion regarding weighing benefits and burdens and decision-making around patient's upcoming treatments. Addressed questions as best could did agree to follow with Dr. Ruiz there is anything else that can be added to the conversation that might be a supportive for them. At this point in time patient is willing and wanting to move forward with chemotherapy, but is very resistant to radiation or surgery. Recommended she wait and hear the benefits and burdens before making up her mind as far as what the oncologist suggested the best course. She does recognize the seriousness of her illness, her daughter has serious concerns about patient's ability to tolerate any kind of treatment or treatment long-term Time Spent: 60 minutes with than 50% of this done in counseling coordination of care evaluating pain is symptom management and anticipatory guidance.
== END 2018-02-09 09:46 | disposition home or self-care (01) ==
LOC: PC 09:45
PROVIDERS: ATTEND Nurse Practitioner Adult Health
DX: Z51.5 Encounter for palliative care (principal); G89.3 Neoplasm related pain (acute) (chronic); C53.9 Malignant neoplasm of cervix uteri, unspecified; C79.11 Secondary malignant neoplasm of bladder; R30.0 Dysuria; K59.03 Drug induced constipation; T40.2X5D Adverse effect of other opioids, subsequent encounter; Z79.891 Long term (current) use of opiate analgesic; F32.9 Major depressive disorder, single episode, unspecified; F41.9 Anxiety disorder, unspecified; Z99.81 Dependence on supplemental oxygen; M62.81 Muscle weakness (generalized); Z66 Do not resuscitate
CPT/HCPCS: 99350

== ENCOUNTER 2018-02-16 11:41 | Outpatient (CLI) | payer MEDICARE, MEDICAID ==
--- NOTE | 2018-02-16 12:06 | CONSULTATION NOTE ---
Palliative Care Follow Up - Referral Referring Provider: Laurel HYDE Time of Visit: 06-14 Referral setting: Home (Is a taxing considerable effort for the patient to leave the home secondary to her pain and increasing fatigue) Referral Reason: Stage IV Cervical Cancer/Pain of neoplastic origin - Information Sources Records reviewed: Previous records reviewed History/Review of Systems obtained from: Patient, Family (Daughter Dana at visit) Exam limitations: Clinical condition (patient with high anxiety and STM issues) - History of Present Illness Update Brief HPI Update: This is a 67-year-old woman with known stage IV cervical cancer with a mass involving the lower uterine segment/cervix and continuous of the bladder wall. She also has a left ureteral stent placement secondary to her cancer, and she is also had right kidney removed. She is status post chemoradiation, she continues to have difficulty with residual cystitis, dysuria, and positive yeast in her urine. She has had her follow-up PET scan that did show progressive disease, and follow-up with her oncologist Dr. Ruiz regarding pending treatment plan, has suggested for her pemetrexed and bevacizumab or palliative/hospice care. Patient had met with him and received the news of progressive disease, patient made quite adamant no further radiation or surgery , but was willing to entertain chemotherapy. Had canceled appointment where he was going to present treatment plan, thinking that it was set up and for infusion. In consult with him we did discuss having palliative care present the options, particularly in light of daughter's concerns which are valid, the patient would be a poor candidate for further chemotherapy given her ongoing decline in functional status, high risk for rehospitalization with sepsis, and goals to really focus on quality of life. Patient is currently on methadone 15 mg twice daily with 5 mg mid day dosing, they had not titrated up since last visit. Patient still feels pain is uncontrolled, but is quite hesitant to take the morphine, given her previous experience with confusion with the higher doses of methadone. She does have some intermittent confusion with the morphine, will go ahead and increase the midday dosing of the methadone to 10 mg, this is acceptable to her. The other question is regarding her severe dysuria, the Diflucan did not improve her symptoms, I had spoken with Dr. Hoffmann regarding another round of Diflucan she did complete 100 mg 7 days without any noticeable improvement. She is on the Pyridium this is not helping either, and the question has resurfaced about whether to return to the nephrostomy tube as given her history this is been the most comfortable she has been. She is up to void every 30 minutes, this does not matter if she is been treated or not treated it has been a chronic problem and quite problematic for her. She is due to see the urologist later today, we did put a list of questions together for her. Social History - Living Situation Living arrangement: At home Living Situation: With family (Patient is living with her daughter and her family, things have calmed down quite a bit, her daughter is her [employer] worker.) Medications/Allergies - Medications Home Medications: Ambulatory Orders Medication Instructions Recorded Confirmed Fluticasone/Vilanterol [Breo 1 puffs INH DAILY 06/24/16 02/16/18 Ellipta 200-25 Mcg INH] Escitalopram Oxalate 20 mg PO DAILY 08/14/17 02/16/18 Ondansetron [Ondansetron Odt] 8 mg PO BID MDD 3 tabs 08/14/17 02/16/18 Polyethylene Glycol 3350 [Miralax] 17 gm PO DAILY PRN 08/14/17 02/16/18 Sennosides [Senna] 2 tab PO BID PRN 08/14/17 02/16/18 Albuterol Sulf [Ventolin Hfa 2 puffs INH Q4HR PRN 09/16/17 02/16/18 Inhaler] Budesonide/Formoterol Fumarate 2 puffs INH BID 09/16/17 02/16/18 [Symbicort 160-4.5 Mcg Inhaler] Ipratropium/Albuterol [Duoneb] 1 inh INH Q6HR PRN 11/03/17 02/16/18 Phenazopyridine [Pyridium] 100 - 200 mg PO TID PRN 11/25/17 02/16/18 Alprazolam [Xanax] 0.25 mg PO Q6HR PRN 12/15/17 02/16/18 Dexamethasone 2 mg PO DAILY 02/01/18 02/16/18 Methadone HCl 15 mg PO .AM & PM 02/01/18 02/16/18 Morphine Ir [Ms Ir] 15 - 30 mg PO Q4HR PRN 02/01/18 02/16/18 amLODIPine [Norvasc] 5 mg PO DAILY 02/01/18 02/16/18 Methadone HCl 10 mg PO 1400 MDD titrating 02/09/18 02/16/18 - Allergies Allergies/Adverse Reactions: Allergies Allergy/AdvReac Type Severity Reaction Status Date / Time codeine Allergy Itching Verified 01/21/18 21:10 Review of Systems - Constitutional Constitutional: reports: Fatigue, Chills (significant episode of chills two days ago at night after up to BR; has had some night sweats; no fever;), Weakness, Poor appetite, Night sweats, Weight loss (has not been tracking "too depressing" but knows down) - Eyes Eyes: reports: Vision loss, Corrective lenses - Cardiovascular Cardiovascular: reports: Lightheadedness (needs to wait on bedside prior to walking; no falls), Exertional dyspnea, Decr. exercise tolerance - Respiratory Respiratory: reports: SOB at rest (occasional; has oxygen no further hypoxic episodes), SOB with exertion. 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 and anxiety) - Psychiatric Psychiatric: reports: Depression, Anxiety (gets very tremorous with anxiety or pain) - Endocrine Endocrine: reports: Intolerance to cold - Hematologic/Lymphatic Hematologic/Lymphatic: reports: Anemia, Recurrent infections (last two UAs showed yeast;) - All Other Systems All Other Systems: reports: Reviewed and negative Physical Exam - Vital Signs Temperature: 96.5 C Pulse Rate: 88 Respiratory Rate: 20 O2 Saturation: 94 (ra @ rest) Blood Pressure: 132/82 - Physical Exam General Appearance: positive: Mild distress, Anxious Eyes Bilateral: positive: Normal inspection ENT: positive: No signs of dehydration Neck: positive: No JVD, Trachea midline Cardiovascular: positive: Regular rate & rhythm Respiratory: positive: No respiratory distress Abdomen: positive: Soft, Tenderness, Guarding Skin: positive: Pallor, Dryness Extremities: positive: No pedal edema Neurologic/Psychiatric: positive: Oriented x3, Weakness (noticing getting weaker over last couple of weeks), Other (anxious and somewhat tearful) Palliative Care - POLST Patient has POLST: Yes POLST Status: DNR, Comfort Measures (redid POLST to be reflective of goals as transition to hospice) Pain: Pain worsening, Location (right groin/dysuria; see HPI) Tiredness/Fatigue: Moderate (4-6) Drowsiness/Sedation: Mild (1-3) Nausea: Moderate (4-6) Depression: Mild (1-3) Anxiety: Moderate (4-6) Dyspnea: Mild (1-3) Anorexia: Moderate (4-6), Weight loss Sleep: Variable sleep pattern (up at night to void) Constipation: Yes, Opoid induced, Managed Performance Status: Patient able to walk short distances within home, does use domingo and furniture if feeling unsteady. She does feel she is getting weaker. Her daughter does assist her with bathing, currently she is now able to walk up the stairs to the shower, unclear how long she is can really do this safely. She does spend most of her time in a recliner. She has had less energy and willingness to go out. I would put her at a PPS of 60% - Palliative Care Discussion: Had lengthy conversation regarding patient's goals of care, we did review the information that her prognosis is limited and the chemotherapy would be palliative only, but chemotherapy may actually add to her burden and hasten her decline, daughter is very fearful patient's last days will be spent in the hospital, without any good outcome. Did discuss Dr. Garcia recommendations regarding chemotherapy versus palliative/hospice care. When teased out patient' s most important goal, is spending time at home and with her family and with her daughter, it was agreed upon that hospice would be the best support to meet this goal. Patient is quite frail, still remains at high risk for the sequela of recurrent sepsis, is pending appointment with Dr. Hutton the urologist, today regarding stent. Given patient's ongoing dysuria and discomfort, a list of questions was put forth including considering returning to the nephrostomy. Obtain copy of the DPO a which is Dana her daughter, and updated [facility]FE[facility] to reflect her goals of DNA are and comfort focused treatment.Counseling regarding the hospice benefit including the hospice team, focus on not returning to the hospital, and limitations as far as regarding stent placement, will await final outcome of surgical date to arrange for admission Impression and Recommendations - Palliative Care Impression: This is a 67-year-old woman with stage IV cervical cancer with known extension into the bladder wall posteriorly. Her recent PET scan also shows a right middle lobe pulmonary nodule, most likely representing metastatic disease, as well as active tumor. Treatment plan given patient's limitations as far as declining radiation or surgery, Who presented with chemotherapy. Weighing risks and benefits in the context the patient's goals of care, which is to spend as much time with her family and at home, decision is made to transition to hospice after her stent has been replaced. Palliative care to continue to provide support and to hospice transition Recommendations/Counseling Done: 1.Pain of neoplastic origin. Counseling done regarding patient's resistance to use breakthrough pain medication, patient does not want to increase her confusion. In the context of this we did discuss titrating up her methadone given this has less side effects, she is currently on methadone 15 mg twice daily will increase the daytime dose at 1400-10 mg. Will also discuss with urologist today if there is something more to add to her comfort regarding her stent versus nephrostomy placement. 2. Dysuria. Patient did not respond to the Diflucan 1 week, this is a recommendation of Dr. Hoffmann. She still had an elevated white count, this also could be attributed to her disease. She has had intermittent night sweats , when evening of chills it sounds like, but nothing sustained no fever. Will not put her on the prophylactic Diflucan given minimal improvement. Requested she also ask urologist her advice if needs repeat urine, though these do often come back with high levels of red and white cells. 3. Constipation. Patient reports bowels are currently controlled on current regimen. 4. Advanced care planning. Family conference had regarding defining goals of care, choosing to move forward are not on chemotherapy, consensus with daughter and patient regarding patient's goals of care are to focus on quality of life, and spending as much time with family as possible, she would benefit more from the support of the hospice team. Did reach out to [facility], patient does want to continue with myself as attending, will need hospital bed frame, has long twin matches, patient is 6 feet. She will also need over the bed hospital table, commode, her oxygen currently is through [employer]. ELFEGO was completed, counseling regarding the hospice and hospice benefit, as well as providing psychosocial support. Time Spent: Time spent 60 minutes with greater than 50% of this done in counseling and coordination of care, anticipatory guidance, evaluation of pain medication and safety.
== END 2018-02-16 11:42 | disposition home or self-care (01) ==
LOC: PC 11:41
PROVIDERS: ATTEND Nurse Practitioner Adult Health
DX: Z51.5 Encounter for palliative care (principal); G89.3 Neoplasm related pain (acute) (chronic); C53.9 Malignant neoplasm of cervix uteri, unspecified; C79.11 Secondary malignant neoplasm of bladder; R30.0 Dysuria; K59.03 Drug induced constipation; T40.2X5D Adverse effect of other opioids, subsequent encounter; Z96.0 Presence of urogenital implants; Z79.891 Long term (current) use of opiate analgesic; M62.81 Muscle weakness (generalized); R11.0 Nausea; Z66 Do not resuscitate; F41.9 Anxiety disorder, unspecified
CPT/HCPCS: 99350

== ENCOUNTER 2018-02-23 14:41 | Outpatient (CLI) | payer MEDICARE, MEDICAID ==
--- NOTE | 2018-02-23 15:27 | CONSULTATION NOTE ---
Palliative Care Follow Up - Referral Referring Provider: Laurel HYDE Time of Visit: 4787-9157 Referral setting: Home (Is a taxing considerable effort for the patient leave the home secondary to fatigue and severe pain.) Referral Reason: Stage IV Cervical Cancer/Pain of neoplastic origing/Goals of care - Information Sources Records reviewed: Previous records reviewed History/Review of Systems obtained from: Patient, Family (Dana present for visit) Exam limitations: Clinical condition (patient feeling poorly; STM issues; anxious) - History of Present Illness Update Brief HPI Update: This is a 67-year-old woman with known stage IV cervical cancer with a mass involving the lower uterine segment/Cervix and continuous of the bladder wall. She is also left ureteral stent placement secondary to hydronephrosis from blockage from her tumor, she is also has a history of a right kidney removed. She has had chemo and radiation, and continues to have difficulty with residual cystitis, dysuria, and has been positive yeast in her urine. This is suspicion is most likely she probably has a fistula, her urine is quite contaminated, this is not a new finding. She has been treated for a positive yeast, this last round without any response or improvement. She is currently off her Diflucan. She did on have a follow-up PET scan, this did show progressive disease in the area of the original tumor as well as a right middle lobe pulmonary nodule assumed to be metastatic disease versus primary bronchogenic carcinoma. There has been much conversation given patient's on going declined, with her oncologist Dr. Ruiz, the decision was to not go second line chemotherapy has most likely would cause more burdensome than benefit, and his recommendation was to continue with palliative/hospice care. Patient had been pending stent/considering nephrostomy placement in hopes to better improve her pain control, in discussion with Dr. Riddle's office this week, given patient's limited life expectancy most likely would not benefit at this point in time. Conversation today again [place] around weighing benefit burden of putting her through a trip and had another procedure. Patient has had some fluctuating days , as far as alertness and confusion, she had a good day yesterday with improved pain management. We had increased her methadone last Monday, she continues to get weaker, have weight loss, still has acute on chronic pain at times, and is leaking urine much to her distress. Her abdomen is very tender, does not appear to be retaining, but certainly could be part of the picture. Hospice had been scheduled for after the procedure, given patient's ongoing decline, and goals of care particularly concerned for daughter as the patient has relief of her suffering and waiting sedation versus pain control, will continue to titrate medications and focus on comfort measures. Patient's other significant history includes hypertension, advanced COPD, anxiety disorder, surgery in the last couple years for aneurysm with coil placement. 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 She does continue to Vap though less, and uses marijuana a couple of times a day. Social History - Living Situation Living arrangement: At home Living Situation: With family Support System: She lives with her daughter Dana, there is Toby is a 5-year-old, and her . Dana also has a daughter who has been living there on and off. Dana is her [employer] worker, which has allowed her to take a leave from work, she does work at [employer] mostly on weekends. Patient does have 2 other sons, who sent from [place] has visited. She also since then in [place]. Her ask , also has a serious illness for which Dana is providing support for him and his as well Medications/Allergies - Medications Home Medications: Ambulatory Orders Medication Instructions Recorded Confirmed Fluticasone/Vilanterol [Breo 1 puffs INH DAILY 06/24/16 02/23/18 Ellipta 200-25 Mcg INH] Escitalopram Oxalate 20 mg PO DAILY 08/14/17 02/23/18 Ondansetron [Ondansetron Odt] 8 mg PO BID MDD 3 tabs 08/14/17 02/23/18 Polyethylene Glycol 3350 [Miralax] 17 gm PO DAILY PRN 08/14/17 02/23/18 Sennosides [Senna] 2 - 3 tab PO BID PRN 08/14/17 02/23/18 Albuterol Sulf [Ventolin Hfa 2 puffs INH Q4HR PRN 09/16/17 02/23/18 Inhaler] Budesonide/Formoterol Fumarate 2 puffs INH BID 09/16/17 02/23/18 [Symbicort 160-4.5 Mcg Inhaler] Ipratropium/Albuterol [Duoneb] 1 inh INH Q6HR PRN 11/03/17 02/23/18 Phenazopyridine [Pyridium] 100 - 200 mg PO TID PRN 11/25/17 02/23/18 Alprazolam [Xanax] 0.25 mg PO Q6HR PRN 12/15/17 02/23/18 Dexamethasone 2 mg PO DAILY 02/01/18 02/23/18 Methadone HCl 15 mg PO TID 02/01/18 02/23/18 Morphine Ir [Ms Ir] 15 - 30 mg PO Q4HR PRN 02/01/18 02/23/18 amLODIPine [Norvasc] 5 mg PO DAILY 02/01/18 02/23/18 - Allergies Allergies/Adverse Reactions: Allergies Allergy/AdvReac Type Severity Reaction Status Date / Time codeine Allergy Itching Verified 01/21/18 21:10 Review of Systems - Constitutional Constitutional: reports: Fatigue, Weakness, Poor appetite, Night sweats, Weight loss. denies: Fever - Eyes Eyes: reports: Vision loss, Corrective lenses - Ears, Nose & Throat Ears, Nose & Throat: reports: Dry mouth - Cardiovascular Cardiovascular: reports: Exertional dyspnea, Decr. exercise tolerance. denies: Chest pain, Edema - Respiratory Respiratory: reports: SOB with exertion. denies: Cough - Gastrointestinal Gastrointestinal: reports: Abdominal pain, Constipation (reports for last couple of days; increase discomfort with this), Nausea (controlled with BID ondansetron/dexamethasone), Poor appetite, Early satiety. denies: Reflux/ heartburn - Genitourinary Genitourinary: reports: Dysuria, Frequency, Urgency, Incontinence (leaking constantly), Other (vaginal examination to r/o yeast; redness/irritation but no s/s candidiasis) - Musculoskeletal Musculoskeletal: reports: Limited range of motion, Muscle weakness, Assistive devices (has walker; furniture walks to the bathroom; no recent falls) - Integumentary Integumentary: reports: Dryness - Neurological Neurological: reports: General weakness, Memory problems (cognitive decline; has baseline STM isssues) - Psychiatric Psychiatric: reports: Depression, Anxiety (severe anxiety at times; get tremulous with new situations or with anxiety) - Hematologic/Lymphatic Hematologic/Lymphatic: reports: Recurrent infections (urine despite high white/ red has been negative for bacteria; yeast treated this last time without improvement of symptoms;) - All Other Systems All Other Systems: reports: Reviewed and negative Physical Exam - Vital Signs Temperature: 96.5 C Pulse Rate: 96 Respiratory Rate: 18 O2 Saturation: 96 (ra @ rest) Blood Pressure: 124/72 - Physical Exam General Appearance: positive: Moderate distress (related to pain), Anxious Eyes Bilateral: positive: Normal inspection ENT: positive: Other (white coating on tongue; no plaques bucally and not uncomfortable; high risk for candidiasis) Neck: positive: No JVD, Trachea midline Cardiovascular: positive: Regular rate & rhythm Respiratory: positive: Diminished throughout Abdomen: positive: Nml bowel sounds, Tenderness, Guarding, Distended Skin: positive: Pallor (more greyish in color) Extremities: positive: No pedal edema, Other (ambulation less steady; appears weaker) Neurologic/Psychiatric: positive: Disoriented to time, Weakness, Depressed mood/ affect, Other (tremulous when talked about current situation; alert and engaged though deferred much of the questioning to Dana) Palliative Care - POLST Patient has POLST: Yes POLST Status: DNR, Comfort Measures (completed last visit) Pain: Pain worsening, Location (right mid abdomen to right groin; tender to touch unable to do palpation; methadone 15 mg AM/PM and 10 afternoon. Using MS 15 2 tabs for pain this am, takes the edge off; worsens when needs to void/or have bowel movement thinks its been two days) Tiredness/Fatigue: Severe (7-10) Drowsiness/Sedation: Moderate (4-6) (sleeping most of the time) Nausea: Mild (1-3) (controlled with ondansetron) Depression: Moderate (4-6) Anxiety: Severe (7-10) Dyspnea: Mild (1-3) (with activity) Anorexia: Moderate (4-6), Weight loss Sleep: Sleeps well (up tala 2-3 times last night; improved) Constipation: Yes, Opoid induced, Intermittent constipation Feelings of wellbeing/Perceived Quality of Life: Poor, Worsening Performance Status: Patient spends most of her time in the bed or recliner, is sleeping the most the day. She reports this is the time she is pain-free, she has very little energy. She did have some a good day yesterday, they have been fluctuating over the last week, today is not a good day with increased pain. Her daughter has been assisting her, unfortunately the shower is upstairs, most likely will require bed baths and support. She is currently still able to ambulate to the bathroom, has not had any falls, I would put her PPS of 50% - Palliative Care Discussion: Have an opportunity to speak with the patient apart from daughter, asked her how she was doing, she says "I do not like to think about it". She is trying to take it a day at a time, and she does get quite anxious about it. She does understand her decline, and the transition to hospice. She is deferring most of her decisions to Dana, at this point in time I doubt she can really weigh benefits and burdens of her medical decision-making capacity. Daughter is quite concerned as far as patient's benefit versus burden of following through on procedure on Monday, given patient's rapid decline I am in agreement. I did have a discussion with the urologist office and did have a recommendation if patient is within days to weeks this most likely would not be of benefit. She is quite focused as far as goals of care for her mother, She approved for she have sedation and pain relief versus be awake and interactive with the family. She feels that she has suffered through this over the last several weeks and wants her to have a comfortable respectful . She is actually able to take time off, to be her caregiver she is her [employer], this is allowed her opportunity to be able to financially be present for her mother and not work on the weekend. She is quite grateful for this. I did encourage her to call her adult protective caseworker, as she may have more hours with her decline available to her. Impression and Recommendations - Palliative Care Impression: This is a 67-year-old woman with stage IV cervical cancer, with lung metastases , and both functional and cognitive decline. Patient does have increasing pain , significant weakness, and goals have transition to focus on comfort. Given her decline over the last week, will forego urology appointment, and initiate hospice first available appointment is Sunday 02/25. Palliative care to transition to hospice, will remain the attending per family request. Recommendations/Counseling Done: 1. Pain of neoplastic origin. 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 Will increase methadone by 5 mg, patient now on methadone 15 mg 3 times daily, does have morphine 15-30 mg as needed for breakthrough pain, she does get some relief with this but not a lot. Pain is exacerbated by abdominal pressure from her bladder, she does get relief she does feel she is emptying her bladder, but she does have ongoing leakage. Will go ahead and have a Mcintosh catheter placed to see if this relieves this discomfort, she is distressed by the incontinence as well. E2. Anxiety. Patient does get quite tremulous when she is anxious, as she does have alprazolam available, she has not tolerated Lorazepam in the past. Did encourage if she is feeling overwhelmed that this is something she can have if she would like. She is worried about being confused again, did review the focus is for comfort. 3. Constipation. Daughter is been titrating senna appropriately, will titrate up for a couple days and see if she get relief. #4 anorexia. She does have fluctuating intake over the last few days, she has been drinking coconut water and boost. Today is not a good day,, did encourage fluids just to assist with dysuria. 4. Advanced care planning. After much discussion of weighing benefits and burdens of follow-up with the urologist, will go ahead and transition to hospice given patient's fairly significant decline over this last week. Goals of care continue to be to focus on comfort. Communication with hospice, they will admit on Monday. Report given to hospice medical laboratory technologist. Time Spent: 45 minutes with greater than 50% of this done in counseling regarding pain and symptom management, anticipatory guidance, coordination of care with hospice team
== END 2018-02-23 14:42 | disposition home or self-care (01) ==
LOC: PC 14:41
PROVIDERS: ATTEND Nurse Practitioner Adult Health
DX: Z51.5 Encounter for palliative care (principal); G89.3 Neoplasm related pain (acute) (chronic); C53.9 Malignant neoplasm of cervix uteri, unspecified; C79.11 Secondary malignant neoplasm of bladder; C78.00 Secondary malignant neoplasm of unspecified lung; F41.9 Anxiety disorder, unspecified; K59.03 Drug induced constipation; T40.2X5D Adverse effect of other opioids, subsequent encounter; Z96.0 Presence of urogenital implants; N30.90 Cystitis, unspecified without hematuria; R30.0 Dysuria; J44.9 Chronic obstructive pulmonary disease, unspecified; Z79.891 Long term (current) use of opiate analgesic; M62.81 Muscle weakness (generalized); Z66 Do not resuscitate
CPT/HCPCS: 99349